=== PATIENT | female | born 1945 | race Caucasian/White ===

== ENCOUNTER 2018-03-11 13:46 | Inpatient (IN) | payer MEDICARE ==
[~2018-03-11] VITALS: Ht 170.2 cm; Wt 68.9 kg
--- NOTE | ~2018-03-11 | PN ---
PATIENT:JANICE FAIRCHILD MEDICAL RECORD: [id number] LOCATION:[facility] ADMISSION DATE: 03/11/18 PROGRESS NOTE DATE OF SERVICE: 03/22/2018 SUBJECTIVE: No new complaint. OBJECTIVE: Staff report, the patient has not been aggressive, but continues to resist activities of daily living and hygiene. She refuses to shower. She has tended to be irritable from time to time. On exam, mood is somewhat irritable. Affect slightly brittle. Speech is terse. Content of thought focuses on somatic complaints. Sensorium shows no change (the patient did not cooperate for a neuropsychological testing with Dr. Giles). ASSESSMENT: No change in diagnosis. PLAN: 1. Continue current medication. 2. Continue supportive therapy. TRANSINT:[id number] Voice Confirmation ID: [id number] DOCUMENT ID: [id number] SUE TEAGUE III, MD at 1007 CC: [id number] DICTATION DATE: 03/22/18 1144 MANAGER EQUIPMENT: 03/22/18 1156 ADM IN [place] [address] [place] [address]
--- NOTE | ~2018-03-11 | PN ---
PATIENT:JANICE FAIRCHILD MEDICAL RECORD: [id number] LOCATION:[facility] ADMISSION DATE: 03/11/18 PROGRESS NOTE DATE OF SERVICE: 03/18/2018 SUBJECTIVE: No new complaint. OBJECTIVE: The patient has not exhibited hallucinosis over the last 24 hours. She is tolerating medication fairly well. On exam, mood is euthymic. Affect is reserved. Speech is tangential. Content of thought as noted above. Sensorium unchanged. ASSESSMENT: No change in diagnosis. PLAN: 1. Continue current medication. 2. Continue supportive therapy. TRANSINT:[id number] Voice Confirmation ID: [id number] DOCUMENT ID: [id number] SUE TEAGUE III, MD at 9232 CC: [id number] DICTATION DATE: 03/18/18 1032 INVESTIGATOR CLAIMS: 03/18/[address] [facility] [address] [place] [address]
--- NOTE | ~2018-03-11 | PN ---
PATIENT:JANICE FAIRCHILD MEDICAL RECORD: [id number] LOCATION:[facility] ADMISSION DATE: 03/11/18 PROGRESS NOTE DATE OF SERVICE: 03/23/2018 SUBJECTIVE: No new complaint. OBJECTIVE: The patient continues to be somewhat withdrawn. Affect remains flat. On exam, the patient makes poor eye contact. Mood is euthymic. Affect is very constricted. Speech is quite terse. Content of thought exhibits nonspecific paranoid ideation. Sensorium is unchanged. The patient is oriented to person only. ASSESSMENT: No change in diagnosis. PLAN: 1. Continue current medication. 2. Continue supportive therapy. TRANSINT:[id number] Voice Confirmation ID: [id number] DOCUMENT ID: [id number] SUE TEAGUE III, MD at 0951 CC: [id number] DICTATION DATE: 03/23/18 112 TAPE RECORDER REPAIRER: 03/23/18 1311 ADM IN [facility] [address] [place] [address]
--- NOTE | ~2018-03-11 | PN ---
PATIENT:JANICE FAIRCHILD MEDICAL RECORD: [id number] LOCATION:[facility] ADMISSION DATE: 03/11/18 PROGRESS NOTE DATE OF SERVICE: 03/24/2018 SUBJECTIVE: No new complaint. OBJECTIVE: The patient remains fairly cooperative. No new problems have been noted. She is tolerating medications well. On exam, mood is euthymic. Affect is very constricted. Speech quite terse. Content of thought unchanged. Sensorium unchanged. ASSESSMENT: No change in diagnosis. PLAN: 1. Continue current medication. 2. Anticipate discharge tomorrow. TRANSINT:[id number] Voice Confirmation ID: [id number] DOCUMENT ID: [id number] SUE TEAGUE III, MD at 1027 CC: [id number] DICTATION DATE: 03/24/18 1058 CASH MANAGEMENT COORDINATOR: 03/24/18 1117 ADM IN [place] [address] [place] [address]
--- NOTE | ~2018-03-11 | PN ---
PATIENT:JANICE FAIRCHILD MEDICAL RECORD: [id number] LOCATION:[facility] ADMISSION DATE: 03/11/18 PROGRESS NOTE DATE OF SERVICE: 03/15/2018 SUBJECTIVE: No new complaint. OBJECTIVE: The patient remains extremely confused, but is now resting well. She is taking medications as prescribed. On exam, mood is euthymic. Affect is constricted. Speech is low in volume and terse. Content of thought negative for overt psychosis. Sensorium unchanged. ASSESSMENT: No change in diagnosis. PLAN: 1. Maintain current medication. 2. Continue supportive therapy. TRANSINT:[id number] Voice Confirmation ID: [id number] DOCUMENT ID: [id number] SUE TEAGUE III, MD at 1133 CC: [id number] DICTATION DATE: 03/15/18 1244 RAG SORTER: 03/15/[address] [facility] [address] [place] [id number]
--- NOTE | ~2018-03-11 | PN ---
PATIENT:JANICE FAIRCHILD MEDICAL RECORD: [id number] LOCATION:[facility] ADMISSION DATE: 03/11/18 PROGRESS NOTE DATE OF SERVICE: 03/16/2018 SUBJECTIVE: No new complaint noted. OBJECTIVE: The patient has been fairly cooperative. 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 On exam, mood is euthymic. Affect is fairly bland. Speech is tangential. Content of thought negative for suicidal ideation. Sensorium is unchanged. ASSESSMENT: No change in diagnosis. PLAN: 1. We will discontinue trazodone and Namenda at night. 2. Add perphenazine 2 mg at bedtime. 3. Continue other medications and supportive therapy. TRANSINT:[id number] Voice Confirmation ID: [id number] DOCUMENT ID: [id number] SUE TEAGUE III, MD at 1019 CC: [id number] DICTATION DATE: 03/16/18 1149 ACCOUNTING SYSTEMS ANALYST: 03/16/18 1204 ADM IN [place] [address] [place] [id number]
--- NOTE | ~2018-03-11 | PN ---
PATIENT:JANICE FAIRCHILD MEDICAL RECORD: [id number] LOCATION:[facility] ADMISSION DATE: 03/11/18 PROGRESS NOTE DATE OF SERVICE: 03/20/2018 SUBJECTIVE: No new complaint. OBJECTIVE: The patient continues to show some lability of affect and requires redirection. She is taking medication as prescribed. On exam, mood is somewhat irritable. Affect is shallow and brittle. Speech is tangential. Content of thought shows nonspecific paranoid ideation. Sensorium shows no change. ASSESSMENT: No change in diagnosis. PLAN: 1. Continue current medication. 2. Continue supportive therapy. TRANSINT:[id number] Voice Confirmation ID: [id number] DOCUMENT ID: [id number] SUE TEAGUE III, MD at 1012 CC: [id number] DICTATION DATE: 03/20/18 0710 FIELD ARTILLERY RADAR OPERATOR: 03/20/18 0908 ADM IN [place] [id number] [place] [address]
--- NOTE | ~2018-03-11 | PN ---
PATIENT:JANICE FAIRCHILD MEDICAL RECORD: [id number] LOCATION:[facility] ADMISSION DATE: 03/11/18 PROGRESS NOTE DATE OF SERVICE: 03/19/2018 SUBJECTIVE: No new complaint. OBJECTIVE: The patient is doing fairly well. She exhibits very poor concentration and short-term memory. However, she has been overall cooperative. On exam today, the patient's mood is pleasant and euthymic. Affect is bland. Speech is tangential. Content of thought is negative for overt psychosis. Sensorium unchanged. ASSESSMENT: No change in diagnosis. PLAN: 1. Continue current medication. 2. Continue supportive therapy. TRANSINT:[id number] Voice Confirmation ID: [id number] DOCUMENT ID: [id number] SUE TEAGUE III, MD at 1229 CC: [id number] DICTATION DATE: 03/19/18 1125 NURSING SERVICE DIRECTOR: 03/19/18 1129 ADM IN [place] [address] [place] [address]
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
--- NOTE | ~2018-03-11 | PN ---
PATIENT:JANICE FAIRCHILD MEDICAL RECORD: [id number] LOCATION:[facility] ADMISSION DATE: 03/11/18 PROGRESS NOTE DATE OF SERVICE: 03/17/2018 SUBJECTIVE: No new complaint. OBJECTIVE: The patient describes the other patients as "children." She shows other evidence of indeed exhibiting some visual hallucinosis. On exam, mood is euthymic. Affect is very constricted. Speech is terse. Content of thought as noted above. Sensorium unchanged. ASSESSMENT: No change in diagnosis. PLAN: 1. We will get neuropsychological testing with Dr. Giles. 2. Continue current medications and supportive therapy. TRANSINT: Voice Confirmation ID: [id number] DOCUMENT ID: [id number] SUE TEAGUE III, MD at 1829 CC: [id number] DICTATION DATE: 03/17/18 1116 LIEN SEARCHER: 03/17/18 1134 ADM IN [facility] [address] [place] [address]
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
[~2018-03-11 13:46] MED LIST: ARICEPT10 MG PO; ASPIRIN81 MG PO; LEVOXYL50 MCG PO; MEGACE40 MG PO; PLAVIX75 MG PO
[2018-03-11] MEDS ORDERED: BUSPAR10 MG PO (17:48)
[2018-03-11] MEDS ORDERED: DEPAKOTE SPRIN125 MG PO (17:50)
[2018-03-11] MEDS ORDERED: MOBIC7.5 MG PO (17:52)
[2018-03-11] MEDS ORDERED: NAMENDA5 MG PO (17:53)
[2018-03-11] MEDS ORDERED: ZOCOR20 MG PO (17:54)
[2018-03-11] MEDS ORDERED: VITAMIN B-121000 MCG PO (17:55)
[2018-03-11] MEDS ORDERED: TRAZODONE HCL50 MG PO ×2 (17:55→17:57)
[2018-03-11] MEDS ORDERED: ATIVAN0.5 MG PO (17:57)
[2018-03-11 18:15] LABS: BASOPHILS 0.9 % (0-2); EOSINOPHILS 4.8 % (0-7); HEMATOCRIT 39.7 % (36.0-48.0); IMMATURE GRANULOCYTES 0.1 % (0-5); LYMPHOCYTES 38.4 % (15-50); MCH 31.2 pg (26.0-34.0); MCHC 32.7 g/dL (31.0-37.0); MCV 95.2 fL (80.0-100.0); MONOCYTES 9.3 % (2-11); NEUTROPHILS 46.5 % (40-80); PLATELET COUNT 219 10x3/uL (130-400); RBC 4.17 10x6/uL (4.00-5.40); RDW 13.1 % (11.5-14.5); WBC 7.6 10x3/uL (4.8-10.8)
[2018-03-11 18:43] LABS: ALBUMIN 3.5 g/dL (3.4-5.0); ALKALINE PHOSPHATASE 107 U/L (46-116); ALT (SGPT) 12 U/L (10-68); BILIRUBIN - TOTAL 0.28 mg/dL (0.2-1.3); CALC OSMOLALITY 287 mosm/kg (275-300); CARBON DIOXIDE 32.2 mmol/L (21.0-32.0); CHLORIDE - SERUM 107 mmol/L (98-107); CHOLESTEROL, TOTAL 150 mg/dL (0-200); CREATININE - SERUM 0.8 mg/dL (0.6-1.3); GLUCOSE 102 mg/dL (74-106); HDL CHOLESTEROL 75 mg/dL (32-96); LDL CHOLESTEROL 65 mg/dL (0-100); LDL-HDL RATIO 0.9 ratio (1.5-3.5); POTASSIUM - SERUM 3.9 mmol/L (3.5-5.1); PROTEIN - SERUM 7.2 g/dL (6.4-8.2); SODIUM 145 mmol/L (136-145); THYROID STIMULATING HORMONE 0.12 uIU/mL (0.36-3.74); TRIGLYCERIDE 54 mg/dL (30-200); UREA NITROGEN 9 mg/dL (7-18); eGFR NON AFRICAN AMERICAN 75 mL/min (90-120)
[2018-03-11 18:44] VITALS: BP 151/72
[2018-03-11 19:24] VITALS: BP 174/74
[2018-03-12 08:12] VITALS: BP 142/87
[2018-03-12 14:43] LABS: APPEARANCE SLT CLOUDY (CLEAR); BACTERIA FEW /hpf (NONE SEEN); BILIRUBIN NEGATIVE (NEGATIVE); COLOR YELLOW (YELLOW); EPITHELIAL CELLS 0-5 /hpf (0-5); GLUCOSE NEGATIVE (NEGATIVE); KETONE NEGATIVE (NEGATIVE); MUCUS <1+ /lpf (NONE SEEN); NITRITE NEGATIVE (NEGATIVE); PROTEIN NEGATIVE (NEGATIVE); WHITE CELLS - URINE 0-5 /hpf (0-5)
[2018-03-12 15:04] VITALS: BMI 23.8
[2018-03-12 19:41] VITALS: BP 145/73
[2018-03-13 05:15] LABS: RAPID PLASMA REAGIN Non Reactive (Non Reactive)
[2018-03-13 08:03] VITALS: BP 164/45
[2018-03-13 08:18] LABS: FOLATE (FOLIC ACID) - SERUM 9.7 ng/mL (>3.0)
[2018-03-13 21:06] LABS: VITAMIN D 25 HYDROXY 15.3 ng/mL (30.0-100.0)
[2018-03-14 08:24] VITALS: BP 148/67
[2018-03-15 08:13] VITALS: BMI 23.8
[2018-03-15 10:28] VITALS: BP 186/83
[2018-03-15 20:21] VITALS: BP 169/64
[2018-03-16 10:15] VITALS: BP 117/60
[2018-03-16 19:38] VITALS: BP 195/87
[2018-03-17 08:31] VITALS: BP 179/68
[2018-03-18 08:10] VITALS: BP 142/85
[2018-03-18 14:11] VITALS: Ht 170.2 cm; Wt 68.9 kg
[2018-03-18 19:08] VITALS: BP 191/81
[2018-03-19 07:43] VITALS: BP 99/75
[2018-03-19 19:26] VITALS: BP 139/73
[2018-03-20 11:48] VITALS: BP 117/65
[2018-03-20 19:33] VITALS: BP 184/72
[2018-03-21 07:00] VITALS: BP 133/76
[2018-03-21 20:11] VITALS: BP 157/85
[2018-03-22 07:00] VITALS: BP 157/67
[2018-03-22 19:39] VITALS: BP 159/79
[2018-03-23 09:08] VITALS: BP 119/62
[2018-03-23 19:36] VITALS: BP 143/69
[2018-03-24 10:02] VITALS: BP 137/63
[2018-03-24] MEDS ORDERED: LISINOPRIL10 MG PO (11:02)
[2018-03-24] MEDS ORDERED: NORVASC5 MG PO (11:02)
[2018-03-24] MEDS ORDERED: PERPHENAZINE2 MG PO (11:03)
[2018-03-24] MEDS ORDERED: FOLIC ACID1 MG PO (11:04)
[2018-03-24] MEDS ORDERED: VITAMIN D5000 UNIT PO (11:04)
[2018-03-24 19:51] VITALS: BP 146/56
[2018-03-25 10:30] VITALS: BP 10/65
== END 2018-03-25 14:30 | DRG 57 ==
LOC: D.PSYCH 13:46
PROVIDERS: Psychiatry & Neurology Psychiatry
DX: G30.9 Alzheimer's disease, unspecified (principal); F02.81 Dementia in other diseases classified elsewhere, unspecified severity, with behavioral disturbance; I10 Essential (primary) hypertension; E53.8 Deficiency of other specified B group vitamins; E55.9 Vitamin D deficiency, unspecified; E03.9 Hypothyroidism, unspecified; E78.5 Hyperlipidemia, unspecified; F41.9 Anxiety disorder, unspecified; M19.90 Unspecified osteoarthritis, unspecified site

== ENCOUNTER 2018-05-25 18:06 | Inpatient (IN) | payer MEDICARE, MEDICAID ==
[~2018-05-25] VITALS: Ht 170.2 cm; Wt 67.3 kg
--- NOTE | ~2018-05-25 | PN ---
PATIENT:JANICE FAIRCHILD MEDICAL RECORD: [id number] LOCATION:[facility]RAJEE[facility] AlekEvesnLisseth ADMISSION DATE: 05/25/18 PROGRESS NOTE DATE OF SERVICE: 05/28/2018 SUBJECTIVE: The patient's case was discussed with staff. She has no new complaint. OBJECTIVE: The patient is in good behavioral control with limited insight about her condition. She does tolerate her medicines well. Eye contact is fair. Concentration is fair. ASSESSMENT: No change in diagnoses. PLAN: Supportive and educational interventions were made. Long-term prognosis is guarded. TRANSINT:[id number] Voice Confirmation ID: [id number] DOCUMENT ID: [id number] KELLY BUITRAGO MD at 1223 CC: [id number] DICTATION DATE: 05/28/18 1457 CALENDERING MACHINE OPERATOR: 05/28/18 1509 ADM IN [place] [address] [place] [address]
--- NOTE | ~2018-05-25 | PN ---
PATIENT:JANICE FAIRCHILD MEDICAL RECORD: [id number] LOCATION:[facility] GastonEvensLisseth ADMISSION DATE: 05/25/18 PROGRESS NOTE DATE OF SERVICE: 05/31/2018 SUBJECTIVE: The patient's case was discussed with staff. She has no new complaint. OBJECTIVE: The patient is in good behavioral control with limited insight about her condition. She is confused and apparently has a urinary tract infection. ASSESSMENT: No change in diagnoses. PLAN: Supportive and educational interventions were made. Long-term prognosis guarded. TRANSINT:[id number] Voice Confirmation ID: [id number] DOCUMENT ID: [id number] KELLY BUITRAGO MD at 1406 CC: [id number] DICTATION DATE: 05/31/18 1142 PUSHER RUNNER: 05/31/18 1202 ADM IN [place] [address] [place] [address]
--- NOTE | ~2018-05-25 | PN ---
PATIENT:JANICE FAIRCHILD MEDICAL RECORD: [id number] LOCATION:[facility] ADMISSION DATE: 05/25/18 PROGRESS NOTE DATE OF SERVICE: 06/08/2018 SUBJECTIVE: The patient's case was discussed with staff. She has no new complaint. OBJECTIVE: The patient denies any intent to harm herself or others. She is severely impaired cognitively, but has not been aggressive. She is only eating marginally well and is sleeping very well. ASSESSMENT: No change in diagnoses. PLAN: Supportive and educational interventions were made. The patient will be monitored for clinical changes associated with her current medicines. TRANSINT:[id number] Voice Confirmation ID: [id number] DOCUMENT ID: [id number] KELLY BUITRAGO MD at 1234 CC: [id number] DICTATION DATE: 06/08/181915 AIR SEALING TECHNICIAN: 06/08/182009 ADM IN [facility] [address] [place] [address]
--- NOTE | ~2018-05-25 | PN ---
PATIENT:JANICE FAIRCHILD MEDICAL RECORD: [id number] LOCATION:[facility] ADMISSION DATE: 05/25/18 PROGRESS NOTE DATE OF SERVICE: 06/01/2018 SUBJECTIVE: The patient's case was discussed with staff. She has no new complaint. OBJECTIVE: The patient is denying intent to harm herself or others. She did tolerate her initial dose of Lexapro well. ASSESSMENT: No change in diagnoses. PLAN: The patient does have a depressed mood. She is taking Lexapro and I am going to increase the dose of the medication from 5 to 10 mg daily. Her long-term prognosis is guarded. TRANSINT:[id number] Voice Confirmation ID: [id number] DOCUMENT ID: [id number] KELLY BUITRAGO MD at 1339 CC: [id number] DICTATION DATE: 06/01/18 1432 POLY AREA SUPERVISOR: 06/01/18 1443 ADM IN [place] [address] [place] [address]
--- NOTE | ~2018-05-25 | PN ---
PATIENT:JANICE FAIRCHILD MEDICAL RECORD: [id number] LOCATION:[facility] ADMISSION DATE: 05/25/18 PROGRESS NOTE DATE OF SERVICE: 05/27/2018 SUBJECTIVE: The patient's case was discussed with staff. She has no new complaint. OBJECTIVE: The patient is severely impaired cognitively, but her behavior is better today. She denies that she would seek to harm herself or others. ASSESSMENT: No change in diagnoses. PLAN: Brief supportive and educational interventions were made. Long-term prognosis is guarded. TRANSINT:[id number] Voice Confirmation ID: [id number] DOCUMENT ID: [id number] KELLY BUITRAGO MD at 1322 CC: [id number] DICTATION DATE: 05/27/18 1206 HOUSE DECORATOR: 05/27/18 1218 ADM IN [place] [address] [place] [address]
--- NOTE | ~2018-05-25 | DS ---
PATIENT:JANICE FAIRCHILD :47 MEDICAL RECORD: [id number] DISCHARGE SUMMARY ADMISSION DATE: 05/25/18 DISCHARGE DATE: 06/10/18 IDENTIFYING DATA: The patient is 72 years old and she was admitted to the hospital on a voluntary basis because of agitation. The patient lives in a local long term and has a long established diagnosis of dementia. She recently has become confused, agitated, and aggressive at the long term. She was admitted to this facility to address those behaviors and she was unable to provide much in the way of useful history because of her advanced dementia. HOSPITAL COURSE: The patient was admitted to the hospital and evaluated from both a medical, psychological, and social standpoint. She was treated with both mood stabilizing and memory enhancing medications. She showed significant improvement in her underlying behaviors. She was subsequently transferred to the long term and follow up is to be with her primary care long term physician. TRANSINT:[id number] Voice Confirmation ID: [id number] DOCUMENT ID: [id number] KELLY BUITRAGO MD at 1053 CC: [id number] DICTATION DATE: 06/18/18 1330 CRYOGENIC TRANSPORT DRIVER: 06/18/18 1343 DIS IN 06/10/18 [facility] [address] [place] [address]
--- NOTE | ~2018-05-25 | PN ---
PATIENT:JANICE FAIRCHILD MEDICAL RECORD: [id number] LOCATION:EDSON ReyesLisseth ADMISSION DATE: 05/25/18 PROGRESS NOTE DATE OF SERVICE: 06/09/2018 SUBJECTIVE: The patient's case was discussed with staff. She has no new complaint. OBJECTIVE: The patient denies intent to harm herself or others. She generally tolerates her medicines well. Eye contact is fair. ASSESSMENT: No change in diagnoses. PLAN: Current medicines will be maintained. I am going to discharge the patient tomorrow unless her condition worsens. TRANSINT:[id number] Voice Confirmation ID: [id number] DOCUMENT ID: [id number] KELLY BUITRAGO MD at 1336 CC: [id number] DICTATION DATE: 06/09/18 1329 SPEECH AND LANGUAGE SPECIALIST: 06/09/18 1336 ADM IN [facility] [address] [place] [id number]
--- NOTE | ~2018-05-25 | PN ---
PATIENT:JANICE FAIRCHILD MEDICAL RECORD: [id number] LOCATION:[facility] Goodman ADMISSION DATE: 05/25/18 PROGRESS NOTE DATE OF SERVICE: 06/05/2018 SUBJECTIVE: The patient's case was discussed with staff. She has no new complaint. OBJECTIVE: The patient refused her medicines this morning for reasons that are unknown. She has pretty limited insight about her condition, but with great effort the staff has been able to go back to her every hour or so and get her to take 1 or 2 pills. Generally, she has been compliant, so I am not sure why she is refusing medicines today. ASSESSMENT: No change in diagnoses. PLAN: Brief supportive and educational interventions were made. Long-term prognosis is guarded. TRANSINT:[id number] Voice Confirmation ID: [id number] DOCUMENT ID: [id number] KELLY BUITRAGO MD at 1326 CC: [id number] DICTATION DATE: 06/05/18 1320 COMPLEX CASE MANAGER: 06/05/18 1431 ADM IN [place] [address] [place] [id number]
--- NOTE | ~2018-05-25 | PN ---
PATIENT:JANICE FAIRCHILD MEDICAL RECORD: [id number] LOCATION:AlekERROL AmyLisseth ADMISSION DATE: 05/25/18 PROGRESS NOTE DATE OF SERVICE: 06/07/2018 SUBJECTIVE: The patient's case was discussed with staff. She has no new complaint. OBJECTIVE: The patient denies intent to harm herself or others. She is tolerating her medications well. She has pretty limited insight about her situation. She is on an antidepressant, but continues to have a depressed mood. She only ate about half of what was presented to her last night, but she did sleep 10 hours and does not look over sedated today. There is an ongoing problem with paranoia, for which I have prescribed the Trilafon, but if she continues to not have improvement in her paranoia, I am going to have to change to a different agent because I do not want to excessively sedate her at night. For today, I am just going to leave things as they are. TRANSINT:[id number] Voice Confirmation ID: [id number] DOCUMENT ID: [id number] KELLY BUITRAGO MD at 1329 CC: [id number] DICTATION DATE: 06/07/18 1443 CONTINUITY TESTER: 06/07/18 1449 ADM IN [place] [id number] [place] [address]
--- NOTE | ~2018-05-25 | PN ---
PATIENT:JANICE FAIRCHILD MEDICAL RECORD: [id number] LOCATION:[facility] Goodman ADMISSION DATE: 05/25/18 PROGRESS NOTE DATE OF SERVICE: 06/06/2018 SUBJECTIVE: The patient's case was discussed with staff. She has no new complaint. OBJECTIVE: The patient denies intent to harm herself or others. She is tolerating her medicines well. Eye contact is fair. ASSESSMENT: No change in diagnoses. PLAN: The patient is extremely confused and unfortunately is not eating as well as I would like. I am going to continue to encourage her to eat and have prescribed Megace. TRANSINT:[id number] Voice Confirmation ID: [id number] DOCUMENT ID: [id number] KELLY BUITRAGO MD at 1326 CC: [id number] DICTATION DATE: 06/06/18 1254 REAR LOAD TRUCK DRIVER: 06/06/18 1305 ADM IN [place] [address] [place] [id number]
--- NOTE | ~2018-05-25 | PSY ---
PATIENT NAME:JANICE FAIRCHILD MEDICAL RECORD: [id number] : 47 LOCATION:[facility] ADMISSION DATE: 05/25/18 ACCOUNT: [id number] PSYCHIATRIC EVALUATION DATE OF EVALUATION: 05/26/18 PSYCHIATRIC EVALUATION IDENTIFYING DATA: The patient is 72 years old and she is admitted to the hospital on a voluntary basis. CHIEF COMPLAINT: Agitation. HISTORY OF PRESENT ILLNESS: The patient lives in a local skilled nursing. She has a known and established diagnosis of dementia. She has recently been increasingly confused, agitated, and aggressive at the skilled nursing. She was admitted to this facility in February for similar reasons. She is not able to provide much in the way of useful history. PAST MEDICAL HISTORY: Significant for hypothyroidism, emphysema, hypertension. PAST PSYCHIATRIC HISTORY: Significant for an established diagnosis of dementia and one previous hospitalization because of agitated behavior associated with the dementia. FAMILY HISTORY: Unknown. ALLERGIES: No known drug allergies. CURRENT MEDICATIONS: Include Norvasc, lisinopril, Trilafon, vitamin D, and folic acid. SOCIAL HISTORY: The patient is a former smoker. She does not have a history of drug or alcohol use. She is and has 2 biologic children. She lives in a skilled nursing in [place]. MENTAL STATUS EXAMINATION: The patient is awake, alert, and oriented to person only. Her mood is flat. Her affect is generally appropriate. Thought processes are disorganized and her memory, concentration, and abstraction abilities are at least moderately impaired. She denies that she would seek to harm herself or others and she denies psychotic symptoms. ASSETS: Supportive family members. LIABILITIES: Limited insight. DIAGNOSTIC IMPRESSION: AXIS I: Senile dementia of the Alzheimer's type with behavioral disturbances. AXIS II: None. AXIS III: Hypertension and hypothyroidism. AXIS IV: Moderate stressors. AXIS V: Global assessment of functioning is 30. PLAN: At this time, the patient is admitted to the hospital for a comprehensive medical, psychological, and social evaluation. She will be treated with both memory enhancing and mood stabilizing medications. Her long-term prognosis is guarded. TRANSINT:[id number] Voice Confirmation ID: [id number] DOCUMENT ID: [id number] KELLY BUITRAGO MD at 1053 CC: [id number] DICTATION DATE: 05/26/18 1435 UPHOLSTERY HANDLER: 05/26/18 1516 ADM IN [facility] [address] [facility] [place] [address]
--- NOTE | ~2018-05-25 | PN ---
PATIENT:JANICE FAIRCHILD MEDICAL RECORD: [id number] LOCATION:[facility] ADMISSION DATE: 05/25/18 PROGRESS NOTE DATE OF SERVICE: 05/30/2018 SUBJECTIVE: The patient's case was discussed with staff. She has no new complaint. OBJECTIVE: The patient denies intent to harm herself or others. She is quite confused. She has not been aggressive today. She is not eating very well, but it is marginally adequate. She is sleeping well. ASSESSMENT: No change in diagnoses. PLAN: Current medicines and therapies have been reviewed and will be maintained. Long-term prognosis is guarded. TRANSINT:[id number] Voice Confirmation ID: [id number] DOCUMENT ID: [id number] KELLY BUITRAGO MD at 1059 CC: [id number] DICTATION DATE: 05/30/18 1102 AUDIOVISUAL AIDS TECHNICIAN: 05/30/18 1118 ADM IN [facility] [address] [place] [address]
--- NOTE | ~2018-05-25 | PN ---
PATIENT:JANICE FAIRCHILD MEDICAL RECORD: [id number] LOCATION:[facility] ADMISSION DATE: 05/25/18 PROGRESS NOTE DATE OF SERVICE: 06/03/2018 SUBJECTIVE: The patient's case was discussed with staff. She has no new complaint. OBJECTIVE: The patient denies intent to harm herself or others. She generally tolerates her medicines well. ASSESSMENT: No change in diagnoses. PLAN: The patient will have her Lexapro increased to 20 mg daily. She has pretty limited insight about her condition, but I do think that she has some depressive symptoms that may respond to the Lexapro. TRANSINT:[id number] Voice Confirmation ID: [id number] DOCUMENT ID: [id number] KELLY BUITRAGO MD at 1222 CC: [id number] DICTATION DATE: 06/03/18 1255 PAROLE BOARD MEMBER: 06/03/18 1301 ADM IN [facility] [address] [place] [address]
--- NOTE | ~2018-05-25 | PN ---
PATIENT:JANICE FAIRCHILD MEDICAL RECORD: [id number] LOCATION:[facility]isseth ADMISSION DATE: 05/25/18 PROGRESS NOTE DATE OF SERVICE: 05/29/2018 SUBJECTIVE: The patient's case was discussed with staff. She has no new complaint. OBJECTIVE: The patient denies intent to harm herself or others. She is quite confused. She has very limited insight about her situation. ASSESSMENT: No change in diagnoses. PLAN: Supportive and educational interventions were made. Long-term prognosis is guarded. TRANSINT:[id number] Voice Confirmation ID: [id number] DOCUMENT ID: [id number] KELLY BUITRAGO MD at 1045 CC: [id number] DICTATION DATE: 05/29/18 1246 CONSULTING SME: 05/29/18 1257 ADM IN [place] [address] [place] [address]
--- NOTE | ~2018-05-25 | PN ---
PATIENT:JANICE FAIRCHILD MEDICAL RECORD: [id number] LOCATION:[facility] ADMISSION DATE: 05/25/18 PROGRESS NOTE DATE OF SERVICE: 06/04/2018 SUBJECTIVE: The patient's case was discussed with staff. She has no new complaint. OBJECTIVE: The patient is severely impaired cognitively, but has been in good behavioral control. I think part of that is related to her underlying improvement and part of it is just simply related to the fact that she is in a highly structured environment where staff are monitoring her and her behavior closely. ASSESSMENT: No change in diagnoses. PLAN: Current medicines have been reviewed and will be maintained with the exception of the Namenda, which I am going to increase to 5 mg twice daily. Her long-term prognosis is guarded. TRANSINT:[id number] Voice Confirmation ID: [id number] DOCUMENT ID: [id number] KELLY BUITRAGO MD at 1243 CC: [id number] DICTATION DATE: 06/04/18 1302 TOOLER: 06/04/18 1314 ADM IN [place] [address] [place] [address]
--- NOTE | ~2018-05-25 | PN ---
PATIENT:JANICE FAIRCHILD MEDICAL RECORD: [id number] LOCATION:[facility] Rex ADMISSION DATE: 05/25/18 PROGRESS NOTE DATE OF SERVICE: 06/02/2018 SUBJECTIVE: The patient's case was discussed with staff. She has no new complaint. OBJECTIVE: The patient denies intent to harm herself or others. She generally tolerates her medicines well. ASSESSMENT: No change in diagnoses. PLAN: Current medicines have been reviewed and will be maintained. Her long-term prognosis is guarded. I am going to raise the dose of her Lexapro to 15 mg daily. TRANSINT:[id number] Voice Confirmation ID: [id number] DOCUMENT ID: [id number] KELLY BUITRAGO MD at 1234 CC: [id number] DICTATION DATE: 06/02/18 1406 WELDING PANTOGRAPH OPERATOR: 06/02/18 1419 ADM IN [place] [id number] [place] [id number]
--- NOTE | ~2018-05-25 | PN ---
PATIENT:JANICE FAIRCHILD MEDICAL RECORD: [id number] LOCATION:[facility] AlekEvensLisseth ADMISSION DATE: 05/25/18 PROGRESS NOTE DATE OF SERVICE: 06/10/2018 SUBJECTIVE: The patient's case was discussed with staff. She has no new complaint. OBJECTIVE: The patient is in good behavioral control with poor insight about her condition. ASSESSMENT: No change in diagnoses. PLAN: Brief supportive and educational interventions were made. Long-term prognosis is guarded. I anticipate that she can be transitioned out of the hospital today and follow up will be with her primary care care home physician. TRANSINT:[id number] Voice Confirmation ID: [id number] DOCUMENT ID: [id number] KELLY BUITRAGO MD at 1435 CC: [id number] DICTATION DATE: 06/10/18 1403 COMMERCIAL REVIEW APPRAISER: 06/10/18 1413 DIS IN 06/10/18 [facility] [address] [place] [address]
[~2018-05-25 18:06] MED LIST changes: +ATIVAN0.5 MG PO; +BUSPAR10 MG PO; +DEPAKOTE SPRIN125 MG PO; +FOLIC ACID1 MG PO; +LISINOPRIL10 MG PO; +MOBIC7.5 MG PO; +NAMENDA5 MG PO; +NORVASC5 MG PO; +PERPHENAZINE2 MG PO; +TRAZODONE HCL50 MG PO; +VITAMIN B-121000 MCG PO; +VITAMIN D5000 UNIT PO; +ZOCOR20 MG PO
[2018-05-25] MEDS ORDERED: NAMENDA5 MG PO (20:03)
[2018-05-25] MEDS ORDERED: SYNTHROID75 MCG PO (20:04)
[2018-05-25 22:03] VITALS: BP 151/68
[2018-05-25 23:32] LABS: APPEARANCE CLEAR (CLEAR); BILIRUBIN NEGATIVE (NEGATIVE); COLOR YELLOW (YELLOW); GLUCOSE NEGATIVE (NEGATIVE); KETONE NEGATIVE (NEGATIVE); NITRITE NEGATIVE (NEGATIVE); PROTEIN NEGATIVE (NEGATIVE); SPECIFIC GRAVITY 1.005 (1.005-1.020); UROBILINOGEN NORMAL (NORMAL)
[2018-05-25 23:34] LABS: BACTERIA MANY /hpf (NONE SEEN); EPITHELIAL CELLS 0-5 /hpf (0-5); RED CELLS - URINE 0-5 /hpf (0-5)
[2018-05-26 03:58] VITALS: BP 151/68; BMI 23.4
[2018-05-26 09:00] VITALS: BP 140/62
[2018-05-26 10:59] LABS: BASOPHILS 0.5 % (0-2); EOSINOPHILS 2.5 % (0-7); HEMATOCRIT 40.7 % (36.0-48.0); HEMOGLOBIN 13.5 g/dL (12-16); IMMATURE GRANULOCYTES 0.2 % (0-5); LYMPHOCYTES 29.8 % (15-50); MCH 31.5 pg (26.0-34.0); MCHC 33.2 g/dL (31.0-37.0); MCV 94.9 fL (80.0-100.0); MEAN PLATELET VOLUME 11.5 fL (7.4-10.4); MONOCYTES 6.6 % (2-11); NEUTROPHILS 60.4 % (40-80); PLATELET COUNT 227 10x3/uL (130-400); RBC 4.29 10x6/uL (4.00-5.40); RDW 13.2 % (11.5-14.5); WBC 10.8 10x3/uL (4.8-10.8)
[2018-05-26 11:24] LABS: ALBUMIN 3.6 g/dL (3.4-5.0); ALKALINE PHOSPHATASE 83 U/L (46-116); ALT (SGPT) 16 U/L (10-68); BILIRUBIN - TOTAL 0.35 mg/dL (0.2-1.3); CALC OSMOLALITY 279 mosm/kg (275-300); CALCIUM 8.8 mg/dL (8.5-10.1); CARBON DIOXIDE 31.8 mmol/L (21.0-32.0); CHLORIDE - SERUM 106 mmol/L (98-107); CHOL - HDL RATIO 2.3 ratio (2.3-4.1); CHOLESTEROL, TOTAL 177 mg/dL (0-200); CREATININE - SERUM 0.8 mg/dL (0.6-1.3); GLUCOSE 102 mg/dL (74-106); HDL CHOLESTEROL 76 mg/dL (32-96); LDL CHOLESTEROL 85 mg/dL (0-100); LDL-HDL RATIO 1.1 ratio (1.5-3.5); POTASSIUM - SERUM 4.2 mmol/L (3.5-5.1); PROTEIN - SERUM 7.2 g/dL (6.4-8.2); SODIUM 141 mmol/L (136-145); THYROID STIMULATING HORMONE 0.09 uIU/mL (0.36-3.74); TRIGLYCERIDE 80 mg/dL (30-200); UREA NITROGEN 11 mg/dL (7-18); VALPROIC ACID (DEPAKOTE) 35.8 ug/mL (50.0-100.0); eGFR NON AFRICAN AMERICAN 75 mL/min (90-120)
[2018-05-26 14:19] VITALS: BMI 23.3
[2018-05-26 19:06] VITALS: BP 114/60
[2018-05-27 06:17] LABS: RAPID PLASMA REAGIN Non Reactive (Non Reactive)
[2018-05-27 08:20] LABS: FOLATE (FOLIC ACID) - SERUM >20.0 ng/mL (>3.0)
[2018-05-27 09:19] LABS: VITAMIN D 25 HYDROXY 46.2 ng/mL (30.0-100.0)
[2018-05-27 10:35] VITALS: BP 142/69
[2018-05-27 22:38] VITALS: BP 130/72
[2018-05-28 10:25] VITALS: BP 122/61
[2018-05-28 21:17] VITALS: BP 130/70
[2018-05-29 10:13] VITALS: BP 122/57
[2018-05-29 21:27] VITALS: BP 140/68
[2018-05-30 09:29] VITALS: BP 118/62
[2018-05-30 19:27] VITALS: BP 134/59
[2018-05-31 08:00] VITALS: BP 117/56
[2018-05-31 19:17] VITALS: BP 111/56
[2018-06-01 08:00] VITALS: BP 134/64
[2018-06-01 20:15] VITALS: BP 135/56
[2018-06-02 10:53] VITALS: BP 125/73
[2018-06-02 19:53] VITALS: BP 168/70
[2018-06-03 10:21] VITALS: BP 126/65
[2018-06-03 22:29] VITALS: BP 143/59
[2018-06-04 08:54] VITALS: BP 122/62
[2018-06-04 20:13] VITALS: BP 107/59
[2018-06-05 08:00] VITALS: BP 99/55
[2018-06-05 20:23] VITALS: BP 134/70
[2018-06-06 08:00] VITALS: BP 125/62
[2018-06-06 19:16] VITALS: BP 132/57
[2018-06-07 07:00] VITALS: BP 129/64
[2018-06-07 13:44] VITALS: BMI 23.2
[2018-06-07 19:58] VITALS: BP 142/55
[2018-06-08 08:00] VITALS: BP 149/63
[2018-06-08 19:58] VITALS: BP 153/77
[2018-06-09 08:35] VITALS: BP 130/60
[2018-06-09 10:10] VITALS: BMI 23.2
[2018-06-09 20:00] VITALS: BP 139/58
[2018-06-09] MEDS ORDERED: Aricept PO (20:09)
[2018-06-09] MEDS ORDERED: NORVASC5 MG PO (20:10)
[2018-06-09] MEDS ORDERED: LISINOPRIL10 MG PO (20:11)
[2018-06-09] MEDS ORDERED: NAMENDA5 MG PO (20:12)
[2018-06-09] MEDS ORDERED: LEXAPRO20 MG PO (20:13)
[2018-06-09] MEDS ORDERED: SYNTHROID25 MCG PO (20:15)
[2018-06-09] MEDS ORDERED: MEGACE ES625 MG/5 M PO (20:15)
[2018-06-09] MEDS ORDERED: ASPIRIN81 MG PO (20:16)
[2018-06-10 10:52] VITALS: BP 145/50
[2018-06-10 15:37] VITALS: Ht 170.2 cm; Wt 67.3 kg
== END 2018-06-10 14:15 | DRG 57 ==
LOC: D.PSYCH 18:06
PROVIDERS: Psychiatry & Neurology Psychiatry
DX: G30.1 Alzheimer's disease with late onset (principal); F02.81 Dementia in other diseases classified elsewhere, unspecified severity, with behavioral disturbance; N39.0 Urinary tract infection, site not specified; F41.9 Anxiety disorder, unspecified; I10 Essential (primary) hypertension; E03.9 Hypothyroidism, unspecified; E78.5 Hyperlipidemia, unspecified; I65.23 Occlusion and stenosis of bilateral carotid arteries; E55.9 Vitamin D deficiency, unspecified; E53.8 Deficiency of other specified B group vitamins; K59.00 Constipation, unspecified; M19.90 Unspecified osteoarthritis, unspecified site

== ENCOUNTER 2019-02-22 12:28 | Emergency (ER) | payer MEDICARE, MEDICAID ==
[~2019-02-22] VITALS: Ht 170.2 cm; Wt 61.4 kg
[~2019-02-22 12:28] MED LIST changes: +Aricept PO; +LEXAPRO20 MG PO; +MEGACE ES625 MG/5 M PO; +SYNTHROID25 MCG PO; +SYNTHROID75 MCG PO
[2019-02-22 12:34] VITALS: Ht 170.2 cm; Wt 61.4 kg
[2019-02-22 13:27] LABS: BASOPHILS 0.5 % (0-2); EOSINOPHILS 1.5 % (0-7); HEMATOCRIT 38.6 % (36.0-48.0); HEMOGLOBIN 12.8 g/dL (12-16); IMMATURE GRANULOCYTES 0.1 % (0-5); LYMPHOCYTES 27.2 % (15-50); MCH 30.3 pg (26.0-34.0); MCHC 33.2 g/dL (31.0-37.0); MCV 91.5 fL (80.0-100.0); MEAN PLATELET VOLUME 10.1 fL (7.4-10.4); MONOCYTES 6.9 % (2-11); NEUTROPHILS 63.8 % (40-80); RBC 4.22 10x6/uL (4.00-5.40); RDW 14.3 % (11.5-14.5); WBC 8.8 10x3/uL (4.8-10.8)
[2019-02-22 13:29] LABS: PLATELET COUNT 307 10x3/uL (130-400)
[2019-02-22 13:43] LABS: ALBUMIN 3.2 g/dL (3.4-5.0); ANION GAP 13.1 mmol/L (8-16); BILIRUBIN - TOTAL 0.3 mg/dL (0.2-1.3); CALCIUM 9.1 mg/dL (8.5-10.1); CARBON DIOXIDE 26.8 mmol/L (21.0-32.0); CREATININE - SERUM 0.8 mg/dL (0.6-1.3); POTASSIUM - SERUM 3.9 mmol/L (3.5-5.1); PROTEIN - SERUM 6.7 g/dL (6.4-8.2)
[2019-02-22] MEDS ORDERED: CLEOCIN HCL300 MG PO (14:16)
[2019-02-22] MEDS ORDERED: KEFLEX500 MG PO (14:16)
[2019-02-22 14:28] VITALS: BP 102/60
== END 2019-02-22 14:57 | disposition home or self-care (01) ==
LOC: D.ER 12:28
PROVIDERS: Family Medicine
DX: L03.032 Cellulitis of left toe (principal)

== ENCOUNTER 2019-03-16 02:28 | Inpatient (IN) | payer MEDICARE ==
[~2019-03-16] VITALS: Ht 170.2 cm; Wt 84.8 kg
[2019-03-16] VITALS (20 sets, daily range): BP systolic 74–172; BP diastolic 39–91; Ht 170.2 cm; Wt 84.8 kg
[~2019-03-16 02:28] MED LIST changes: +CLEOCIN HCL300 MG PO; +KEFLEX500 MG PO
--- NOTE | 2019-03-16 03:33 | NUR ---
HOMECARE AND FOLLOW UP INFORMATION PROVIDED, PT ACKNOWLEDGED, PT STABLE ATDC.
[2019-03-16 03:34] LABS: BASOPHILS 0.2 % (0-2); EOSINOPHILS 0.1 % (0-7); HEMATOCRIT 22.7 % (36.0-48.0); IMMATURE GRANULOCYTES 0.8 % (0-5); LYMPHOCYTES 2.7 % (15-50); MCH 29.9 pg (26.0-34.0); MCHC 32.2 g/dL (31.0-37.0); MEAN PLATELET VOLUME 9.6 fL (7.4-10.4); MONOCYTES 9.2 % (2-11); PLATELET COUNT 293 10x3/uL (130-400); RBC 2.44 10x6/uL (4.00-5.40); RDW 14.8 % (11.5-14.5); WBC 19.9 10x3/uL (4.8-10.8)
[2019-03-16 03:37] LABS: HEMOGLOBIN 7.3 g/dL (12-16)
[2019-03-16 03:45] LABS: ALBUMIN 2.1 g/dL (3.4-5.0); ANION GAP 22.9 mmol/L (8-16); BILIRUBIN - TOTAL 0.73 mg/dL (0.2-1.3); CALCIUM 7.8 mg/dL (8.5-10.1); CREATININE - SERUM 1.5 mg/dL (0.6-1.3); POTASSIUM - SERUM 3.9 mmol/L (3.5-5.1); PROTEIN - SERUM 4.7 g/dL (6.4-8.2)
[2019-03-16 03:50] LABS: APTT < 20.0 SECONDS (22.8-39.4); INR 1.38 (0.85-1.17); PROTIME 16.4 SECONDS (11.6-15.0)
--- NOTE | 2019-03-16 07:00 | NUR ---
SHIFT ASSESSMENT COMPLETED. PT CARE ASSUMED, MONITORS ON AND WORKING, VITALS STABLE, NO SIGNS/SYMPTOMS OF PAIN OR DISCOMFORT NOTED AT THIS TIME, SEE FLOW SHEET FOR FURTHER DETAILS. WILL CONTINUE TO OBSERVE.
--- NOTE | 2019-03-16 07:02 | NUR ---
MERREM INFUSION COMPLETE AT THIS TIME.
--- NOTE | 2019-03-16 07:09 | NUR ---
COLLETTE GUERIN CONTACT INFORMATION [phone]
[2019-03-16] MEDS ORDERED: DONEPEZIL HCL10 MG PO (07:37)
[2019-03-16] MEDS ORDERED: REMERON15 MG PO (07:38)
[2019-03-16] MEDS ORDERED: RISPERDAL1 MG PO (07:40)
[2019-03-16] MEDS ORDERED: CYMBALTA20 MG PO (07:41)
[2019-03-16] MEDS ORDERED: FUROSEMIDE20 MG PO (07:43)
[2019-03-16] MEDS ORDERED: K-TAB10 MEQ PO (07:44)
[2019-03-16] MEDS ORDERED: NEPHROCAPS SOFTG1 MG PO (07:44)
[2019-03-16 10:09] LABS: HEMATOCRIT 27.5 % (36.0-48.0); HEMOGLOBIN 9.3 g/dL (12-16)
--- NOTE | 2019-03-16 16:23 | MORECARE ---
CASE MANAGEMENT DISCHARGE SUMMARY PATIENT: JANICE FAIRCHILD UNIT: [id number] ADM DATE: 03/16/19 AGE: 73 : 46 SEX: F ROOM/BED: D.2302 AUTHOR: HEIDE ACKERMAN PHYSICIAN: REFERRING PHYSICIAN: CATA MELCHOR MD DATE OF SERVICE: 03/16/19 Discharge Plan Patient Name: JANICE FAIRCHILD [facility] [facility] 1945 Planned Disposition: Nursing Facility [facility] Cert Anticipated Discharge Date: Discharge Date: Expected LOS: Initial Reviewer: [email or web address] Initial Review Date: 03/16/2019 Generated: 03/16/19 5:22 pm External Providers External Provider: [facility] Next Contact Date: Service Request Date: Service Type: Resolution: Reviewer: Comments: Patient Name: JANICE FAIRCHILD Page [phone] at 1623 All edits/amendments must be made on the electronic document DICTATION DATE: 03/16/19 162 MEDICARE NURSE: JAY 03/16/19 162 RPT#: [id number] VA DATE: STATUS: ADM IN [facility] [address] [place] [address] END OF REPORT
--- NOTE | 2019-03-16 16:33 | MORECARE ---
CASE MANAGEMENT DISCHARGE SUMMARY PATIENT: JANICE FAIRCHILD UNIT: [id number] ADM DATE: 03/16/19 AGE: 73 : 46 SEX: F ROOM/BED: D.2302 AUTHOR: HEIDE ACKERMAN PHYSICIAN: REFERRING PHYSICIAN: CATA MELCHOR MD DATE OF SERVICE: 03/16/19 Discharge Plan Patient Name: JANICE FAIRCHILD Facility: [facility]:[place] : 1945 Planned Disposition: Nursing Facility [facility] Cert Anticipated Discharge Date: Discharge Date: Expected LOS: Initial Reviewer: [email or web address] Initial Review Date: 03/16/2019 Generated: 03/16/19 5:33 pm DCPIA - Discharge Planning Initial Assessment Updated by [email or web address]: Kavya Lopez on 03/16/19 4:24 pm * Is the patient Alert and Oriented? Yes * PCP ZULY * Preadmission Environment Home with Family * ADLs Partial Dependent * Partial ADLs (Assistance needed) Bathing Dressing Eating Medication Management Toileting Transfers * List name and contact numbers for known caregivers / representatives who currently or will assist patient after discharge: Chelsie Pimentel - daughter - [phone], * Verbal permission to speak to the caregivers and representatives has been obtained from the patient. Yes * Community resources currently utilized None * Additional services required to return to the preadmission environment? No * Can the patient safely return to the preadmission environment? Yes * Has this patient been hospitalized within the prior 30 days at any hospital? No Last DP export: 03/16/19 3:23 p Patient Name: JANICE FAIRCHILD Page [id number] at 1633 All edits/amendments must be made on the electronic document DICTATION DATE: 03/16/191631 TECHNICAL SYSTEM ANALYST: JAY 03/16/191631 RPT#: [id number] DC DATE: STATUS: ADM IN [facility] [address] [place] [address] END OF REPORT
--- NOTE | 2019-03-16 17:06 | MORECARE ---
CASE MANAGEMENT DISCHARGE SUMMARY PATIENT: JANICE FAIRCHILD UNIT: [id number] ADM DATE: 03/16/19 AGE: 73 : 46 SEX: F ROOM/BED: D.2302 AUTHOR: TYRON,DOC PHYSICIAN: REFERRING PHYSICIAN: CATA MELCHOR MD DATE OF SERVICE: 03/16/19 Discharge Plan Patient Name: JANICE FAIRCHILD Facility: [facility]:[place] : 1945 Planned Disposition: Nursing Facility [facility] Cert Anticipated Discharge Date: Discharge Date: Expected LOS: Initial Reviewer: [email or web address] Initial Review Date: 03/16/2019 Generated: 03/16/19 6:05 pm DCP- Discharge Planning Updated by [email or web address]: Kavya Lopez on 03/16/19 3:[address] Patient Name: JANICE FAIRCHILD Admission Status: ER Accout number: [id number] Admission Date: 03-16-2019 : 1945 Admission Diagnosis: Attending: CATA MELCHOR Current LOS: 1 Anticipated DC Date: Planned Disposition: Nursing Facility [facility] Cert Primary Insurance: MEDICARE A & B Discharge Planning Comments: CM met with patient's daughter Chelsie Pimentel [phone]. Chelsie stated that patient was in [facility] in Memory Care Unit until the last few weeks. Chelsie stated that she has been caring for her mother at home for the last 3 weeks. Chelsie states that she has realized that she is incapable of being able to care for her mother at home. Chelsie states that she does not want patient to go back to [facility]. Chelsie states that she has spoken to Teresa @ [facility] and would like for patient to go there but Teresa stated they don't currently have a memory care bed availability. [facility] signed for [facility] as 1st choice and 2nd choice is a facility locally with memory care unit. Chelsie stated that her mother got out of her home and was missing for 3 hours before police found her at [facility] on bench. Patient will definitely need to be in a facility that has a locked unit. CM contacted [facility], [facility], [facility] none have memory care units. [facility] will have a memory care unit opening Angelina 1st. CM contacted [facility] ([facility] [phone]) he stated they did have a memory care unit. CM sent referral to [facility]. CM will continue to follow and assist as needed with discharge planning / needs. Business Planning Manager: Kavya Lopez DCPIA - Discharge Planning Initial Assessment Updated by [email or web address]: Kavya Lopez on 03/16/19 4:24 pm * Is the patient Alert and Oriented? Yes * PCP ZULY * Preadmission Environment Home with Family * ADLs Partial Dependent * Partial ADLs (Assistance needed) Bathing Dressing Eating Medication Management Toileting Transfers * List name and contact numbers for known caregivers / representatives who currently or will assist patient after discharge: Chelsie Pimentel - daughter - [phone], * Verbal permission to speak to the caregivers and representatives has been obtained from the patient. Yes * Community resources currently utilized None * Additional services required to return to the preadmission environment? No * Can the patient safely return to the preadmission environment? Yes * Has this patient been hospitalized within the prior 30 days at any hospital? No Last DP export: 03/16/19 3:33 p Patient Name: JANICE FAIRCHILD Page [phone] at 1706 All edits/amendments must be made on the electronic document DICTATION DATE: 03/16/191704 PHLEBOTOMIST: JAY 03/16/191704 RPT#: [id number] DC DATE: STATUS: ADM IN [facility] [address] [place] [address] END OF REPORT
--- NOTE | 2019-03-16 20:18 | NUR ---
11 LAPS IN AND ON ABDOMEN WITH IOBAN COVER, AMIE.
--- NOTE | 2019-03-16 20:19 | NUR ---
COUNTS NOT DONE EMERGENCY CASE, NO X-RAY AFTER PROCEDURE DUE TO LEFT IN LAPS IN ABDOMEN, PER AMIE PARK.
--- NOTE | 2019-03-16 20:25 | NUR ---
FEMORAL ARTERIAL LINE PLACED PER DR GUARDADO, ARTERIAL LINE PLACED PER AMIE VASQUEZ.
--- NOTE | 2019-03-16 20:28 | NUR ---
1750 PATIENT TRANSFERED FROM ICU IN CODE PROCESS, IN TO OR 5 AND CONTINUED CODE, WITH CPR, AMIE.
--- NOTE | 2019-03-16 21:00 | NUR ---
REPORT RECEIVED CARE ASSUMED ASSESSMENT DONE SEE FLOW SHEET OR STAFF AT BEDSIDE. ACTIVE WARMING WITH BEAR ANJELGGER BEGINING. DR GUARDADO AT BEDSIDE WILL COTNINUE TO MONITOR.
[2019-03-16 21:47] LABS: BASOPHILS 0.3 % (0-2); EOSINOPHILS 0.6 % (0-7); HEMOGLOBIN 14.1 g/dL (12-16); IMMATURE GRANULOCYTES 0.9 % (0-5); LYMPHOCYTES 14.6 % (15-50); MCH 29.4 pg (26.0-34.0); MCHC 34.4 g/dL (31.0-37.0); MCV 85.6 fL (80.0-100.0); MEAN PLATELET VOLUME 9.6 fL (7.4-10.4); MONOCYTES 10.2 % (2-11); NEUTROPHILS 73.4 % (40-80); PLATELET COUNT 206 10x3/uL (130-400); RBC 4.79 10x6/uL (4.00-5.40); RDW 14.4 % (11.5-14.5); WBC 3.4 10x3/uL (4.8-10.8)
[2019-03-16 22:00] LABS: BILIRUBIN - TOTAL 1.03 mg/dL (0.2-1.3); CALCIUM 7.6 mg/dL (8.5-10.1); MAGNESIUM - SERUM 1.3 mg/dL (1.8-2.4); PROTEIN - SERUM 4.3 g/dL (6.4-8.2)
[2019-03-16 22:01] LABS: CARBON DIOXIDE 28.6 mmol/L (21.0-32.0); CREATININE - SERUM 0.9 mg/dL (0.6-1.3)
[2019-03-16 22:02] LABS: POTASSIUM - SERUM 2.6 mmol/L (3.5-5.1)
--- NOTE | 2019-03-16 22:36 | NUR ---
DR CHIP SOUSA.
--- NOTE | 2019-03-16 22:50 | NUR ---
DR ROBERTS INFORMED OF PT STATUS. ORDERS RECEIVED VENT SETTIGNS RECEIVED WILL CONTINUE TO MONITOR.
[2019-03-17] VITALS (25 sets, daily range): BP systolic 95–158; BP diastolic 49–85
[2019-03-17 00:15] LABS: APPEARANCE CLEAR (CLEAR); BILIRUBIN NEGATIVE (NEGATIVE); COLOR YELLOW (YELLOW); GLUCOSE NEGATIVE (NEGATIVE); KETONE NEGATIVE (NEGATIVE); NITRITE NEGATIVE (NEGATIVE); PROTEIN NEGATIVE (NEGATIVE); SPECIFIC GRAVITY 1.005 (1.005-1.020); UROBILINOGEN NORMAL (NORMAL)
[2019-03-17 00:17] LABS: EPITHELIAL CELLS 0-5 /hpf (0-5); RED CELLS - URINE 0-5 /hpf (0-5); WHITE CELLS - URINE NSEEN /hpf (0-5)
[2019-03-17 00:18] LABS: BACTERIA NONE SEEN /hpf (NONE SEEN)
--- NOTE | 2019-03-17 00:44 | NUR ---
RT AT BEDSIDE ORAL CARE PROVIDED. NO GAG REFLEX NOTED. PT GRIMACES TO PAINFUL STIMULUS. WILL CONTINUE TO MONITOR.
--- NOTE | 2019-03-17 04:50 | NUR ---
0300 REASSESSMENT DONE SEE FLOW SHEET VSS NO SIGNS OF ACUTE DISTRESS NOTED WILL CONTINUE TO MONITOR. 0450 IO COLLECTED DAILY WEIGHT COLLECTED WILL CONTINUE TO MONITOR.
[2019-03-17 05:00] LABS: INR 1.31 (0.85-1.17); PROTIME 15.7 SECONDS (11.6-15.0)
[2019-03-17 05:06] LABS: HEMATOCRIT 45.6 % (36.0-48.0); HEMOGLOBIN 16.6 g/dL (12-16); MCH 29.6 pg (26.0-34.0); MCHC 36.4 g/dL (31.0-37.0); MEAN PLATELET VOLUME 10.1 fL (7.4-10.4); RDW 14.7 % (11.5-14.5)
[2019-03-17 05:10] LABS: MCV 81.4 fL (80.0-100.0); PLATELET COUNT 258 10x3/uL (130-400); WBC 2.4 10x3/uL (4.8-10.8)
[2019-03-17 05:11] LABS: BILIRUBIN - TOTAL 2.26 mg/dL (0.2-1.3); CALCIUM 7.7 mg/dL (8.5-10.1); CARBON DIOXIDE 28.7 mmol/L (21.0-32.0); CREATININE - SERUM 0.8 mg/dL (0.6-1.3); PROTEIN - SERUM 4.5 g/dL (6.4-8.2)
[2019-03-17 05:15] LABS: ANION GAP 10.7 mmol/L (8-16); MAGNESIUM - SERUM 1.8 mg/dL (1.8-2.4); POTASSIUM - SERUM 3.4 mmol/L (3.5-5.1)
[2019-03-17 05:19] LABS: PHOSPHOROUS 1.2 mg/dL (2.5-4.9); TROPONIN-I 0.269 ng/mL (0.000-0.060)
[2019-03-17 06:02] LABS: LYMPHOCYTES 16 % (15-50); MONOCYTES 16 % (2-11); NEUTROPHILS 51 % (40-80); PLATELET ESTIMATE NORMAL
--- NOTE | 2019-03-17 07:00 | NUR ---
PATIENT FLAT IN BED ON BACK. ABD OPEN LARGE TEGRADERM WITH AIR AND BLOOD VISABLE. GRIMACES TO STERNAL RUB. MOVES EXTREMITIES WHEN STIMULATED. RIJ CENTRAL LINE TO CVP MONITOR GOOD WAVE FORM. RIGHT GROIN JARED INTACT GOOD WAVE FORM. MARIA CATH PATENT. ETT SECURE TO VENT BILATERAL BREATH SOUNDS EQUAL. SCD ON LOWER LEGS. MONITOR SR. OPENS EYES TO STIMULATION.
--- NOTE | 2019-03-17 08:46 | NUR ---
DR. ROBERTS HERE. PATIENT OPENS EYES AND MOVES WHEN TOUCH. ORDERED TO START FENTANYL IMMEDIATELY AT 25 MCG/HOUR SET RATE FOR PAIN CONTROL. STATES TO CONTINUE DIPIRIVAN AT SAME RATE. BICARB GTT STOPPED PER DR. ROBERTS ORDERS.
[2019-03-17 09:19] LABS: HEMATOCRIT 43.5 % (36.0-48.0); HEMOGLOBIN 15.9 g/dL (12-16)
--- NOTE | 2019-03-17 10:00 | NUR ---
HICLENS BATH GIVEN ON TOP PART OF BODY. CLEAN PADS PLACED AROUND PATIENT. MARIA CATH CARE DONE. PATIENT DID START MOVING AROUND. QUIT WITH GENTLY TALKING TO HER. TOLERATED WELL. JARED SECURE RIGHT GROIN. TRIALYSIS CATH CALL PORTS IN USE. CVP LINE RIJ GOOD WAVE FORM. DIPRIVAN CONTINUES AT 30 MCG. FENTANYL AT 25 MCG. PROTONIX 10 MG HOUR.
--- NOTE | 2019-03-17 10:30 | NUR ---
DAUGHTER CALLED ON PHONE UPDATE GIVEN. DR. MELCHOR HERE UPDATE GIVEN
--- NOTE | 2019-03-17 12:00 | NUR ---
NO CHANGE. RESTING COMFORTABLY. WILL WAKE UP EASILY AND RETURN TO SLEEP WITH CALM TALKING TO PATIENT. RIGHT GROIN DRESSING DRY AND INTACT. GOOD WAVE FORM JARED. ABD TEGRADERM INTACT.
--- NOTE | 2019-03-17 13:00 | NUR ---
no changes resting comfortably. vs stable.
--- NOTE | 2019-03-17 13:15 | NUR ---
PATIENT RESTING WELL. NO DISTRESS
[2019-03-17 14:13] LABS: HEMATOCRIT 43.9 % (36.0-48.0)
--- NOTE | 2019-03-17 15:00 | NUR ---
little more congestion in lungs. small amount suction. bowel sounds audible. good urine output. no distress. flat in bed. resting comfortably.
--- NOTE | 2019-03-17 17:00 | NUR ---
right groin site without redness or drainage. good wave form catrachito. dipirvan still at 30 mcg, fentanyl at 25 mcg. d51/2 at 50 ml hour. protonix at 10 mg hour. bowman cath patent. resting well. dr. soriano here. grandchildren called for update on patient. scd lower legs.
[2019-03-17 20:33] LABS: HEMATOCRIT 43.9 % (36.0-48.0); HEMOGLOBIN 15.8 g/dL (12-16)
[2019-03-18] VITALS (23 sets, daily range): BP systolic 91–123; BP diastolic 44–64
--- NOTE | 2019-03-18 05:00 | NUR ---
1900 REPORT RECEIVED CARE ASSUMED ASSESSMENT DONE SEE FLOW SHEET VSS. 2100 MEDS GIVEN PER MAR. VSS NO SIGNS OF ACUTE DISTRESS NOTED. 2300 REASSESSMENT DONE SEE FLOW SHEET VSS. 0100 PT CONTINUALLY MONITORED. ROOM FREED OF CLUTTER. 0300 REASSESSMENT DONE SEE FLOW SHEET VSS. 0500 IO COLLECTED DAILY WEIGHT COLLECTED VSS
[2019-03-18 05:25] LABS: BASOPHILS 0.2 % (0-2); EOSINOPHILS 1.6 % (0-7); HEMATOCRIT 43.6 % (36.0-48.0); HEMOGLOBIN 15.3 g/dL (12-16); IMMATURE GRANULOCYTES 4.2 % (0-5); LYMPHOCYTES 8.4 % (15-50); MCH 29.7 pg (26.0-34.0); MCHC 35.1 g/dL (31.0-37.0); MEAN PLATELET VOLUME 10.8 fL (7.4-10.4); NEUTROPHILS 79.6 % (40-80); PLATELET COUNT 224 10x3/uL (130-400); RBC 5.16 10x6/uL (4.00-5.40)
[2019-03-18 05:26] LABS: MCV 84.5 fL (80.0-100.0); WBC 13.1 10x3/uL (4.8-10.8)
[2019-03-18 05:34] LABS: ALBUMIN 1.6 g/dL (3.4-5.0); BILIRUBIN - TOTAL 1.88 mg/dL (0.2-1.3); CALCIUM 7.6 mg/dL (8.5-10.1); CARBON DIOXIDE 28.4 mmol/L (21.0-32.0); CREATININE - SERUM 0.9 mg/dL (0.6-1.3); POTASSIUM - SERUM 3.7 mmol/L (3.5-5.1); PROTEIN - SERUM 4.6 g/dL (6.4-8.2)
[2019-03-18 05:37] LABS: ANION GAP 12.3 mmol/L (8-16)
--- NOTE | 2019-03-18 07:00 | NUR ---
RECEIVED REPORT FROM GIGI CASTRO. PT RESTING IN BED MILDLY SEDATED ON VENTILATOR PER ORDERED SETTINGS IN SUPINE POSITION. OPENS EYES SPONTANEOUSLY. OPEN ABDOMENAL INCISION WITH COVERED WITH LARGE CLEAR DRESSING. DRESSING IS FILLED UP WITH BLOOD. OGT TO LIS SUCTIONING BLOOD. R GROIN TRIALYSIS CATHETER AND RIGHT GROIN ART LINE. GOOD WAVE FORM. L IJ INTACT. MARIA DRAINING JEISON URINE. SCD'S INTACT. VSS. WILL CONTINUE TO MONITOR.
--- NOTE | 2019-03-18 09:00 | NUR ---
CALLED DR. GUARDADO TO INFORM ABOUT ABDOMINAL DRESSING SWELLING UP WITH BLOOD AND MY CONCERN THAT IT WILL POP. INSTRUCTED TO JUST ENSURE SHE IS STILL AND NOT TO MOVE HER. HE WILL BY COMING TO GET HER FOR SURGERY IN 2 TO 3 HOURS.
--- NOTE | 2019-03-18 11:00 | NUR ---
PT RESTING IN BED SEDATED ON VENT. VSS. DRESSING TO ABDOMEN STILL INTACT. WILL CONTINUE TO MONITOR
--- NOTE | 2019-03-18 12:01 | NUR ---
NUTRITION F/U PT SEDATED ON VENT. NO CURRENT NUTRITION SUPPORT. WILL CONTINUE TO MONITOR PT PROGRESS. RECOMMEND NUTRITION SUPPORT WHEN MEDICALLY FEASIBLE. RD FOLLOWING
--- NOTE | 2019-03-18 13:00 | NUR ---
DR. GUARDADO CAME TO SEE PATIENTS ABDOMINAL DRESSING TO DETERMINE IF SURGERY NEEDED TO TAKE PLACE NOW OR IN COUPLE OF HOURS. DECIDED IT WOULD BE OKAY TO WAIT ANOTHER COUPLE OF HOURS GIVEN NEED FOR ANOTHER CRITICAL SURGERY AT THIS TIME.
--- NOTE | 2019-03-18 15:00 | NUR ---
PT STABLE. STILL CLOSELY MONITORING
--- NOTE | 2019-03-18 16:43 | NUR ---
PAGED DR. GUARDADO ABDOMINAL DRESSING IS BEGINNING TO LEAK FROM BOTTOM AND SEEMS TO BE WEAPING WELL.
--- NOTE | 2019-03-18 16:59 | NUR ---
SPOKE TO DR. GUARDADO ON PHONE ABOUT INCREASED DRAINAGE. ORDERED CBC AND STATED HE IS JUST WAITING ON AN OR ROOM TO DO THE SURGERY.
[2019-03-18 17:25] LABS: HEMATOCRIT 36.9 % (36.0-48.0); HEMOGLOBIN 12.7 g/dL (12-16); MCH 29.8 pg (26.0-34.0); MCHC 34.4 g/dL (31.0-37.0); MEAN PLATELET VOLUME 10.8 fL (7.4-10.4); RBC 4.26 10x6/uL (4.00-5.40); RDW 16.2 % (11.5-14.5); WBC 14.1 10x3/uL (4.8-10.8)
[2019-03-18 17:26] LABS: MCV 86.6 fL (80.0-100.0); PLATELET COUNT 163 10x3/uL (130-400)
[2019-03-18 17:51] LABS: LYMPHOCYTES 4 % (15-50); MONOCYTES 8 % (2-11); NEUTROPHILS 56 % (40-80); PLATELET ESTIMATE NORMAL
--- NOTE | 2019-03-18 18:00 | NUR ---
REINCORCED BOTTOM PORTION OF DRESSING WITH TEGADERM.
--- NOTE | 2019-03-18 19:20 | NUR ---
RECEIVED CARE OF PT, ASSESSMENT PER FLOWSHEET. NGT TO LIWS WITH DARK RED DRAINAGE IN TUBING, INTUBATED AND SEDATED ON VENT-60% FIO2, IV DRIPS PER FLOWSHEET, MARIA CATH PATENT, ABD DRESSING WITH DARK GREEN FLUID NOTED UNDER IODOFORM BUT DRESSING REMAINS INTACT. VSS, WILL MONITOR.
--- NOTE | 2019-03-18 19:44 | MORECARE ---
CASE MANAGEMENT DISCHARGE SUMMARY PATIENT: JANICE FAIRCHILD UNIT: [id number] ADM DATE: 03/16/19 AGE: 73 : 47 SEX: F ROOM/BED: D.2305 AUTHOR: TYRON,DOC PHYSICIAN: REFERRING PHYSICIAN: CATA MELCHOR MD DATE OF SERVICE: 03/18/19 Discharge Plan Patient Name: JANICE FAIRCHILD Facility: [facility]:[place] : 1945 Planned Disposition: Nursing Facility [facility] Cert Anticipated Discharge Date: Discharge Date: Expected LOS: Initial Reviewer: [email or web address] Initial Review Date: 03/16/2019 Generated: 03/18/19 8:44 pm Comments DCP- Discharge Planning Updated by [email or web address]: Kavya Lopez on 03/18/19 6:[address] CM has spoke with daughter Chelsie today. Chelsie is wanting patient to be placed in [facility] upon discharge. Chelsie doesn't realize the severity of patients condition. CM explained that patient is to have surgery today and again on Thursday. Chelsie states that her mother is very strong willed. CM explained that when patient was closer to discharge then CM would send a referral to [facility]. CM will continue to follow and assist as needed with discharge planning / needs. DCP- Discharge Planning Updated by [email or web address]: Kavya Lopez on 03/16/19 3:[address] Patient Name: JANICE FAIRCHILD Admission Status: ER Accout number: [id number] Admission Date: 03-16-2019 : 1945 Admission Diagnosis: Attending: CATA MELCHOR Current LOS: 1 Anticipated DC Date: Planned Disposition: Nursing Facility [facility] Cert Primary Insurance: MEDICARE A & B Discharge Planning Comments: CM met with patient's daughter Chelsie Pimentel [phone]. Chelsie stated that patient was in [facility] in Memory Care Unit until the last few weeks. Chelsie stated that she has been caring for her mother at home for the last 3 weeks. Chelsie states that she has realized that she is incapable of being able to care for her mother at home. Chelsie states that she does not want patient to go back to [facility]. Chelsie states that she has spoken to [facility] and would like for patient to go there but [facility] stated they don't currently have a memory care bed availability. CRISTIANO signed for [facility] as 1st choice and 2nd choice is a facility locally with memory care unit. Chelsie stated that her mother got out of her home and was missing for 3 hours before police found her at [facility] on bench. Patient will definitely need to be in a facility that has a locked unit. CM contacted [facility], [facility], [facility] none have memory care units. [facility] will have a memory care unit opening March 28. CM contacted [facility] ([facility] [phone]) he stated they did have a memory care unit. CM sent referral to [facility]. CM will continue to follow and assist as needed with discharge planning / needs. Oversize Load Pilot Escort: Kavya Lopez DCPIA - Discharge Planning Initial Assessment Updated by [email or web address]: Kavya Lopez on 03/16/19 4:24 pm * Is the patient Alert and Oriented? Yes * PCP [facility] * Preadmission Environment Home with Family * ADLs Partial Dependent * Partial ADLs (Assistance needed) Bathing Dressing Eating Medication Management Toileting Transfers * List name and contact numbers for known caregivers / representatives who currently or will assist patient after discharge: Chelsie Pimentel - daughter - [phone], * Verbal permission to speak to the caregivers and representatives has been obtained from the patient. Yes * Community resources currently utilized None * Additional services required to return to the preadmission environment? No * Can the patient safely return to the preadmission environment? Yes * Has this patient been hospitalized within the prior 30 days at any hospital? No Last DP export: 03/16/19 4:05 p Patient Name: JANICE FAIRCHILD Page [id number] at 1943 All edits/amendments must be made on the electronic document DICTATION DATE: 03/18/191943 COAGULATING BATH MIXER: JAY 03/18/191943 RPT#: [id number] DC DATE: STATUS: ADM IN [facility] [address] [place] [address] END OF REPORT
--- NOTE | 2019-03-18 21:18 | NUR ---
DR ROBERTS CALLED TO CHECK ON PT, UPDATE GIVEN, NO ORDERS RECEIVED.
--- NOTE | 2019-03-18 22:41 | NUR ---
PT TO OR ACCOMPANIED BY OR STAFF.
[2019-03-19] VITALS (24 sets, daily range): BP systolic 88–138; BP diastolic 41–89
--- NOTE | 2019-03-19 00:25 | NUR ---
PT BACK TO ROOM ACCOMPANIED BY ANESTHESIA AND OR STAFF, ICU MONITORS RE-ESTABLISHED, ABDOMINAL DRESSING CDI, VSS, WILL MONITOR.
--- NOTE | 2019-03-19 00:50 | NUR ---
ATTEMPTED TO CALL FAMILY TO UPDATE REGARDING PT SURGERY PER REQUEST, MAILBOX FULL AT [phone]. LEFT MESSAGE AT [facility] # THAT WE HAVE ON FILE.
--- NOTE | 2019-03-19 01:43 | NUR ---
PT DAUGHTER RETURNED PHONE CALL, PASSWORD PROVIDED, UPDATE GIVEN AND ALL QUESTIONS ANSWERED.
--- NOTE | 2019-03-19 03:30 | NUR ---
REASSESSMENT PER FLOWSHEET, NO ACUTE CHANGES NOTED AT THIS TIME, VSS, ABD DRESSING REMAINS CDI, CONT POC.
[2019-03-19 04:58] LABS: BASOPHILS 0.1 % (0-2); EOSINOPHILS 0.1 % (0-7); HEMATOCRIT 39.5 % (36.0-48.0); HEMOGLOBIN 13.2 g/dL (12-16); IMMATURE GRANULOCYTES 5.1 % (0-5); LYMPHOCYTES 5.1 % (15-50); MCHC 33.4 g/dL (31.0-37.0); MCV 86.8 fL (80.0-100.0); MEAN PLATELET VOLUME 10.8 fL (7.4-10.4); MONOCYTES 4.7 % (2-11); NEUTROPHILS 84.9 % (40-80); RBC 4.55 10x6/uL (4.00-5.40); RDW 16.1 % (11.5-14.5); WBC 13.5 10x3/uL (4.8-10.8)
[2019-03-19 05:02] LABS: PLATELET COUNT 129 10x3/uL (130-400)
[2019-03-19 05:09] LABS: ALBUMIN 1.5 g/dL (3.4-5.0); ANION GAP 9.8 mmol/L (8-16); BILIRUBIN - TOTAL 2.02 mg/dL (0.2-1.3); CALCIUM 7.5 mg/dL (8.5-10.1); CARBON DIOXIDE 26.9 mmol/L (21.0-32.0); CREATININE - SERUM 0.8 mg/dL (0.6-1.3); POTASSIUM - SERUM 3.7 mmol/L (3.5-5.1); PROTEIN - SERUM 4.3 g/dL (6.4-8.2)
--- NOTE | 2019-03-19 05:48 | NUR ---
AM LABS REVIEWED, NO VISITORS PRESENT AT THIS TIME, NOTHING TO TREAT PER ELECTROLYTE PROTOCOL. VSS
--- NOTE | 2019-03-19 08:09 | NUR ---
MOUTH CARE COMPLETE, VSS.
--- NOTE | 2019-03-19 08:52 | NUR ---
DR ROBERTS HERE ON ROUNDS.
--- NOTE | 2019-03-19 19:45 | NUR ---
REPORT RECEIVED INITIAL ASSESSMENT COMPLETE. PT SEDATED WITH DIPRIVAN AND FENTANYL FOR PAIN. SEE ASSESSMENT FLOWSHEET LARGE ABD DRESSING TRANSPARENT YELLOW SURGERY DRESSING DUE TO ABD OPEN POSSIBLE OR WASHOUT TOMORROW. CM ALARMS ON AND AUDIBLE. VSS AT THIS TIME. DARK BROWN DRAINAGE LEAKING FROM BOTTOM OF DRESSING REINFORCED WITH MEDIPORE TAPE AND GAUZE, DID NOT WANT TO OPEN THE DRESSING ANYMORE SO JUST REINFORCED
--- NOTE | 2019-03-19 21:00 | NUR ---
ORAL SUCTION AND ORAL CARE CPOC VSS
--- NOTE | 2019-03-19 23:00 | NUR ---
REASSESSMENT MADE NO CHANGES REPOSITIONED SLIGHTLY CPOC VSS NO CHANGES IN GTTS
[2019-03-20] VITALS (24 sets, daily range): BP systolic 87–144; BP diastolic 40–70
--- NOTE | 2019-03-20 03:00 | NUR ---
REASSESSMENT MADE NO CHANGES SEE FLOWSHEETS. CPOC
--- NOTE | 2019-03-20 06:00 | NUR ---
CHANGED UNDERPADS FROM LEAKING ABD WOUND DRAINING DARK BROWN DRAINAGE FROM LOWER PORTION OF ABD WOUND AGAIN REINFORCED. MEPILEX BORDER TO SACRUM SKIN INTACT NO BREAKDOWN
[2019-03-20 06:44] LABS: HEMATOCRIT 33.4 % (36.0-48.0); MCH 29.3 pg (26.0-34.0); MCHC 32.9 g/dL (31.0-37.0); MEAN PLATELET VOLUME 10.8 fL (7.4-10.4); RBC 3.76 10x6/uL (4.00-5.40); RDW 16.4 % (11.5-14.5); WBC 10.2 10x3/uL (4.8-10.8)
[2019-03-20 06:47] LABS: MCV 88.8 fL (80.0-100.0); PLATELET COUNT 92 10x3/uL (130-400)
[2019-03-20 06:49] LABS: ALBUMIN 1.4 g/dL (3.4-5.0); ALKALINE PHOSPHATASE 52 U/L (46-116); BILIRUBIN - TOTAL 2.53 mg/dL (0.2-1.3); CALC OSMOLALITY 293 mosm/kg (275-300); CALCIUM 7.6 mg/dL (8.5-10.1); CARBON DIOXIDE 26.3 mmol/L (21.0-32.0); CHLORIDE - SERUM 113 mmol/L (98-107); CREATININE - SERUM 0.7 mg/dL (0.6-1.3); GLUCOSE 107 mg/dL (74-106); POTASSIUM - SERUM 3.7 mmol/L (3.5-5.1); PROTEIN - SERUM 4.1 g/dL (6.4-8.2); SODIUM 145 mmol/L (136-145); UREA NITROGEN 27 mg/dL (7-18); eGFR NON AFRICAN AMERICAN 87 mL/min (90-120)
[2019-03-20 06:51] LABS: ALT (SGPT) 44 U/L (10-68)
[2019-03-20 07:28] LABS: EOSINOPHILS 3 % (0-7); LYMPHOCYTES 7 % (15-50); MONOCYTES 8 % (2-11); NEUTROPHILS 67 % (40-80); PLATELET ESTIMATE DECREASED
--- NOTE | 2019-03-20 17:01 | NUR ---
DAUGHTER AT BS, BIZARRE BEHAVIOR NOTED. POC UPDATE GIVEN.
--- NOTE | 2019-03-20 19:30 | NUR ---
REPORT RECEIVED INITIAL ASSESSMENT PER FLOWSHEET. CM READING SR ALARMS ON AND AUDIBLE. ABD INCISION OPEN FROM SURGERY COVERED WITH TRANSPARENT YELLOW SURGERY DRESSING LEAKING AROUND LOWER PORTION REINFORCED WITH GAUZE AND TRANSPARENT OPSITE. IV DRIPS PER FLOWSHEET WILL CONTINUE TO MONITOR
--- NOTE | 2019-03-20 21:00 | NUR ---
COMPLETE CHG BATH FOR OR TOMORROW.
--- NOTE | 2019-03-20 23:00 | NUR ---
REASSESSMENT MADE NO CHANGES SUCTIONED ORALLY AND VIA ORAL ETT BROWN SECRETIONS CPOC
[2019-03-21] VITALS (21 sets, daily range): BP systolic 89–165; BP diastolic 38–63
--- NOTE | 2019-03-21 01:30 | NUR ---
LOWER PORTION OF ABD DRESSING LEAKING BROWN FLUID COMPLETE BATH CHG LINEN CHANGE AND REINFORCED DRESSING
--- NOTE | 2019-03-21 03:00 | NUR ---
REASSESSMENT MADE PT HEART RATE DOES DECREASE DOWN TO MID 60'S. DIPRIVAN AND FENTANYL CONTINUE. REPOSITIONED FOR COMFORT
[2019-03-21 04:57] LABS: BASOPHILS 0.6 % (0-2); EOSINOPHILS 1.5 % (0-7); HEMATOCRIT 32.8 % (36.0-48.0); HEMOGLOBIN 10.5 g/dL (12-16); IMMATURE GRANULOCYTES 17.1 % (0-5); LYMPHOCYTES 7.8 % (15-50); MCH 29.1 pg (26.0-34.0); MCV 90.9 fL (80.0-100.0); MEAN PLATELET VOLUME 10.8 fL (7.4-10.4); MONOCYTES 7.7 % (2-11); NEUTROPHILS 65.3 % (40-80); PLATELET COUNT 94 10x3/uL (130-400); RBC 3.61 10x6/uL (4.00-5.40); RDW 16.4 % (11.5-14.5)
--- NOTE | 2019-03-21 05:00 | NUR ---
PT REPOSITIONED Q2 HOURS NOT FULL TURN ON SIDE DUE TO OPEN ABD WOUND BUT TILT FOR PRESSURE RELIEF. MEPILEX INTACT TO SACRUM
[2019-03-21 05:12] LABS: ALBUMIN 1.4 g/dL (3.4-5.0); ALKALINE PHOSPHATASE 48 U/L (46-116); BILIRUBIN - TOTAL 2.99 mg/dL (0.2-1.3); CALC OSMOLALITY 288 mosm/kg (275-300); CALCIUM 7.4 mg/dL (8.5-10.1); CARBON DIOXIDE 25.7 mmol/L (21.0-32.0); CHLORIDE - SERUM 110 mmol/L (98-107); CREATININE - SERUM 0.6 mg/dL (0.6-1.3); GLUCOSE 103 mg/dL (74-106); POTASSIUM - SERUM 3.7 mmol/L (3.5-5.1); PROTEIN - SERUM 4.2 g/dL (6.4-8.2); SODIUM 143 mmol/L (136-145); UREA NITROGEN 24 mg/dL (7-18); eGFR NON AFRICAN AMERICAN > 90 mL/min (90-120)
[2019-03-21 05:15] LABS: ALT (SGPT) 28 U/L (10-68)
--- NOTE | 2019-03-21 07:00 | NUR ---
RECEIVED REPORT. PT RESTING IN BED SEDATED ON VENTILATOR PER ORDERED SETTINGS. VSS. CVL TO RIGHT GROIN AND RIGHT IJ. ART LINE TO RIGHT GROIN WITH GOOD WAVE FORM. OPEN ABDOMINAL INCISION PACKED WITH GAUZE AND DRESSED. WILL CONTINUE TO MONITOR
--- NOTE | 2019-03-21 09:00 | NUR ---
SUCTIONED BEIGE MUCOUS FROM PATIENTS ETT. VSS. SEDATED ON VENT
--- NOTE | 2019-03-21 09:05 | NUR ---
Nutrition follow-up: Pt NPO ProcalAmine PPN infusing @ 50 ml/hr Propofol, Fentanyl for sedation Labs reviewed Wt: 160# PEG tube placed during surgery Going for surgery today Open abdominal wound RDN following.
--- NOTE | 2019-03-21 11:00 | NUR ---
PREOPPED PATIENT PER ORDERS. VSS. SEDATED ON VENT.
--- NOTE | 2019-03-21 12:11 | NUR ---
ADMINISTERED PRN TYLENOL SUPPOSITORY FOR FEVER 101.2
--- NOTE | 2019-03-21 13:40 | NUR ---
PATIENT TAKEN TO OR AT THIS TIME BY ANESTHESIA TEAM.
--- NOTE | 2019-03-21 16:05 | NUR ---
PATINE LEFT ARM ABOVE ELBOW HAS SHINY SKIN TEAR. NOTED WHEN PICKED HER UP FROM ICU. KD
--- NOTE | 2019-03-21 16:38 | NUR ---
PT RETURNED FROM OR AT THIS TIME. BP STABLE. NSR. WILL CHECK FOR ORDERS AND CONTINUE TO MONITOR
--- NOTE | 2019-03-21 17:23 | NUR ---
PATIENT CAME BACK FROM SURGERY WITH ALL SAME LINES INCLUDING ART LINE, NURSE HOOKED UP ALL PREVIOUS IV FLUIDS AND MEDS TO RIGHT GROIN TRIALYSIS CATH. ART LINE AND CVP RECONNECTED. BOTH APPEAR ACCURATE. WOUND VAC TO ABDOMINAL INCISION. BILATERAL DRAINS AND LEFT ABDOMINAL MIRELLA DRAIN ALL DRAINING SEROSANGUINEOUS FLUID. VSS. SEDATED ON VENTILATOR.
--- NOTE | 2019-03-21 19:00 | NUR ---
REPORT RECEIVED, CARE ASSUMED. PT IS IN BED INTUBATED AND SEDATED. INITIAL ASSESSMENT COMPLETED, SEE FLOWSHEET FOR DETAILS. PT REPOSITIONED FOR COMFORT. ORAL CARE PERFORMED. NO SIGNS OF ACUTE DISTRESS NOTED. WILL CONTINUE TO MONITOR.
--- NOTE | 2019-03-21 21:00 | NUR ---
PT IS LAYING IN BED INTUBATED AND SEDATED AT THIS TIME. DRAINS ARE BEING EMPTYED NEEDED PER ORDERS FROM DR GUARDADO. G TUBE HOOKED TO GRAVITY DRAINAGE PER ORDERS. PT REPOSITIONED FOR COMFORT. ORAL CARE PERFORMED. NO SIGNS OF ACUTE DISTRESS. WILL CONTINUE TO MONITOR.
--- NOTE | 2019-03-21 23:00 | NUR ---
REASSESSMENT COMPLETED, SEE FLOWSHEET FOR DETAILS. PT IS IN BED INTUBATED AND SEDATED. PT REPOSITIONED FOR COMFORT. ORAL CARE PERFORMED. PT'S DRAINS ARE BEING EMPTYED NEEDED PER ORDERS FROM DR GUARDADO. NO SIGNS OF ACUTE DISTRESS NOTED. WILL CONTINUE TO MONITOR.
[2019-03-22] VITALS (24 sets, daily range): BP systolic 16–149; BP diastolic 36–68
--- NOTE | 2019-03-22 01:00 | NUR ---
PT IS IN BED INTUBATED AND SEDATED. PT REPOSITIONED FOR COMFORT. ORAL CARE PERFORMED. DRAINS BEING EMPTYED NEEDED PER ORDERS. NO SIGNS OF ACUTE DISTRESS NOTED AT THIS TIME. WILL CONTINUE TO MONITOR.
--- NOTE | 2019-03-22 03:00 | NUR ---
REASSESSMENT COMPLETED, SEE FLOWSHEET FOR DETAILS. PT IS LAYING IN BED INTUBATED AND SEDATED. PT REPOSITIONED FOR COMFORT. ORAL CARE PERFORMED. DRAINS EMPTYED NEEDED PER ORDERS. NO SIGNS OF ACUTE DISTRESS NOTED. WILL CONTINUE TO MONITOR.
[2019-03-22 04:52] LABS: BASOPHILS 0.1 % (0-2); EOSINOPHILS 0.7 % (0-7); HEMATOCRIT 33.2 % (36.0-48.0); HEMOGLOBIN 11.4 g/dL (12-16); IMMATURE GRANULOCYTES 0.5 % (0-5); LYMPHOCYTES 5.6 % (15-50); MCH 30.2 pg (26.0-34.0); MCHC 34.3 g/dL (31.0-37.0); MEAN PLATELET VOLUME 9.5 fL (7.4-10.4); MONOCYTES 5.8 % (2-11); NEUTROPHILS 87.3 % (40-80); RBC 3.77 10x6/uL (4.00-5.40); RDW 14.1 % (11.5-14.5); WBC 13.5 10x3/uL (4.8-10.8)
--- NOTE | 2019-03-22 05:00 | NUR ---
PT IS LAYING IN BED INTUBATED AND SEDATED. PT REPOSITIONED FOR COMFORT. ORAL CARE PERFORMED. DRAINS EMPTYED NEEDED PER ORDERS. NO SIGNS OF ACUTE DISTRESS. WILL CONTINUE TO MONITOR.
[2019-03-22 05:02] LABS: MCV 88.1 fL (80.0-100.0); PLATELET COUNT 134 10x3/uL (130-400)
[2019-03-22 05:07] LABS: APTT 29.8 SECONDS (22.8-39.4); INR 1.08 (0.85-1.17); PROTIME 13.5 SECONDS (11.6-15.0)
[2019-03-22 05:31] LABS: ALBUMIN 1.7 g/dL (3.4-5.0); BILIRUBIN - TOTAL 0.52 mg/dL (0.2-1.3); CALCIUM 8.1 mg/dL (8.5-10.1); CARBON DIOXIDE 25.5 mmol/L (21.0-32.0); PHOSPHOROUS 3.4 mg/dL (2.5-4.9); PROTEIN - SERUM 4.3 g/dL (6.4-8.2)
[2019-03-22 05:33] LABS: ANION GAP 14.8 mmol/L (8-16); CREATININE - SERUM 1.2 mg/dL (0.6-1.3); POTASSIUM - SERUM 4.3 mmol/L (3.5-5.1)
--- NOTE | 2019-03-22 07:00 | NUR ---
RECEIVED REPORT FROM OFFGOING NURSE. PT RESTING IN BED SEDATED ON VENT WITH VSS. WOUND VAC TO MIDLINE INCISION. RIGHT ABDOMINAL HERO DRAINING SEROUS FLUID. LEFT ABDOMINAL HERO DRAINING SEROUS FLUID. G-TUBE DRAINING NATALIE. BILATERAL ABDOMINAL DAVOL DRAINS DRAINING SEROSANGUINEOUS FLUID. MARIA IN PLACE. ART LINE AND TRIALYSIS CATH TO RIGHT GROIN. RIGHT JUGULAR CVL HOOKED TO CVP. WILL CONTINUE TO MONITOR
--- NOTE | 2019-03-22 09:00 | NUR ---
SUCTIONED ETT. LITTLER RETURN. LUNG NEWMAN ARE COARSE BUT O2 SAT STABLE. BP AND HR STABLE. SEDATED ON VENTILATOR. NO CHANGES IN STATUS.
--- NOTE | 2019-03-22 10:16 | NUR ---
OBTAINED CONSENT FOR PICC LINE FROM PATIENTS DAUGHTERTRUONG.
--- NOTE | 2019-03-22 11:14 | NUR ---
VASCULAR ACCESS NURSE ISHMAEL PLACED TRIPLE LUMEN PICC LINE TO RIGHT UPPER ARM. AT THIS TIME
--- NOTE | 2019-03-22 12:15 | OP ---
PATIENT NAME: JANICE FAIRCHILD MEDICAL RECORD: [id number] :[birth year] LOCATION:D.[facility] D.2305 ADMISSION DATE:03/16/19 SURGEON: JUNG GUARDADO MD DATE OF OPERATION: 03/21/2019 PREOPERATIVE DIAGNOSES: 1. Open abdomen packed utilizing a damage control type of closure. 2. Prior exploratory laparotomy for a bleeding duodenal ulcer. 3. Chronic vagotomy and antrectomy. 4. Prior gastrojejunostomy. 5. Acute malnutrition. POSTOPERATIVE DIAGNOSES: 1. Open abdomen packed utilizing a damage control type of closure. 2. Prior exploratory laparotomy for a bleeding duodenal ulcer. 3. Chronic vagotomy and antrectomy. 4. Prior gastrojejunostomy. 5. Acute malnutrition. 6. "Blown out" duodenal stump. 7. No further evidence of bleeding from the ulcer or from anywhere else in the abdomen. PROCEDURES: 1. Exploratory laparotomy with unpacking of abdomen. 2. Abdominal wall closure utilizing the bilateral component separation technique. The length of the myofascial release on the right side was 19.5 cm, on the left side 19 cm and consisted of the external oblique muscle. 3. Placement of 24-Iranian gastrostomy tube for gastric decompression. 4. Placement of a Witzeled jejunostomy tube for feedings. 5. Placement of drains x3, one is a Trish drain within a drain in the right upper quadrant to drain the blown out duodenal stump. The other two are 19-Iranian round closed suction drainage system, one in the left side of the abdomen and one on the right side of the abdomen. 6. Placement of midline wound VAC. SURGEON: Jung Guardado MD BRANCH LENDING OFFICER: None. BLOOD LOSS: 100 cc of new blood loss. ANESTHESIA: General. COMPLICATIONS: None. The risks, possible complications, and alternatives to procedure were discussed with the patient's family. At the end of this operation I could not find the patient's family. After the previous operation, I cannot find the patient's family either. All the conversation is being going through the telephone. Telephone consent was given. I elected not to perform a cholecystectomy on this patient because I have no evidence that she has gallbladder disease. She has secondary acute cholecystitis due to the inflammation from the packing. OPERATIVE COURSE: The patient was conveyed to the operating room electively on 03/21/2019. General anesthesia was induced by anesthesia staff. The OPERATIVE REPORT [id number] JANICE FAIRCHILD abdomen was sterilely prepped and draped. The laparotomy pads were removed one by one. A total of 11 laparotomy pads were removed. I irrigated in all quadrants of the abdomen. I used the pulse lavage motion picture set up worker to irrigate as well. The gastrojejunal anastomosis appeared to be intact. The stump of the duodenum, which I have oversewed twice before, was leaking some bilious material. I really cannot get enough duodenum into a stapler. I think stapling would fail anyhow. If I tried to free up more duodenum, there will be a chance that I would impinge upon the ampulla of Vater. Therefore, I elected to just drain the duodenal stump. In order to have gastric decompression and remove the nasogastric tube, I elected to place a gastrostomy tube. A small skin defect was across the left upper quadrant. I then dissected down through the skin and subcutaneous tissues from internally. I grasped a 24-Iranian balloon-type gastrostomy tube. I then pulled it into the abdomen. I inflated the balloon with normal saline. There was no evidence of leakage. A small anterior gastrotomy was performed. I advanced the tip of the gastrostomy tube with the balloon down through the gastrotomy and inflated the balloon. Two pursestring sutures of 2-0 silk were applied around the gastrostomy tube. I then sutured the stomach up to the anterior abdominal wall with a single 2-0 silk suture. Attention was then turned to placement of Witzeled-type jejunostomy tube. This was going to be red rubber Valladares catheter, which I was going to use for the jejunostomy tube. A large red rubber Valladares catheter was brought out through the abdominal wall defect inferior to the gastrostomy tube. I pulled the red rubber Valladares catheter into the peritoneal cavity. I cut some holes inside of the red rubber Valladares catheter and I cut off the tip. This will aid in the outflow of enteral feedings. I then created a jejunotomy on the antimesenteric border of the jejunum. I advanced the red rubber Valladares catheter. I advanced it to a point where I then sewed it in place to the jejunum with a single small Prolene. I then placed a pursestring suture around the entry site of the red rubber Valladares catheter. This was done with a 2-0 silk. Utilizing other 2-0 silks, I then witzeled the jejunum around the red rubber Valladares catheter. I then sutured the red rubber Valladares catheter up to the anterior abdominal wall with some 2-0 silks. There is no apparent kinking or twisting of the jejunum. The jejunostomy was about a foot downstream from the gastrojejunal anastomosis. I then irrigated again in all quadrants. There was no bleeding. I created a defect in the abdominal wall of the right upper quadrant and advanced a 1-inch Trish drain within a drain through this defect and laid it over the blown out jejunal stump. This drain was sutured to skin with a 2-0 silk. Two 19-Iranian round Som drains were then brought out through stab incisions, one at the left lower quadrant and one in the right lower quadrant and these were brought out along both gutters. The drains were sutured to skin with nylon sutures. I was unable to close the fascia in the midline without some type of OPERATIVE REPORT [id number] JAINCE FAIRCHILD technique. Between the anterior superior iliac spine and the left costal margin, I created a parasagittal defect and this was in the anterior axillary line. I dissected down through skin and subcutaneous tissue, I identified the external oblique muscle. This was incised with electrocautery. Utilizing the Roman retractors, I was able to retract cephalad and caudad and incised the muscles further. I used my finger bluntly to dissect the external oblique muscle from the underlying internal oblique muscle to free it up a bit. The length of the muscular release is listed above. I tried to approximate the fascia in the midline and it came together closer but still was going to be unsuitable for a primary closure. For that reason, the bilateral component separation technique is indicated. On the right side between the anterior superior iliac spine and the right costal margin at the anterior axillary line, a parasagittal incision was accomplished. I dissected down through skin and subcutaneous tissue, I identified the external oblique muscle. This was incised with electrocautery. I then bluntly freed up the muscle from the underlying internal oblique muscle. The length of the muscular release is listed above. This did allow me to close the fascia primarily in the midline. However, the fascia and muscle was very friable and it was going to be necessary to place external retention sutures. I closed the fascia from cephalad to caudad directions with looped #1 PDS. Intermixed with these sutures, I placed a large external retentions in horizontal mattress fashion over red rubber Valladares catheter bumpers. I was pleased with the closure. In order to stabilize the midline and also to aid in healing of the midline, I elected to place a wound VAC. A strip of black sponge was placed within the open defect. The cellophane type dressings were then applied over the black sponge. I scored the black sponge. A wound VAC disc was then applied. It was attached to suction, which held a good "raisin." Appliances were applied to the jejunal feeding tube as well as the Trish drains in order to catch the drainage at these sites. The patient was conveyed to the intensive care unit in critical but stable condition. TRANSINT:[id number] Voice Confirmation ID: [id number] DOCUMENT ID: [id number] JUNG GUARDADO MD at 1215 CC: CATA MELCHOR MD, MILAGRO ROBERTS MD and SHERYL VIERA [id number] DICTATION DATE: 03/21/192048 ACCORDION MAKER: 03/22/19 0203 ADM IN [facility] [address] [id number]
--- NOTE | 2019-03-22 13:27 | NUR ---
PATIENT GIVEN FULL HIBBA CLEANSE BATH. LINENS AND GOWNS CHANGED.
--- NOTE | 2019-03-22 15:00 | NUR ---
CONTINUOUSLY EMPYING DAVOL DRAINS. ORAL CARE GIVEN. VSS. WILL CONTINUE TO MONITOR
--- NOTE | 2019-03-22 15:56 | NUR ---
REPORT GIVEN TO GIGI MACARIO.
--- NOTE | 2019-03-22 16:31 | MORECARE ---
CASE MANAGEMENT DISCHARGE SUMMARY PATIENT: JANICE FAIRCHILD UNIT: [id number] ADM DATE: 03/16/19 AGE: 73 : 47 SEX: F ROOM/BED: D.2305 AUTHOR: TYRON,DOC PHYSICIAN: REFERRING PHYSICIAN: CATA MELCHOR MD DATE OF SERVICE: 03/22/19 Discharge Plan Patient Name: JANICE FAIRCHILD Facility: [facility]:[place] : 1945 Planned Disposition: Nursing Facility [facility] Cert Anticipated Discharge Date: Discharge Date: Expected LOS: Initial Reviewer: [email or web address] Initial Review Date: 03/16/2019 Generated: 03/22/19 5:31 pm DCP- Discharge Planning Updated by [email or web address]: Kavya Lopez on 03/18/19 6:[address] CM has spoke with daughter Chelsie today. Chelsie is wanting patient to be placed in [facility] upon discharge. Chelsie doesn't realize the severity of patients condition. CM explained that patient is to have surgery today and again on Thursday. Chelsie states that her mother is very strong willed. CM explained that when patient was closer to discharge then CM would send a referral to [facility]. CM will continue to follow and assist as needed with discharge planning / needs. DCP- Discharge Planning Updated by [email or web address]: Kavya Lopez on 03/16/19 3:[address] Patient Name: JANICE FAIRCHILD Admission Status: ER Accout number: [id number] Admission Date: 03-16-2019 : 1945 Admission Diagnosis: Attending: CATA MELCHOR Current LOS: 1 Anticipated DC Date: Planned Disposition: Nursing Facility [facility] Cert Primary Insurance: MEDICARE A & B Discharge Planning Comments: CM met with patient's daughter Chelsie Pimentel [phone]. Chelsie stated that patient was in [facility] in Memory Care Unit until the last few weeks. Chelsie stated that she has been caring for her mother at home for the last 3 weeks. Chelsie states that she has realized that she is incapable of being able to care for her mother at home. Chelsie states that she does not want patient to go back to [facility]. Chelsie states that she has spoken to [facility] and would like for patient to go there but [facility] stated they don't currently have a memory care bed availability. CRISTIANO signed for [facility] as 1st choice and 2nd choice is a facility locally with memory care unit. Chelsie stated that her mother got out of her home and was missing for 3 hours before police found her at [facility] on bench. Patient will definitely need to be in a facility that has a locked unit. CM contacted [facility], [facility], [facility] none have memory care units. [facility] will have a memory care unit opening March 28. CM contacted [facility] ([facility] [phone]) he stated they did have a memory care unit. CM sent referral to [facility]. CM will continue to follow and assist as needed with discharge planning / needs. Screw Remover: Kavya Lopez DCPIA - Discharge Planning Initial Assessment Updated by [email or web address]: Kavya Lopez on 03/16/19 4:24 pm * Is the patient Alert and Oriented? Yes * PCP ZUL[facility] * Preadmission Environment Home with Family * ADLs Partial Dependent * Partial ADLs (Assistance needed) Bathing Dressing Eating Medication Management Toileting Transfers * List name and contact numbers for known caregivers / representatives who currently or will assist patient after discharge: Chelsie Pimentel - daughter - [phone], * Verbal permission to speak to the caregivers and representatives has been obtained from the patient. Yes * Community resources currently utilized None * Additional services required to return to the preadmission environment? No * Can the patient safely return to the preadmission environment? Yes * Has this patient been hospitalized within the prior 30 days at any hospital? No Last DP export: 03/18/19 6:44 p Patient Name: JANIEC FAIRCHILD Page [id number] at 1631 All edits/amendments must be made on the electronic document DICTATION DATE: 03/22/191629 PROJECT MANAGEMENT DIRECTOR: JAY 03/22/191629 RPT#: [id number] DC DATE: STATUS: ADM IN [facility] [address] [place] [address] END OF REPORT
--- NOTE | 2019-03-22 17:15 | NUR ---
UPDATE GIVEN TO DAUGHTER OVER PHONE, PASSWORD GIVEN
--- NOTE | 2019-03-22 19:00 | NUR ---
REPORT RECEIVED, CARE ASSUMED. PT IS IN BED INTUBATED AND SEDATED. PT REPOSITIONED FOR COMFORT. ORAL CARE PERFORMED. INITIAL ASSESSMENT COMPLETED, SEE FLOWSHEET FOR DETAILS. PT'S DRAINS ARE BEING EMPTYED ORDERED. NO SIGNS OF ACUTE DISTRESS. WILL CONTINUE TO MONITOR.
--- NOTE | 2019-03-22 21:00 | NUR ---
PT IS LAYING IN BED INTUBATED AND SEDATED. PT REPOSITIONED FOR COMFORT. ORAL CARE PERFORMED. PT'S DRAINS ARE BEING EMPTYED PER ORDERS. NO FURTHER NEEDS NOTED. NO SIGNS OF ACUTE DISTRESS. WILL CONTINUE TO MONITOR.
--- NOTE | 2019-03-22 23:00 | NUR ---
REASSESSMENT COMPLETED, SEE FLOWSHEET FOR DETAILS. PT IS IN BED INTUBATED AND SEDATED. PT REPOSITIONED FOR COMFORT. ORAL CARE PERFORMED. NO SIGNS OF ACUTE DISTRESS NOTED. WILL CONTINUE TO MONITOR.
[2019-03-23] VITALS (25 sets, daily range): BP systolic 70–173; BP diastolic 39–73
--- NOTE | 2019-03-23 01:00 | NUR ---
PT IS IN BED INTUBATED AND SEDATED. PT REPOSITIONED FOR COMFORT. ORAL CARE PERFORMED. PT'S DRAINS ARE BEING EMPTYED PER ORDERS. NO FURTHER NEEDS NOTED AT THIS TIME. NO SIGNS OF ACUTE DISTRESS. WILL CONTINUE TO MONITOR.
--- NOTE | 2019-03-23 03:00 | NUR ---
REASSESSMENT COMPLETED, SEE FLOWSHEET FOR DETAILS. PT IS IN BED INTUBATED AND SEDATED. PT REPOSITIONED FOR COMFORT. ORAL CARE PERFORMED. PT'S DRAINS ARE BEING EMPTYED PER ORDERS. NO SIGNS OF ACUTE DISTRESS. WILL CONTINUE TO MONITOR.
--- NOTE | 2019-03-23 05:00 | NUR ---
PT IS IN BED INTUBATED AND SEDATED. PT REPOSITIONED FOR COMFORT. ORAL CARE PERFORMED. CVL DRESSING CHANGED TO PTS RIGHT IJ. PT'S DRAINS EMPTYED PER ORDERS. NO FURTHER NEEDS NOTED AT THIS TIME. NO SIGNS OF ACUTE DISTRESS. WILL CONTINUE TO MONITOR.
[2019-03-23 05:21] LABS: HEMATOCRIT 30.2 % (36.0-48.0); HEMOGLOBIN 9.6 g/dL (12-16); MCH 28.8 pg (26.0-34.0); MCHC 31.8 g/dL (31.0-37.0); MCV 90.7 fL (80.0-100.0); MEAN PLATELET VOLUME 10.6 fL (7.4-10.4); PLATELET COUNT 133 10x3/uL (130-400); RBC 3.33 10x6/uL (4.00-5.40); RDW 16.1 % (11.5-14.5); WBC 26.3 10x3/uL (4.8-10.8)
[2019-03-23 05:27] LABS: ALBUMIN 1.7 g/dL (3.4-5.0); ALKALINE PHOSPHATASE 49 U/L (46-116); BILIRUBIN - TOTAL 3.58 mg/dL (0.2-1.3); CALCIUM 7.2 mg/dL (8.5-10.1); CARBON DIOXIDE 24.1 mmol/L (21.0-32.0); CHLORIDE - SERUM 106 mmol/L (98-107); GLUCOSE 97 mg/dL (74-106); PROTEIN - SERUM 4.3 g/dL (6.4-8.2); SODIUM 138 mmol/L (136-145)
[2019-03-23 05:29] LABS: ALT (SGPT) 17 U/L (10-68); CALC OSMOLALITY 277 mosm/kg (275-300); CREATININE - SERUM 0.7 mg/dL (0.6-1.3); UREA NITROGEN 18 mg/dL (7-18); eGFR NON AFRICAN AMERICAN 87 mL/min (90-120)
--- NOTE | 2019-03-23 07:00 | NUR ---
SHIFT ASSESSMENT COMPLETED. PT CARE ASSUMED, MONITORS ON AND WORKING, VITALS STABLE, PT SEDATED ON VENT, VENT SETTINGS NOTED, SEE FLOW SHEET FOR FURTHER DETIALS, WILL CONTINUE TO OBSERVE.
[2019-03-23 08:26] LABS: LYMPHOCYTES 4 % (15-50); MONOCYTES 6 % (2-11); NEUTROPHILS 65 % (40-80); PLATELET ESTIMATE NORMAL
[2019-03-23 08:27] LABS: ANISOCYTOSIS OCC
--- NOTE | 2019-03-23 09:00 | NUR ---
NO CHANGES, MONITORS ON AND WORKING, ORAL CARE PROVIDED AT THIS TIME, WOUND CARE NURSE AT BEDSIDE CHANGING WOUND VAC, VITALS STABLE. WILL CONTINUE TO OBSERVE.
--- NOTE | 2019-03-23 09:23 | NUR ---
WOUND VAC DRESSING CHANGE DATE: 03/23/19 WOUND LOCATION: midline abd WOUND MEASUREMENTS: 28cm x 6cm x4cm WOUND DESCRIPTION: red MUSCLE, TENDON, OR BONE EXPOSED? no DRAINAGE AMOUNT/DESCRIPTION: moderate sanguinous ODOR? no TYPE OF SPONGE USED AND AMOUNT: 1 black SETTINGS: -125mmhg low continuous TEACHING: n/a pt intubated/sedated
--- NOTE | 2019-03-23 09:33 | NUR ---
Nutrition follow-up: Pt intubated, sedated with propofol @ 9 ml/hr labs reviewed Wt: 181# Wound VAC in place Received order to start trickle tube feeds via J-tube. Recommend Osmolite 1.0 myra @ 20 ml/hr with 20 ml H2O flush Q hour. RDN following.
--- NOTE | 2019-03-23 10:00 | EC ---
PATIENT:JANICE FAIRCHILD DATE OF SERVICE: 03/16/19 SEX: F MEDICAL RECORD: [id number] DATE OF : [birth year] LOCATION:[facility] AGE OF PATIENT: 73 ADMISSION DATE: 03/16/19 REFERRING PHYSICIAN: INTERPRETING PHYSICIAN: FRANKY BAILEY MD ECHOCARDIOGRAM REPORT ECHO CHARGES 5 ECHO LIMITED Date: 03/22/19 CLINICAL DIAGNOSIS: CHF ECHOCARDIOGRAPHIC MEASUREMENTS (adult normal given) AC root (d.<3.7cm) cm LV Septum d (<1.2 cm> cm Valve Excursion cm LV Septum (systole) cm Left Atria (s.<4.0cm> 2.8 cm LVPW d(<1.2cm) cm RV (d.<2.3cm) 3.5 cm LVPW (sytole) cm LV diastole(<5.6CM) 4.3 cm MV E-F(>70mm/sec) cm LV systole 3.2 cm LVOT Diameter cm MV exc.(>10mm) cm Est.ejection fraction (50-75%) % DOPPLER: LVIT cm/sec A 101 cm/sec E 81.0 cm/sec LA cm/sec RVSP mmHg LVOT cm/sec AOP1/2T m/s Asc. Ao cm/sec RVOT cm/sec RA cm/sec PA cm/sec AV Gradient Peak mmHg AV Mean mmHg AV Area cm MV Gradient Peak 3.75 mmHg MV Mean 1.35 mmHg MV Area cm COMMENTS: Car Repairer Pullman: Eren LIPSCOMB Senior Auditor: Rupert Bailey TAPE# PACS Pericardial Effusion N DATE OF SERVICE: 03/22/2019 FINDINGS: 1. Left ventricular chamber size is within normal limits. Left ventricular systolic function is normal. Overall ejection fraction is estimated at 60%. 2. Left atrium, right atrium, and right ventricle chamber sizes are within normal limit. 3. Valvular structures have normal structure and motion. 4. Doppler interrogation reveals only trace tricuspid regurgitation. No other valvular insufficiency or stenosis. Pulmonary systolic pressure is normal, ECHOCARDIOGRAM REPORT [id number] JANICE FAIRCHILD estimated at 28 mmHg. 5. No evidence of pericardial effusion or left ventricular thrombus. TRANSINT:[id number] Voice Confirmation ID: [id number] DOCUMENT ID: [id number] FRANKY BAILEY MD at 1000 CC: [id number] DICTATION DATE: 03/22/19 1549 FIBRE OPTIC CABLE SPLICER: 03/22/192007 ADM IN [facility] [address] [id number]
--- NOTE | 2019-03-23 11:00 | NUR ---
PT CLEANED AND REPOSITIONED, MONITORS ON AND WORKING, VITALS STABLE, NO SIGNS/SYMTPOMS OF PAIN OR DISCOMFORT NOTED AT THIS TIME, SEE FLOW SHEET FOR FURTHER DETAILS. WILL CONTINUE TO OBSERVE.
--- NOTE | 2019-03-23 13:00 | NUR ---
NO CHANGES, MONITORS ON AND WORKING, VITALS STABLE, SEDATION VACATION, PT RESPONDS TO VERBAL STIMULI. WILL CONTINUE TO OBSERVE.
--- NOTE | 2019-03-23 15:00 | NUR ---
TUBE FEEDS STARTED VIA J TUBE PER DR GUARDADO. PT TOLERATING WELL. CENTRAL LINE DRESSING CHANGE, CHG BED BATH AND LINEN CHANGE DONE AT THIS TIME WELL ORAL CARE. MONITORS ON AND WORKING, VITALS STABLE, SEE FLOW SHEET FOR FURTHER DETIALS. WILL CONTINUE TO OBSERVE.
--- NOTE | 2019-03-23 17:00 | NUR ---
PT TURNED AND REPOSITIONED FOR COMFORT, SPOKE WITH DAUGHTER ON PHONE, PASSWORD CONFIRMED AND UPDATE PROVIDED, NO SIGNS/SYMPTOMS OF PAIN OR DISCOMFORT NOTED. MONITORS ON AND WORKING VITALS STABLE, WILL CONTINUE TO OBSERVE.
--- NOTE | 2019-03-23 19:00 | NUR ---
REPORT RECEIVED, CARE ASSUMED. PT IS LAYING IN BED INTUBATED AND SEDATED. INITIAL ASSESSMENT COMPLETED, SEE FLOWSHEET. DR GUARDADO CAME BY TO SEE PATIENT AND REMOVED TWO OF HER DRAINS. DRAIN SITES BANDAGED. NO SIGNS OF ACUTE DISTRESS. WILL CONTINUE TO MONITOR.
--- NOTE | 2019-03-23 19:38 | NUR ---
STARTED PT ON METANEB TREATMENT AND HER BLOOD PRESSURE BECAME ELEVATED WHILE ON THE TREATMENT. ARTLINE PRESSUE WENT FROM SYSTOLIC 120 TO 180. STOPPED TREATMENT AFTER ABOUT 7 MINUTES
--- NOTE | 2019-03-23 21:00 | NUR ---
PT IS RESTING IN BED INTUBATED AND SEDATED AT THIS TIME. PT REPOSITIONED FOR COMFORT. ORAL CARE PERFORMED. NO FURTHER NEEDS NOTED AT THIS TIME. WILL CONTINUE TO MONITOR.
--- NOTE | 2019-03-23 23:00 | NUR ---
REASSESSMENT COMPLETED, SEE FLOWSHEET FOR DETAILS. PT REPOSITIONED FOR COMFORT. ORAL CARE PERFORMED. NO FURTHER NEEDS NOTED AT THIS TIME. WILL CONTINUE TO MONITOR.
[2019-03-24] VITALS (24 sets, daily range): BP systolic 86–160; BP diastolic 43–69
--- NOTE | 2019-03-24 01:00 | NUR ---
PT IS IN BED INTUBATED AND SEDATED. PT REPOSITIONED FOR COMFORT. ORAL CARE PERFORMED. NO FURTHER NEEDS NOTED AT THIS TIME. NO SIGNS OF ACUTE DISTRESS. WILL CONTINUE TO MONITOR.
--- NOTE | 2019-03-24 03:00 | NUR ---
REASSESSMENT COMPLETED, SEE FLOWSHEET FOR DETAILS. PT IS IN BED INTUBATED AND SEDATED. PT REPOSITIONED FOR COMFORT. ORAL CARE PERFORMED. NO FURTHER NEED NOTED AT THIS TIME. NO SIGNS OF ACUTE DISTRESS. WILL CONTINUE TO MONITOR.
--- NOTE | 2019-03-24 05:00 | NUR ---
PT IS IN BED INTUBATED AND SEDATED. PT REPOSITIONED FOR COMFORT. ORAL CARE PERFORMED. NO NEEDS NOTED AT THIS TIME. NO SIGNS OF ACUTE DISTRESS. WILL CONTINUE TO MONITOR.
[2019-03-24 05:30] LABS: ALBUMIN 2.1 g/dL (3.4-5.0); ALKALINE PHOSPHATASE 57 U/L (46-116); ALT (SGPT) 16 U/L (10-68); BILIRUBIN - TOTAL 3.84 mg/dL (0.2-1.3); CALC OSMOLALITY 277 mosm/kg (275-300); CALCIUM 7.6 mg/dL (8.5-10.1); CARBON DIOXIDE 21.4 mmol/L (21.0-32.0); CHLORIDE - SERUM 106 mmol/L (98-107); CREATININE - SERUM 0.6 mg/dL (0.6-1.3); GLUCOSE 103 mg/dL (74-106); PROTEIN - SERUM 4.7 g/dL (6.4-8.2); SODIUM 138 mmol/L (136-145); UREA NITROGEN 17 mg/dL (7-18); eGFR NON AFRICAN AMERICAN > 90 mL/min (90-120)
[2019-03-24 05:32] LABS: BASOPHILS 0.2 % (0-2); EOSINOPHILS 0.4 % (0-7); HEMOGLOBIN 9.5 g/dL (12-16); IMMATURE GRANULOCYTES 12.2 % (0-5); LYMPHOCYTES 3.8 % (15-50); MCH 29.4 pg (26.0-34.0); MCHC 32.8 g/dL (31.0-37.0); MCV 89.8 fL (80.0-100.0); MEAN PLATELET VOLUME 10.9 fL (7.4-10.4); MONOCYTES 4.8 % (2-11); NEUTROPHILS 78.6 % (40-80); PLATELET COUNT 163 10x3/uL (130-400); RBC 3.23 10x6/uL (4.00-5.40); RDW 16.1 % (11.5-14.5); WBC 28.1 10x3/uL (4.8-10.8)
--- NOTE | 2019-03-24 07:00 | NUR ---
SHIFT ASSESSMENT COMPLETED. PT CARE ASSUMED, MONITORS ON AND WORKING, VITALS STABLE. NO SIGNS/SYMPTOMS OF PAIN OR DISCOMFORT NOTED AT THIS TIME, PT SEDATED ON VENT, VENT SETTINGS NOTED. SEE FLOW SHEET FOR FURTHER DETIALS. WILL CONTINUE TO OBSERVE.
--- NOTE | 2019-03-24 09:00 | NUR ---
ORAL CARE DONE AT THIS TIME, PT TURNED AND REPOSITIONED FOR COMFORT, MONITORS ON AND WORKING, VITALS STABLE. WILL CONTINUE TO OBSERVE.
--- NOTE | 2019-03-24 09:32 | NUR ---
Nutrition follow-up: Pt remains intubated. Osmolite 1.0 myra trickle feeds started and infusing @ 20 ml/hr with 10 ml H2O flush Q hour. Pt is currently tolerating per nursing. ProcalAmine PPN continues to infuse @ 50 ml/hr Propofol @ 10 ml/hr RDN following.
--- NOTE | 2019-03-24 11:00 | NUR ---
PHONE CONSENT OBTAINED FOR BRONCHOSCOPY PER DR PASTRANA, MONITORS ON AND WORKING, VITALS STABLE. NO SIGNS/SYMPTOMS OF PAIN OR DISCOMFORT NOTED, WILL CONTINUE TO OBSERVE.
--- NOTE | 2019-03-24 12:56 | MORECARE ---
CASE MANAGEMENT DISCHARGE SUMMARY PATIENT: JANICE FAIRCHILD UNIT: [id number] ADM DATE: 03/16/19 AGE: 73 : 47 SEX: F ROOM/BED: D.2305 AUTHOR: TYRON,DOC PHYSICIAN: REFERRING PHYSICIAN: CATA MELCHOR MD DATE OF SERVICE: 03/24/19 Discharge Plan Patient Name: JANICE FAIRCHILD Facility: [facility]:[place] : 1945 Planned Disposition: Nursing Facility [facility] Cert Anticipated Discharge Date: Discharge Date: Expected LOS: Initial Reviewer: [email or web address] Initial Review Date: 03/16/2019 Generated: 03/24/19 1:56 pm DCP- Discharge Planning Updated by [email or web address]: Kavya Lopez on 03/18/19 6:[address] CM has spoke with daughter Chelsie today. Chelsie is wanting patient to be placed in [facility] upon discharge. Chelsie doesn't realize the severity of patients condition. CM explained that patient is to have surgery today and again on Thursday. Chelsie states that her mother is very strong willed. CM explained that when patient was closer to discharge then CM would send a referral to [facility]. CM will continue to follow and assist as needed with discharge planning / needs. DCP- Discharge Planning Updated by [email or web address]: Kavya Lopez on 03/16/19 3:[address] Patient Name: JANICE FAIRCHILD Admission Status: ER Accout number: [id number] Admission Date: 03-16-2019 : 1945 Admission Diagnosis: Attending: CATA MELCHOR Current LOS: 1 Anticipated DC Date: Planned Disposition: Nursing Facility [facility] Cert Primary Insurance: MEDICARE A & B Discharge Planning Comments: CM met with patient's daughter Chelsie Pimentel [phone]. Chelsie stated that patient was in [facility] in Memory Care Unit until the last few weeks. Chelsie stated that she has been caring for her mother at home for the last 3 weeks. Chelsie states that she has realized that she is incapable of being able to care for her mother at home. Chelsie states that she does not want patient to go back to [facility]. Chelsie states that she has spoken to [facility] and would like for patient to go there but [facility] stated they don't currently have a memory care bed availability. CRISTIANO signed for [facility] as 1st choice and 2nd choice is a facility locally with memory care unit. Chelsie stated that her mother got out of her home and was missing for 3 hours before police found her at [facility] on bench. Patient will definitely need to be in a facility that has a locked unit. CM contacted [facility], [facility], [facility] none have memory care units. [facility] will have a memory care unit opening March 28. CM contacted [facility] ([facility] [phone]) he stated they did have a memory care unit. CM sent referral to [facility]. CM will continue to follow and assist as needed with discharge planning / needs. Convertible Top Installer: Kavya Lopez DCPIA - Discharge Planning Initial Assessment Updated by [id number]: Kavya Lopez on 03/16/19 4:24 pm * Is the patient Alert and Oriented? Yes * PCP ZULY * Preadmission Environment Home with Family * ADLs Partial Dependent * Partial ADLs (Assistance needed) Bathing Dressing Eating Medication Management Toileting Transfers * List name and contact numbers for known caregivers / representatives who currently or will assist patient after discharge: Chelsie Pimentel - daughter - [phone], * Verbal permission to speak to the caregivers and representatives has been obtained from the patient. Yes * Community resources currently utilized None * Additional services required to return to the preadmission environment? No * Can the patient safely return to the preadmission environment? Yes * Has this patient been hospitalized within the prior 30 days at any hospital? No Last DP export: 03/22/19 3:31 p Patient Name: JANICE FAIRCHILD Page [id number] at 1256 All edits/amendments must be made on the electronic document DICTATION DATE: 03/24/191255 KITCHEN FOOD ASSEMBLER: JAY 03/24/191255 RPT#: [id number] DC DATE: STATUS: ADM IN [facility] [address] [place] [address] END OF REPORT
--- NOTE | 2019-03-24 13:00 | NUR ---
PT TURNED AND REPOSITIONED FOR COMFORT, NO SIGNS/SYMPTOMS OF PAIN OR DISCOMFORT NOTED. WILL CONTINUE TO OBSERVE.
--- NOTE | 2019-03-24 15:00 | NUR ---
PT TURNED AND REPOSITIONED FOR COMFORT, NO CHANGES SEE FLOW SHEET FOR FURTHER DETIALS, WILL CONTINUE TO OBSERVE.
--- NOTE | 2019-03-24 17:00 | NUR ---
COMPLETE BED BATH AND LINEN CHANGE DONE AT THIS TIME, MONITORS ON AND WORKING, DR GUARDADO AT [facility], REC'D ORDERS TO D/C RIGHT GROIN TRIALYSIS CATH, NO SIGNS/SYMPTOMS OF PAIN OR DISCOMFORT NOTED AT THIS TIME, WILL CONTINUE TO OBSERVE.
--- NOTE | 2019-03-24 19:00 | NUR ---
REPORT RECEIVED, CARE ASSUMED. PT IS IN BED INTUBATED AND SEDATED AT THIS TIME. INITIAL ASSESSMENT COMPLETED, SEE FLOWSHEET FOR DETAILS. NO SIGNS OF ACUTE DISTRESS NOTED AT THIS TIME. WILL CONTINUE TO MONITOR.
--- NOTE | 2019-03-24 21:00 | NUR ---
PT IS LAYING IN BED INTUBATED AND SEDATED. PT REPOSITIONED FOR COMFORT. ORAL CARE PERFORMED. NO SIGNS OF ACUTE DISTRESS NOTED. WILL CONTINUE TO MONITOR.
--- NOTE | 2019-03-24 23:00 | NUR ---
REASSESSMENT COMPLETED, SEE FLOWSHEET FOR DETAILS. PT IS LAYING IN BED INTUBATED AND SEDATED AT THIS TIME. PT REPOSITIONED FOR COMFORT. ORAL CARE PERFORMED. NO SIGNS OF ACUTE DISTRESS NOTED. WILL CONTINUE TO MONITOR.
[2019-03-25] VITALS (24 sets, daily range): BP systolic 75–162; BP diastolic 42–104
--- NOTE | 2019-03-25 01:00 | NUR ---
PT IS IN BED INTUBATED AND SEDATED. PT REPOSITIONED FOR COMFORT. ORAL CARE PERFORMED. NO SIGNS OF ACUTE DISTRESS NOTED. WILL CONTINUE TO MONITOR.
--- NOTE | 2019-03-25 03:00 | NUR ---
REASSESSMENT COMPLETED, SEE FLOWSHEET FOR DETAILS. PT IS IN BED INTUBATED AND SEDATED. PT REPOSITIONED FOR COMFORT. ORAL CARE PERFORMED. NO SIGNS OF ACUTE DISTRESS. WILL CONTINUE TO MONITOR.
--- NOTE | 2019-03-25 05:00 | NUR ---
IO COLLECTED DAILY WEIGHT COLLECTED VSS WILL CONTINUE TO MONITOR.
[2019-03-25 05:34] LABS: HEMATOCRIT 28.1 % (36.0-48.0); HEMOGLOBIN 9.2 g/dL (12-16); MCH 29.3 pg (26.0-34.0); MCHC 32.7 g/dL (31.0-37.0); MCV 89.5 fL (80.0-100.0); MEAN PLATELET VOLUME 10.2 fL (7.4-10.4); PLATELET COUNT 173 10x3/uL (130-400); RBC 3.14 10x6/uL (4.00-5.40); RDW 16.2 % (11.5-14.5); WBC 25.7 10x3/uL (4.8-10.8)
[2019-03-25 05:56] LABS: LYMPHOCYTES 20 % (15-50); MONOCYTES 10 % (2-11); NEUTROPHILS 41 % (40-80); PLATELET ESTIMATE NORMAL
[2019-03-25 05:58] LABS: ALBUMIN 2.2 g/dL (3.4-5.0); ALKALINE PHOSPHATASE 59 U/L (46-116); ALT (SGPT) 17 U/L (10-68); BILIRUBIN - TOTAL 4.06 mg/dL (0.2-1.3); CALC OSMOLALITY 278 mosm/kg (275-300); CALCIUM 7.7 mg/dL (8.5-10.1); CHLORIDE - SERUM 107 mmol/L (98-107); CREATININE - SERUM 0.6 mg/dL (0.6-1.3); GLUCOSE 109 mg/dL (74-106); POTASSIUM - SERUM 3.9 mmol/L (3.5-5.1); PROTEIN - SERUM 4.9 g/dL (6.4-8.2); SODIUM 138 mmol/L (136-145); UREA NITROGEN 17 mg/dL (7-18); eGFR NON AFRICAN AMERICAN > 90 mL/min (90-120)
--- NOTE | 2019-03-25 07:00 | NUR ---
SHIFT ASSESSMENT COMPLETED. PT CARE ASSUMED, MONITORS ON AND WORKING, VITALS STABLE. NO SIGNS/SYMPTOMS OF PAIN OR DISCOMFORT AT THIS TIME, VENT SETTINGS NOTED. SEE FLOW SHEET FOR FURTHER DETAILS, WILL CONTINUE TO OBSERVE.
--- NOTE | 2019-03-25 09:00 | NUR ---
PT TURNED AND REPOSITIONED FOR COMFORT, ORAL CARE DONE AT THIS TIME WELL. MONITORS ON AND WORKING, VITALS STABLE, WILL CONTINUE TO OBSERVE.
--- NOTE | 2019-03-25 09:08 | NUR ---
Nutrition follow-up: Pt remains intubated, sedated Propofol @ 9 ml/hr Osmolite 1.0 myra @ 20 ml/hr with 10 ml/hr flush ProcalAmine PPN @ 50 ml/hr Labs reviewed Wt: 181# s/p bronchoscopy Propofol, PPN, TF providin kcal 57 gm protein Pt is now assessed with severe malnutrition of acute illness R/T GI bleed AEB 1) < 50% intake of estimated energy needs for > 5 days 2) measurably reduced clinical faculty strength (pt intubated) 3) noted moderate subcutaneous fat, muscle loss to all extremeties and also some fluid accumulation When medically feasible, will increase TF to goal rate of 75 ml/hr. RDN following.
--- NOTE | 2019-03-25 11:00 | NUR ---
NO CHANGES, WOUND CARE NURSE AT BEDSIDE CHANGING WOUND VAC, PT TURNED AND REPOSITIONED FOR COMFORT, MONITORS ON AND WORKING, VITALS STABLE. SEE FLOW SHEET FOR FURTHER DETAILS. WILL CONTINUE TO OBSERVE.
[2019-03-25 11:14] LABS: FUNGUS STAIN Final report (())
--- NOTE | 2019-03-25 11:49 | NUR ---
WOUND VAC DRESSING CHANGE DATE: 03/25/19 WOUND LOCATION: MIDLINE ABDOMEN WOUND MEASUREMENTS:28CM X6CM X 4CM (NO CHANGE IN MEASUREMENTS) WOUND DESCRIPTION: RED WITH GRANULALTION (IMPROVED) MUSCLE, TENDON, OR BONE EXPOSED? NO DRAINAGE AMOUNT/DESCRIPTION: MODERATE SANGUINOUS ODOR? NO TYPE OF SPONGE USED AND AMOUNT: 1 BLACK IN WOUND BED + 1 BLACK FOR TRAC PAD SETTINGS: -125MMHG LOW CONTINUOUS TEACHING: N/A SEDATED/INTUBATED
--- NOTE | 2019-03-25 11:51 | NUR ---
Open wound noted on sacrum (stage 2 pressure injury). It measures 3cm x 2cm x 0.4cm. Periwound is peeling. Recommend mepilex sacral dressing and turn/reposition q 2 hours. Bilateral buttocks blanchable red/rashy. Recommend calmoseptine cream for this area. Heels are intact. Recommend floating to prevent breakdown. Also ordered air overlay mattress. Wound care continues monitoring.
--- NOTE | 2019-03-25 13:00 | NUR ---
NO CHANGES, MONITORS ON AND WORKING, VITALS STABLE, WILL CONTINUE TO OBSERVE.
--- NOTE | 2019-03-25 15:00 | NUR ---
PT TURNED AND REPOSITIONED FOR COMFORT, ORAL CARE PROVIDED AT THIS TIME. MONITORS ON AND WORKING, VITALS STABLE, SEE FLOW SHEET FOR FURTHER DETIALS, WILL CONTINUE TO OBSERVE.
--- NOTE | 2019-03-25 17:00 | NUR ---
NO CHANGES, MONITORS ON AND WORKING, VITALS STABLE, PT TURNED AND REPOSITIONED FOR COMFORT. WILL CONTINUE TO OBSERVE.
--- NOTE | 2019-03-25 17:12 | OP ---
PATIENT NAME: JANICE FAIRCHILD MEDICAL RECORD: [id number] :47 LOCATION:[facility] D.2305 ADMISSION DATE:03/16/19 SURGEON: JUNG GUARDADO MD DATE OF OPERATION: 03/19/2019 PREOPERATIVE DIAGNOSES: 1. Septicemia. 2. Open abdomen status post exploratory laparotomy with damage control closure. 3. Discontinuity of the gastrointestinal system. POSTOPERATIVE DIAGNOSES: 1. Septicemia. 2. Open abdomen status post exploratory laparotomy with damage control closure. 3. 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 PROCEDURES: 1. Exploratory laparotomy. 2. Unpacking of abdomen. A total of 11 laparotomy pads were unpacked. 3. Abdominal lavage. 4. Oversewing of duodenal stump. 5. Vagotomy. 6. Retrocolic gastrojejunostomy. 7. Damage control closure with repacking consisting of 11 laparotomy pads. SURGEON: Jung Guardado MD PARTS ROOM CLERK: None. BLOOD LOSS: Less than 100 cc. ANESTHESIA: General. COMPLICATIONS: None. The patient underwent laparotomy on Thursday. She almost exsanguinated. She suffered a cardiopulmonary arrest while at the table. She had massive hemorrhage. She was very acidotic. She miraculously has survived. She was packed. There was no effort made to try to bring the gastrointestinal tract back into continuity due to the need to get her off the OR table and get her warm as she was coagulopathic and hypothermic. OPERATIVE COURSE: The patient was conveyed to operating room electively on 03/18/2019. This operation began on 03/18/2019 and extended into the land title examiner hours of 03/19/2019. The abdomen was sterilely prepped and draped. A total of 11 laparotomy pads were removed. I ran the small bowel. There was no full thickness enteric injury. I noted no seromyotomy. The colon was undamaged during unpacking procedure. I irrigated in all quadrants with normal saline. There was no bleeding. I traced the right ureter and it was undamaged throughout its course. During the last operation, I rolled the right colon medially. The C-loop of the duodenum looked fine. There was bilious staining in the right upper quadrant. I could OPERATIVE REPORT [id number] JANICE FAIRCHILD see that the duodenal stump was very thickened, indurated and friable. It may be impossible to close this duodenal stump. Certainly, it was not suitable for an anastomosis. I could not free up enough of the duodenal stump due to scarring in order to place the stapling device across such as the TA 60. So, instead I elected to oversew the stump with a running 3-0 Prolene suture. I will plan on bringing her back on Thursday. If there is still bilious-staining, I may elect to place a drainage tube within the duodenum in order to control the bilious drainage. Alternatively, I may attempt to oversew it again. The patient had undergone an antrectomy during the prior operation. We now need to perform a vagotomy. I took down the phrenic attachments to the left lateral segment of the liver. This was the portion of the triangular ligament to the left. I was able fold the left lateral segment off to the side. I packed the spleen off. I took down the phrenicoesophageal ligament. I was able to wrap my fingers around the esophagus. I placed a large [place] drain as a means of retraction. I used a large hemostat on the [place] drain in order to retract the stomach caudad. I identified 2 structures, which appeared to be vagus nerves. Each of these was clamped with a long hemostat. I clipped both of these was titanium clips and divided the vagus nerve between the 2 structures. In order to confirm that this indeed the vagus nerve, it will be sent to pathology for pathologic interpretation. If it was not the vagus nerve, then when I return to the operating room on Thursday I can search further for something that resembled the vagus nerve. A retrocolic window was created in the mesocolon. I identified the ligament of Treitz. I chose an area for my anastomosis about a foot distal to the ligament of Treitz. I brought up the jejunum and placed it on the posterior aspect of the gastric remnant. Some stay sutures of 3-0 Vicryl were placed. A small gastrotomy and small enterotomy were accomplished. I advanced anvils of the JOHN-75 stapler and then fired. The resulting gastroenteric defect was closed with a single firing of the TA 60 stapler. I oversewed half of the staple line with a 4-0 Monocryl and oversewed the TA 60 staple line with same 4-0 Monocryl and then tied. I irrigated in all quadrants and aspirated. There was no further bleeding. I then packed the abdomen with 11 laparotomy pads. An Ioban was placed over the abdomen and over the laparotomy pads as a damage control closure maneuver. The patient was then conveyed back to the intensive care unit in critical, but stable condition. TRANSINT:[id number] Voice Confirmation ID: [id number] DOCUMENT ID: [id number] JUNG GUARDADO MD at 1712 CC: CATA MELCHOR MD, MILAGRO ROBERTS MD and SHERYL VIERA [id number] DICTATION DATE: 03/19/19 0028 WRAPPER COUNTER: 03/19/19 0143 ADM IN [facility] [address] [id number]
[2019-03-25 19:08] LABS: ACID FAST SMEAR Negative (()); AFB SPECIMEN PROCESSING Concentration (())
--- NOTE | 2019-03-25 19:30 | NUR ---
RECEIVED CARE OF PT, ASSESSMENT PER FLOWSHEET. PT INTUBATED AND SEDATED, IV DRIPS PER FLOWSHEET TO RT UPPER ARM PICC-DRESSING CDI, RT GROIN A-LINE NOTED WITH GOOD WAVEFORM FLUSHED AND ZEROED, PPP, MARIA CATH PATENT, OSMOLITE INFUSING TO G-TUBE AT 20CC/HR PER MD ORDER, J-TUBE AND HERO DRAIN TO GRAVITY WITH GREEN LIQUID NOTED. ORAL CARE AND SUCTIONING PROVIDED, POSITIONED FOR COMFORT. WILL MONITOR.0
--- NOTE | 2019-03-25 21:50 | NUR ---
NO VISITORS PRESENT AT THIS TIME, VSS, CONT TO MONITOR.
--- NOTE | 2019-03-25 23:30 | NUR ---
REASSESSMENT PER FLOWSHEET, NO ACUTE CHANGES NOTED, ORAL CARE AND SUCTIONING PROVIDED, CONT TO MONITOR.
[2019-03-26] VITALS (24 sets, daily range): BP systolic 32–154; BP diastolic 40–71
[2019-03-26 03:57] LABS: BASOPHILS 0.1 % (0-2); EOSINOPHILS 0.2 % (0-7); IMMATURE GRANULOCYTES 5.4 % (0-5); LYMPHOCYTES 3.8 % (15-50); MCH 29.4 pg (26.0-34.0); MCHC 33.3 g/dL (31.0-37.0); MCV 88.2 fL (80.0-100.0); MEAN PLATELET VOLUME 10.5 fL (7.4-10.4); MONOCYTES 4.7 % (2-11); NEUTROPHILS 85.8 % (40-80); PLATELET COUNT 193 10x3/uL (130-400); RBC 2.72 10x6/uL (4.00-5.40); RDW 16.1 % (11.5-14.5); WBC 21.9 10x3/uL (4.8-10.8)
[2019-03-26 04:13] LABS: ALBUMIN 2.1 g/dL (3.4-5.0); ALKALINE PHOSPHATASE 57 U/L (46-116); ALT (SGPT) 15 U/L (10-68); BILIRUBIN - TOTAL 3.92 mg/dL (0.2-1.3); CALC OSMOLALITY 277 mosm/kg (275-300); CALCIUM 7.4 mg/dL (8.5-10.1); CARBON DIOXIDE 23.2 mmol/L (21.0-32.0); CHLORIDE - SERUM 105 mmol/L (98-107); CREATININE - SERUM 0.7 mg/dL (0.6-1.3); GLUCOSE 103 mg/dL (74-106); POTASSIUM - SERUM 3.8 mmol/L (3.5-5.1); PROTEIN - SERUM 4.5 g/dL (6.4-8.2); SODIUM 138 mmol/L (136-145); TRIGLYCERIDE 140 mg/dL (30-200); UREA NITROGEN 17 mg/dL (7-18); eGFR NON AFRICAN AMERICAN 87 mL/min (90-120)
--- NOTE | 2019-03-26 05:09 | NUR ---
AM LABS REVIEWED, NOTHING TO TREAT PER ELECTROLYTE PROTOCOL. AM ABG'S NOTED AND SERUM CBC REVIEWED.
[2019-03-26 06:23] LABS: APPEARANCE HAZY (CLEAR); BILIRUBIN 2+ (NEGATIVE); COLOR YELLOW (YELLOW); GLUCOSE NEGATIVE (NEGATIVE); KETONE NEGATIVE (NEGATIVE); NITRITE NEGATIVE (NEGATIVE); PROTEIN 1+ mg/dL (NEGATIVE); UROBILINOGEN NORMAL (NORMAL)
[2019-03-26 06:25] LABS: BACTERIA FEW /hpf (NONE SEEN); EPITHELIAL CELLS 0-5 /hpf (0-5); RED CELLS - URINE 0-5 /hpf (0-5); YEAST >1+ WITH HYPHAE /hpf (NONE SEEN)
--- NOTE | 2019-03-26 07:37 | NUR ---
DR GIORDANO NOTIFIED OF DECREASED H & H, ORDERS RECEIVED.
--- NOTE | 2019-03-26 11:00 | NUR ---
ASSESSMENT UNCHANGED, NO NOTED DISTRESS, NO CHANGES NOTED
[2019-03-27] VITALS (24 sets, daily range): BP systolic 102–161; BP diastolic 46–87
[2019-03-27 05:56] LABS: HEMATOCRIT 30.6 % (36.0-48.0); HEMOGLOBIN 10.3 g/dL (12-16); MCH 29.8 pg (26.0-34.0); MCHC 33.7 g/dL (31.0-37.0); MCV 88.4 fL (80.0-100.0); MEAN PLATELET VOLUME 10.4 fL (7.4-10.4); PLATELET COUNT 267 10x3/uL (130-400); RBC 3.46 10x6/uL (4.00-5.40); WBC 22.2 10x3/uL (4.8-10.8)
[2019-03-27 06:10] LABS: ALBUMIN 2.5 g/dL (3.4-5.0); ALKALINE PHOSPHATASE 74 U/L (46-116); ALT (SGPT) 16 U/L (10-68); AMYLASE - SERUM 34 U/L (25-115); BILIRUBIN - TOTAL 5.08 mg/dL (0.2-1.3); CALC OSMOLALITY 277 mosm/kg (275-300); CALCIUM 7.8 mg/dL (8.5-10.1); CHLORIDE - SERUM 104 mmol/L (98-107); CREATININE - SERUM 0.6 mg/dL (0.6-1.3); GLUCOSE 99 mg/dL (74-106); LIPASE 59 U/L (73-393); MAGNESIUM - SERUM 1.9 mg/dL (1.8-2.4); PHOSPHOROUS 3.9 mg/dL (2.5-4.9); POTASSIUM - SERUM 3.7 mmol/L (3.5-5.1); PROTEIN - SERUM 5.2 g/dL (6.4-8.2); SODIUM 138 mmol/L (136-145); UREA NITROGEN 17 mg/dL (7-18); eGFR NON AFRICAN AMERICAN > 90 mL/min (90-120)
--- NOTE | 2019-03-27 06:14 | NUR ---
NO VISITORS PRESENT AT THIS TIME, ORAL CARE AND SUCTIONING PROVIDED, REPOSITIONED GENTLY SUPPORTED WITH PILLOWS.
[2019-03-27 06:52] LABS: EOSINOPHILS 2 % (0-7); LYMPHOCYTES 6 % (15-50); MONOCYTES 3 % (2-11); NEUTROPHILS 84 % (40-80); PLATELET ESTIMATE NORMAL
--- NOTE | 2019-03-27 07:29 | NUR ---
CONTACTED Rx ABOUT A VANC ORDERED AT 0800 AND A TROUGH ORDERED FOR 1100, Rx TO CHANGE THE LAB ORDER TO THIS AM BEFOR VANC DOSE
--- NOTE | 2019-03-27 08:09 | NUR ---
VANC LEVEL DRAWN AND SENT TO LAB VIA PHLEBOTAMIST
--- NOTE | 2019-03-27 08:41 | NUR ---
WILL GIVE VANC AFTER REC. LAB RESULT FOR LEVEL
--- NOTE | 2019-03-27 09:18 | NUR ---
VANC LEVEL BELOW 20 VANC DOSE GIVEN
--- NOTE | 2019-03-27 11:00 | NUR ---
NO CHANGE IN ASSESSMENT, NO NOTED DISTRESS
--- NOTE | 2019-03-27 19:00 | NUR ---
REPORT RECEIVED, CARE ASSUMED. PT IS IN BED INTUBATED AND SEDATED AT THIS TIME. PT REPOSITIONED FOR COMFORT. ORAL CARE PERFORMED. INITIAL ASSESSMENT COMPLETED, SEE FLOWSHEET FOR DETAILS. NO FURTHER NEEDS NOTED AT THIS TIME. WILL CONTINUE TO MONITOR.
--- NOTE | 2019-03-27 21:00 | NUR ---
PT IS LAYING IN BED INTUBATED AND SEDATED. PT REPOSITIONED FOR COMFORT. ORAL CARE PERFORMED. NO FURTHER NEEDS NOTED AT THIS TIME. NO SIGNS OF ACUTE DISTRESS. WILL CONTINUE TO MONITOR.
--- NOTE | 2019-03-27 23:00 | NUR ---
REASSESSMENT COMPLETED, SEE FLOWSHEET FOR DETAILS. PT IS INTUBATED AND SEDATED IN BED AT THIS TIME. PT REPOSITIONED FOR COMFORT. ORAL CARE PERFORMED. NO SIGNS OF ACUTE DISTRESS NOTED AT THIS TIME. WILL CONTINUE TO MONITOR.
[2019-03-28] VITALS (24 sets, daily range): BP systolic 109–200; BP diastolic 50–88
--- NOTE | 2019-03-28 01:00 | NUR ---
PT IS IN BED INTUBATED AND SEDATED. PT REPOSITIONED FOR COMFORT. ORAL CARE PERFORMED. NO SIGNS OF ACUTE DISTRESS AT THIS TIME. WILL CONTINUE TO MONITOR.
--- NOTE | 2019-03-28 03:00 | NUR ---
REASSESSMENT COMPLETED, SEE FLOWSHEET FOR DETAILS. PT IS INTUBATED AND SEDATED IN BED. PT REPOSITIONED FOR COMFORT. ORAL CARE PERFORMED. NO SIGNS OF ACUTE DISTRESS. WILL CONTINUE TO MONITOR.
--- NOTE | 2019-03-28 05:00 | NUR ---
PT IS INTUBATED AND SEDATED IN BED. PT GIVEN CHG BATH AND LINEN CHANGE. PT REPOSITIONED FOR COMFORT. ORAL CARE PERFORMED. NO SIGNS OF ACUTE DISTRESS. WILL CONTINUE TO MONITOR.
[2019-03-28 05:03] LABS: RBC 2.25 10x6/uL (4.00-5.40); WBC 25.1 10x3/uL (4.8-10.8)
[2019-03-28 05:04] LABS: BASOPHILS 0.2 % (0-2); EOSINOPHILS 0.6 % (0-7); HEMATOCRIT 20.3 % (36.0-48.0); HEMOGLOBIN 6.9 g/dL (12-16); IMMATURE GRANULOCYTES 5.2 % (0-5); LYMPHOCYTES 8.2 % (15-50); MCH 30.2 pg (26.0-34.0); MCHC 33.5 g/dL (31.0-37.0); MCV 90.2 fL (80.0-100.0); MEAN PLATELET VOLUME 10.1 fL (7.4-10.4); MONOCYTES 7.5 % (2-11); NEUTROPHILS 78.3 % (40-80); PLATELET COUNT 480 10x3/uL (130-400); RDW 16.5 % (11.5-14.5)
[2019-03-28 05:12] LABS: ALBUMIN 2.6 g/dL (3.4-5.0); ALKALINE PHOSPHATASE 76 U/L (46-116); ALT (SGPT) 17 U/L (10-68); BILIRUBIN - TOTAL 4.22 mg/dL (0.2-1.3); CALC OSMOLALITY 274 mosm/kg (275-300); CALCIUM 7.7 mg/dL (8.5-10.1); CARBON DIOXIDE 25.5 mmol/L (21.0-32.0); CHLORIDE - SERUM 104 mmol/L (98-107); CREATININE - SERUM 0.6 mg/dL (0.6-1.3); GLUCOSE 88 mg/dL (74-106); PHOSPHOROUS 3.2 mg/dL (2.5-4.9); POTASSIUM - SERUM 4.4 mmol/L (3.5-5.1); SODIUM 137 mmol/L (136-145); UREA NITROGEN 18 mg/dL (7-18); eGFR NON AFRICAN AMERICAN > 90 mL/min (90-120)
[2019-03-28 06:38] LABS: HEMATOCRIT 31.9 % (36.0-48.0); HEMOGLOBIN 10.7 g/dL (12-16)
--- NOTE | 2019-03-28 09:17 | NUR ---
Nutrition follow-up: Intubated, sedated ProcalAmine off today Osmolite 1.0 myra increased to 50 ml/hr today; pt is currently tolerating. Propofol continues @ 9 ml/hr labs reviewed Recommend increasing Osmolite 1.0 myra 10 ml Q 12 hours to goal rate of 75 ml/hr. RDN will monitor pts TF tolerance, wt, output closely.
--- NOTE | 2019-03-28 09:50 | NUR ---
TF RATE INCREASED TO 50 ML/HR PROCALIMINE OFF
--- NOTE | 2019-03-28 11:00 | NUR ---
CALLED DR. LOU, CONSENT RECD. FOR BRONCHOSCOPY TODAY BY DR. PASTRANA
--- NOTE | 2019-03-28 13:42 | NUR ---
WOUND VAC DRESSING CHANGE DATE: 03/28/19 WOUND LOCATION: midline abdomen WOUND MEASUREMENTS:28cm x 6cm x 3cm (improved) WOUND DESCRIPTION: red/vascular granulation noted MUSCLE, TENDON, OR BONE EXPOSED? no DRAINAGE AMOUNT/DESCRIPTION: small bloody ODOR? no TYPE OF SPONGE USED AND AMOUNT: 1 black for wound bed + 1 black for TRAC pad SETTINGS:-125mmhg low continuous TEACHING: n/a intubated/sedated
--- NOTE | 2019-03-28 14:05 | NUR ---
RIGHT GORIN ART LINE NOT IN USE, REMOVED INTAT, PRESSURE HELD AT SITE AND SAND BAG PLACED ON SITE, MINIMAL AMT. OF BLEEDING NOTED AT PRESENT.
--- NOTE | 2019-03-28 15:50 | MORECARE ---
CASE MANAGEMENT DISCHARGE SUMMARY PATIENT: JANICE FAIRCHILD UNIT: [id number] ADM DATE: 03/16/19 AGE: 73 : 46 SEX: F ROOM/BED: D.2305 AUTHOR: TYRON,DOC PHYSICIAN: REFERRING PHYSICIAN: CATA MELCHOR MD DATE OF SERVICE: 03/28/19 Discharge Plan Patient Name: JANICE FAIRCHILD Facility: [facility]:[place] : 1945 Planned Disposition: Nursing Facility [facility] Cert Anticipated Discharge Date: Discharge Date: Expected LOS: Initial Reviewer: [email or web address] Initial Review Date: 03/16/2019 Generated: 03/28/19 4:50 pm DCP- Discharge Planning Updated by [email or web address]: Kavya Lopez on 03/18/19 6:[address] CM has spoke with daughter Chelsie today. Chelsie is wanting patient to be placed in [facility] upon discharge. Chelsie doesn't realize the severity of patients condition. CM explained that patient is to have surgery today and again on Thursday. Chelsie states that her mother is very strong willed. CM explained that when patient was closer to discharge then CM would send a referral to [facility]. CM will continue to follow and assist as needed with discharge planning / needs. DCP- Discharge Planning Updated by [email or web address]: Kavya Lopez on 03/16/19 3:[address] Patient Name: JANICE FAIRCHILD Admission Status: ER Accout number: [id number] Admission Date: 03-16-2019 : 1945 Admission Diagnosis: Attending: CATA MELCHOR Current LOS: 1 Anticipated DC Date: Planned Disposition: Nursing Facility [facility] Cert Primary Insurance: MEDICARE A & B Discharge Planning Comments: CM met with patient's daughter Chelsie Pimentel [phone]. Chelsie stated that patient was in [facility] in Memory Care Unit until the last few weeks. Chelsie stated that she has been caring for her mother at home for the last 3 weeks. Chelsie states that she has realized that she is incapable of being able to care for her mother at home. Chelsie states that she does not want patient to go back to [facility]. Chelsie states that she has spoken to Teresa [facility] and would like for patient to go there but Teresa stated they don't currently have a memory care bed availability. [facility] signed for [facility] as 1st choice and 2nd choice is a facility locally with memory care unit. Chelsie stated that her mother got out of her home and was missing for 3 hours before police found her at [facility] on bench. Patient will definitely need to be in a facility that has a locked unit. CM contacted [facility], [facility], [facility] none have memory care units. [facility] will have a memory care unit opening March 28. CM contacted [facility] ([facility] [phone]) he stated they did have a memory care unit. CM sent referral to [facility]. CM will continue to follow and assist as needed with discharge planning / needs. Grease Maker Head: Kavya Lopez DCPIA - Discharge Planning Initial Assessment Updated by [email or web address]: Kavya Lopez on 03/16/19 4:24 pm * Is the patient Alert and Oriented? Yes * PCP ZULY * Preadmission Environment Home with Family * ADLs Partial Dependent * Partial ADLs (Assistance needed) Bathing Dressing Eating Medication Management Toileting Transfers * List name and contact numbers for known caregivers / representatives who currently or will assist patient after discharge: Chelsie Pimentel - daughter - [phone], * Verbal permission to speak to the caregivers and representatives has been obtained from the patient. Yes * Community resources currently utilized None * Additional services required to return to the preadmission environment? No * Can the patient safely return to the preadmission environment? Yes * Has this patient been hospitalized within the prior 30 days at any hospital? No External Providers External Provider: [facility] Next Contact Date: Service Request Date: Service Type: Resolution: Reviewer: Comments: Last DP export: 03/24/19 11:56 a Patient Name: JANICE FAIRCHILD Page [phone] at 1550 All edits/amendments must be made on the electronic document DICTATION DATE: 03/28/191548 INORGANIC CHEMIST: JAY 03/28/19 154 RPT#: [id number] DC DATE: STATUS: ADM IN [facility] [address] [place] [address] END OF REPORT
--- NOTE | 2019-03-28 17:41 | MORECARE ---
CASE MANAGEMENT DISCHARGE SUMMARY PATIENT: JANICE FAIRCHILD UNIT: [id number] ADM DATE: 03/16/19 AGE: 73 : 46 SEX: F ROOM/BED: D.2305 AUTHOR: TYRON,DOC PHYSICIAN: REFERRING PHYSICIAN: CATA MELCHOR MD DATE OF SERVICE: 03/28/19 Discharge Plan Patient Name: JANICE FAIRCHILD Facility: [facility]:[place] : 1945 Planned Disposition: Nursing Facility [facility] Cert Anticipated Discharge Date: Discharge Date: Expected LOS: Initial Reviewer: [email or web address] Initial Review Date: 03/16/2019 Generated: 03/28/19 6:41 pm Comments DCP- Discharge Planning Updated by [email or web address]: Kavya Lopez on 03/28/19 4:[address] CM received notice for LTACH placement . CM contacted Chelsie Pimentel patient's daughter regarding LTACH placement. Chelsie stated her 1st choice is [facility] and [facility]nd [facility]. CM contacted Yulia @ [facility] and faxed over records for evaluation. CM awaiting decision of approval / denial CM will continue to follow and assist as needed with discharge planning / needs. DCP- Discharge Planning Updated by [email or web address]: Kavya Lopez on 03/18/19 6:[address] CM has spoke with daughter Chelsie today. Chelsie is wanting patient to be placed in [facility] upon discharge. Chelsie doesn't realize the severity of patients condition. CM explained that patient is to have surgery today and again on Thursday. Chelsie states that her mother is very strong willed. CM explained that when patient was closer to discharge then CM would send a referral to [facility]. CM will continue to follow and assist as needed with discharge planning / needs. DCP- Discharge Planning Updated by [email or web address]: Kavya Lopez on 03/16/19 3:[address] Patient Name: JANICE FAIRCHILD Admission Status: ER Accout number: [id number] Admission Date: 03-16-2019 : 1945 Admission Diagnosis: Attending: CATA MELCHOR Current LOS: 1 Anticipated DC Date: Planned Disposition: Nursing Facility [facility] Cert Primary Insurance: MEDICARE A & B Discharge Planning Comments: CM met with patient's daughter Chelsie Pimentel [phone]. Chelsie stated that patient was in [facility] in Memory Care Unit until the last few weeks. Chelsie stated that she has been caring for her mother at home for the last 3 weeks. Chelsie states that she has realized that she is incapable of being able to care for her mother at home. Chelsie states that she does not want patient to go back to [facility]. Chelsie states that she has spoken to Teresa @ [facility] and would like for patient to go there but Teresa stated they don't currently have a memory care bed availability. [facility] signed for [facility] as 1st choice and 2nd choice is a facility locally with memory care unit. Chelsie stated that her mother got out of her home and was missing for 3 hours before police found her at [facility] on bench. Patient will definitely need to be in a facility that has a locked unit. CM contacted [facility], [facility], [facility] none have memory care units. [place] will have a memory care unit opening March 28. CM contacted [facility] ([facility] [phone]) he stated they did have a memory care unit. CM sent referral to [facility]. CM will continue to follow and assist as needed with discharge planning / needs. Cordwainer: Kavya CARREON - Discharge Planning Initial Assessment Updated by [email or web address]: Kavya Lopez on 03/16/19 4:24 pm * Is the patient Alert and Oriented? Yes * PCP ZULY * Preadmission Environment Home with Family * ADLs Partial Dependent * Partial ADLs (Assistance needed) Bathing Dressing Eating Medication Management Toileting Transfers * List name and contact numbers for known caregivers / representatives who currently or will assist patient after discharge: Chelsie Pimentel - daughter - [phone], * Verbal permission to speak to the caregivers and representatives has been obtained from the patient. Yes * Community resources currently utilized None * Additional services required to return to the preadmission environment? No * Can the patient safely return to the preadmission environment? Yes * Has this patient been hospitalized within the prior 30 days at any hospital? No Last DP export: 03/28/19 2:50 pm Patient Name: JANICE FAIRCHILD Page [phone] at 1741 All edits/amendments must be made on the electronic document DICTATION DATE: 03/28/191739 AEGIS CONSOLE OPERATOR TRACK: JAY 03/28/191739 RPT#: [id number] DC DATE: STATUS: ADM IN [facility] [address] [place] [address] END OF REPORT
--- NOTE | 2019-03-28 18:32 | MORECARE ---
CASE MANAGEMENT DISCHARGE SUMMARY PATIENT: JANICE FAIRCHILD UNIT: [id number] ADM DATE: 03/16/19 AGE: 73 : 47 SEX: F ROOM/BED: D.2305 AUTHOR: TYRON,DOC PHYSICIAN: REFERRING PHYSICIAN: CATA MELCHOR MD DATE OF SERVICE: 03/28/19 Discharge Plan Patient Name: JANICE FAIRCHILD Facility: [facility]:[place] : 1945 Planned Disposition: [facility] Facility Anticipated Discharge Date: Discharge Date: Expected LOS: Initial Reviewer: [email or web address] Initial Review Date: 03/16/2019 Generated: 03/28/19 7:32 pm Comments DCP- Discharge Planning Updated by [email or web address]: Kavya Lopez on 03/28/19 4:[address] CM received notice for LTACH placement . CM contacted Chelsie Pimentel patient's daughter regarding LTACH placement. Chelsie stated her 1st choice is [facility] and [facility]. CM contacted Yulia @ [facility] and faxed over records for evaluation. CM awaiting decision of approval / denial CM will continue to follow and assist as needed with discharge planning / needs. DCP- Discharge Planning Updated by [email or web address]: Kavya Lopez on 03/18/19 6:[address] CM has spoke with daughter Chelsie today. Chelsie is wanting patient to be placed in [facility] upon discharge. Chelsie doesn't realize the severity of patients condition. CM explained that patient is to have surgery today and again on Thursday. Chelsie states that her mother is very strong willed. CM explained that when patient was closer to discharge then CM would send a referral to [facility]. CM will continue to follow and assist as needed with discharge planning / needs. DCP- Discharge Planning Updated by [email or web address]: Kavya Lopez on 03/16/19 3:[address] Patient Name: JANICE FAIRCHILD Admission Status: ER Accout number: [id number] Admission Date: 03-16-2019 : 1945 Admission Diagnosis: Attending: CATA MELCHOR Current LOS: 1 Anticipated DC Date: Planned Disposition: Nursing Facility [facility] Cert Primary Insurance: MEDICARE A & B Discharge Planning Comments: CM met with patient's daughter Chelsie Pimentel [phone]. Chelsie stated that patient was in [facility] in Memory Care Unit until the last few weeks. Chelsie stated that she has been caring for her mother at home for the last 3 weeks. Chelsie states that she has realized that she is incapable of being able to care for her mother at home. Chelsie states that she does not want patient to go back to [facility]. Chelsie states that she has spoken to Teresa @ [facility] and would like for patient to go there but Teresa stated they don't currently have a memory care bed availability. CRISTIANO signed for [facility] as 1st choice and 2nd choice is a facility locally with memory care unit. Chelsie stated that her mother got out of her home and was missing for 3 hours before police found her at [facility] on bench. Patient will definitely need to be in a facility that has a locked unit. CM contacted [facility], [facility], [facility] none have memory care units. [facility] will have a memory care unit opening March 28. CM contacted [facility] ([facility] [phone]) he stated they did have a memory care unit. CM sent referral to [facility]. CM will continue to follow and assist as needed with discharge planning / needs. Data Integration Architect: Kavya CARREON - Discharge Planning Initial Assessment Updated by [email or web address]: Kavya Lopez on 03/16/19 4:24 pm * Is the patient Alert and Oriented? Yes * PCP ZULY * Preadmission Environment Home with Family * ADLs Partial Dependent * Partial ADLs (Assistance needed) Bathing Dressing Eating Medication Management Toileting Transfers * List name and contact numbers for known caregivers / representatives who currently or will assist patient after discharge: Chelsie Pimentel - daughter - [phone], * Verbal permission to speak to the caregivers and representatives has been obtained from the patient. Yes * Community resources currently utilized None * Additional services required to return to the preadmission environment? No * Can the patient safely return to the preadmission environment? Yes * Has this patient been hospitalized within the prior 30 days at any hospital? No Last DP export: 03/28/19 4:41 pm Patient Name: JANICE FAIRCHILD Page [phone] at 1832 All edits/amendments must be made on the electronic document DICTATION DATE: 03/28/191831 PHYSICIAN ASSISTANT SURGERY: JAY 03/28/191831 RPT#: [id number] DC DATE: STATUS: ADM IN [facility] [address] [place] [address] END OF REPORT
--- NOTE | 2019-03-28 19:00 | NUR ---
REPORT RECEIVED, CARE ASSUMED. PT IS LAYING IN BED INTUBATED AND SEDATED. PT REPOSITIONED FOR COMFORT. ORAL CARE PERFORMED. INITIAL ASSESSMENT COMPLETED, SEE FLOWSHEET FOR DETAILS. NO NEEDS NOTED AT THIS TIME. NO SIGNS OF ACUTE DISTRESS. WILL CONTINUE TO MONITOR.
--- NOTE | 2019-03-28 21:00 | NUR ---
PT IS LAYING IN BED INTUBATED AND SEDATED. PT REPOSITIONED FOR COMFORT. ORAL CARE PERFORMED. NO NEEDS NOTED AT THIS TIME. NO SIGNS OF ACUTE DISTRESS. WILL CONTINUE TO MONITOR.
--- NOTE | 2019-03-28 23:00 | NUR ---
REASSESSMENT COMPLETED, SEE FLOWSHEET FOR DETAILS. PT IS LAYING IN BED INTUBATED AND SEDATED. PT REPOSITIONED FOR COMFORT. ORAL CARE PERFORMED. NO NEEDS NOTED AT THIS TIME. NO SIGNS OF ACUTE DISTRESS. WILL CONTINUE TO MONITOR.
[2019-03-29] VITALS (22 sets, daily range): BP systolic 108–147; BP diastolic 48–71
--- NOTE | 2019-03-29 05:00 | NUR ---
PT IS IN BED INTUBATED AND SEDATED. PT REPOSITIONED IN BED FOR COMFORT. ORAL CARE PERFORMED. NO SIGNS OF ACUTE DISTRESS NOTED. WILL CONTINUE TO MONITOR.
[2019-03-29 05:15] LABS: BASOPHILS 0.4 % (0-2); EOSINOPHILS 0.9 % (0-7); HEMATOCRIT 30.9 % (36.0-48.0); HEMOGLOBIN 10.3 g/dL (12-16); IMMATURE GRANULOCYTES 2.7 % (0-5); LYMPHOCYTES 7.7 % (15-50); MCH 30.1 pg (26.0-34.0); MCHC 33.3 g/dL (31.0-37.0); MCV 90.4 fL (80.0-100.0); MEAN PLATELET VOLUME 9.8 fL (7.4-10.4); MONOCYTES 7.9 % (2-11); NEUTROPHILS 80.4 % (40-80); PLATELET COUNT 396 10x3/uL (130-400); RDW 16.3 % (11.5-14.5)
[2019-03-29 05:42] LABS: RBC 3.42 10x6/uL (4.00-5.40); WBC 15.2 10x3/uL (4.8-10.8)
[2019-03-29 05:43] LABS: APTT 34.5 SECONDS (22.8-39.4); INR 1.33 (0.85-1.17)
[2019-03-29 05:49] LABS: ALBUMIN 2.7 g/dL (3.4-5.0); ALKALINE PHOSPHATASE 76 U/L (46-116); ALT (SGPT) 17 U/L (10-68); CALC OSMOLALITY 280 mosm/kg (275-300); CALCIUM 8.1 mg/dL (8.5-10.1); CARBON DIOXIDE 28.2 mmol/L (21.0-32.0); CHLORIDE - SERUM 103 mmol/L (98-107); CREATININE - SERUM 0.6 mg/dL (0.6-1.3); GLUCOSE 103 mg/dL (74-106); MAGNESIUM - SERUM 1.9 mg/dL (1.8-2.4); PHOSPHOROUS 3.5 mg/dL (2.5-4.9); PROTEIN - SERUM 5.6 g/dL (6.4-8.2); SODIUM 139 mmol/L (136-145); UREA NITROGEN 20 mg/dL (7-18); eGFR NON AFRICAN AMERICAN > 90 mL/min (90-120)
[2019-03-29 05:55] LABS: POTASSIUM - SERUM 3.1 mmol/L (3.5-5.1)
--- NOTE | 2019-03-29 07:00 | NUR ---
REPORT RECEIVED. ASSESSMENT COMPLETE PER FLOW SHEET. VSS. REFER FOR FINDINGS. ORAL ENDOTRACH CARE ADM. REPOSITIONED FOR COMFORT. WILL CONTINUE TO MONITOR
--- NOTE | 2019-03-29 09:50 | NUR ---
DR PASTRANA AT BEDSIDE GIVEN UDPATE. NEW ORDERS RECEIVED
--- NOTE | 2019-03-29 10:12 | NUR ---
DR GUARDADO PAGED GIVEN UPDATE.
--- NOTE | 2019-03-29 10:13 | NUR ---
PAUL FROM RADIOLOGY CALLED CT OF ABD PLANNED FOR 1044
--- NOTE | 2019-03-29 11:00 | NUR ---
REASSESSMENT COMPLETE PER FLOW SHEET. VSS. NO NEW CHANGES WILL CONTINUE TO MONITOR
--- NOTE | 2019-03-29 11:50 | NUR ---
PT TO CT AT THIS TIME.
--- NOTE | 2019-03-29 12:40 | NUR ---
CORNERSTONE AT BEDSIDE GIVEN UDPATE
--- NOTE | 2019-03-29 13:15 | NUR ---
COMPLETE BB LINEN CHANGE ADM. CHG BATH ADM
--- NOTE | 2019-03-29 15:00 | NUR ---
REASSESSMENT COMPLETE PER FLOW SHEET. VSS. NO NEW CHANGES WILL CONTINUE TO MONITOR
--- NOTE | 2019-03-29 17:37 | NUR ---
DR GUARDADO AT BEDSIDE GIVEN UDPATE. NO NEW ORDERS RECEIVED.
--- NOTE | 2019-03-29 19:00 | NUR ---
REPORT RECEIVED. RECEIVED PATIENT IN BED. SEDATED/INTUBATED. HOB UP 40 DEGREES. ETT INTACT/SECURE/PATENT AND CONNECTED TO [facility] VENT WITH SETTINGS ORDERED. MONITORS CONNECTED TO PATIENT WITH ALARMS SET. VSS. SHIFT ASSESSMENT COMPLETED PER FLOW SHEET WITH NO ACUTE DISTRESS OBSERVED.
[2019-03-29 20:06] LABS: ACID FAST SMEAR Negative (()); AFB SPECIMEN PROCESSING Concentration (())
--- NOTE | 2019-03-29 21:00 | NUR ---
RESTING WITH EYES CLOSED, OPENS EYES TO VERBAL STIMULI. VSS
--- NOTE | 2019-03-29 23:00 | NUR ---
REASSESSMENT COMPLETED PER FLOW SHEET WITH NO CHANGES OR ACUTE DISTRESS OBSERVED. VSS
[2019-03-30] VITALS (22 sets, daily range): BP systolic 96–158; BP diastolic 51–101
--- NOTE | 2019-03-30 01:00 | NUR ---
RESTING WITH EYES CLOSED, ROUSES TO VERBAL STIMULI. VSS
--- NOTE | 2019-03-30 05:00 | NUR ---
RESTING WITH EYES CLOSED, EASILY ROUSED TO VERBAL STIMULI. VSS. ETT INTACT/SECURE PATENT AND CONNECTED MECH VENT ORDERED
[2019-03-30 05:05] LABS: BASOPHILS 0.2 % (0-2); EOSINOPHILS 0.8 % (0-7); HEMATOCRIT 30.8 % (36.0-48.0); HEMOGLOBIN 10.2 g/dL (12-16); IMMATURE GRANULOCYTES 2.1 % (0-5); LYMPHOCYTES 9.8 % (15-50); MCHC 33.1 g/dL (31.0-37.0); MCV 90.6 fL (80.0-100.0); MEAN PLATELET VOLUME 9.5 fL (7.4-10.4); MONOCYTES 9.4 % (2-11); NEUTROPHILS 77.7 % (40-80); PLATELET COUNT 401 10x3/uL (130-400); RDW 16.2 % (11.5-14.5); WBC 16.5 10x3/uL (4.8-10.8)
[2019-03-30 05:19] LABS: CALC OSMOLALITY 280 mosm/kg (275-300); CALCIUM 8.2 mg/dL (8.5-10.1); CARBON DIOXIDE 28.5 mmol/L (21.0-32.0); CHLORIDE - SERUM 101 mmol/L (98-107); CREATININE - SERUM 0.7 mg/dL (0.6-1.3); GLUCOSE 109 mg/dL (74-106); SODIUM 138 mmol/L (136-145); UREA NITROGEN 23 mg/dL (7-18); eGFR NON AFRICAN AMERICAN 87 mL/min (90-120)
[2019-03-30 05:33] LABS: POTASSIUM - SERUM 3.6 mmol/L (3.5-5.1)
--- NOTE | 2019-03-30 07:05 | NUR ---
REPORT RECEIVED. ASSESSMENT COMPLETE PRE FLOW SHEET. VSS. NON EW CHANGES PT RESTING COMFORTABLY WILL CONTINUE OT MONITOR
--- NOTE | 2019-03-30 09:11 | NUR ---
FAMILY CALLED GIVEN UPDATE.
--- NOTE | 2019-03-30 10:20 | NUR ---
DR PASTRANA AT BEDSIDE GIVEN UDPATE
--- NOTE | 2019-03-30 11:00 | NUR ---
REASSESSMENT COMPLETE PER FLOW SHEET. VSS. NO NEW CHANGES PT RESTING COMFORTABLY WILL CONTINUE TO MONITOR
--- NOTE | 2019-03-30 11:48 | NUR ---
Nutrition follow-up: Pt remains intubated, sedated Osmolite 1.0 myra infusing @ goal rate of 75 ml/hr via J-tube with 10 ml H2O flush Q hour Propofol @ 9 ml/hr Labs reviewed Wt: 199# RDN following.
--- NOTE | 2019-03-30 12:14 | NUR ---
DR MELCHOR AT BEDSIDE GIVEN UDPATE.
--- NOTE | 2019-03-30 14:43 | MORECARE ---
CASE MANAGEMENT DISCHARGE SUMMARY PATIENT: JANICE FAIRCHILD UNIT: [id number] ADM DATE: 03/16/19 AGE: 73 : 46 SEX: F ROOM/BED: D.2305 AUTHOR: TYRON,DOC PHYSICIAN: REFERRING PHYSICIAN: CATA MELCHOR MD DATE OF SERVICE: 03/30/19 Discharge Plan Patient Name: JANICE FAIRCHILD Facility: [facility]:[place] : 1945 Planned Disposition: Director Of Restaurants Acute Care Facility Anticipated Discharge Date: Discharge Date: Expected LOS: Initial Reviewer: [email or web address] Initial Review Date: 03/16/2019 Generated: 03/30/19 3:43 pm Comments DCP- Discharge Planning Updated by [id number]: Kavya Lopez on 03/28/19 4:[address] CM received notice for LTACH placement . CM contacted Chelsie Pimentel patient's daughter regarding LTACH placement. Chelsie stated her 1st choice is [facility] and 2nd [facility]. CM contacted Yulia @ [facility] and faxed over records for evaluation. CM awaiting decision of approval / denial CM will continue to follow and assist as needed with discharge planning / needs. DCP- Discharge Planning Updated by [email or web address]: Kavya Lopez on 03/18/19 6:[address] CM has spoke with daughter Chelsie today. Chelsie is wanting patient to be placed in [facility] upon discharge. Chelsie doesn't realize the severity of patients condition. CM explained that patient is to have surgery today and again on Thursday. Chelsie states that her mother is very strong willed. CM explained that when patient was closer to discharge then CM would send a referral to [facility]. CM will continue to follow and assist as needed with discharge planning / needs. DCP- Discharge Planning Updated by [email or web address]: Kavya Lopez on 03/16/19 3:[address] Patient Name: JANICE FAIRCHILD Admission Status: ER Accout number: [id number] Admission Date: 03-16-2019 : 1945 Admission Diagnosis: Attending: CATA MELCHOR Current LOS: 1 Anticipated DC Date: Planned Disposition: Nursing Facility [facility] Cert Primary Insurance: MEDICARE A & B Discharge Planning Comments: CM met with patient's daughter Chelsie Pimentel [phone]. Chelsie stated that patient was in [facility] in Memory Care Unit until the last few weeks. Chelsie stated that she has been caring for her mother at home for the last 3 weeks. Chelsie states that she has realized that she is incapable of being able to care for her mother at home. Chelsie states that she does not want patient to go back to [facility]. Chelsie states that she has spoken to Teresa @ [facility] and would like for patient to go there but Teresa stated they don't currently have a memory care bed availability. [facility] signed for [facility] as 1st choice and 2nd choice is a facility locally with memory care unit. Chelsie stated that her mother got out of her home and was missing for 3 hours before police found her at [facility] on bench. Patient will definitely need to be in a facility that has a locked unit. CM contacted [facility], [facility], [facility] none have memory care units. [facility] will have a memory care unit opening March 28. CM contacted [facility] ([facility] [phone]) he stated they did have a memory care unit. CM sent referral to [facility]. CM will continue to follow and assist as needed with discharge planning / needs. Wire Hanger: Kavya CARREON - Discharge Planning Initial Assessment Updated by [email or web address]: Kavya Lopez on 03/16/19 4:24 pm * Is the patient Alert and Oriented? Yes * PCP [facility] * Preadmission Environment Home with Family * ADLs Partial Dependent * Partial ADLs (Assistance needed) Bathing Dressing Eating Medication Management Toileting Transfers * List name and contact numbers for known caregivers / representatives who currently or will assist patient after discharge: Chelsie Pimentel - daughter - [phone], * Verbal permission to speak to the caregivers and representatives has been obtained from the patient. Yes * Community resources currently utilized None * Additional services required to return to the preadmission environment? No * Can the patient safely return to the preadmission environment? Yes * Has this patient been hospitalized within the prior 30 days at any hospital? No External Providers External Provider: OTHER-OTHER Next Contact Date: Service Request Date: Service Type: Resolution: Reviewer: Comments: Last DP export: 03/28/19 5:32 pm Patient Name: JANICE FAIRCHILD Page [phone] at 1443 All edits/amendments must be made on the electronic document DICTATION DATE: 03/30/191441 SHAREHOLDER: JAY 03/30/191441 RPT#: [id number] DC DATE: STATUS: ADM IN [facility] [address] [place] [address] END OF REPORT
--- NOTE | 2019-03-30 15:00 | NUR ---
REASSESSMENT COMPLETE PER FLOW SHEET. VSS. NO NEW CHANGES PT RESTING COMFORTALBY WILL CONTINUE TO MONITOR
--- NOTE | 2019-03-30 15:02 | NUR ---
WOUND VAC DRESSING CHANGE DATE: 03/30/19 WOUND LOCATION: midline abdomen WOUND MEASUREMENTS:28cm x 5cm x 2cm (improved) WOUND DESCRIPTION: red with granulation MUSCLE, TENDON, OR BONE EXPOSED? no DRAINAGE AMOUNT/DESCRIPTION: moderate sanguinous ODOR? no TYPE OF SPONGE USED AND AMOUNT: 1 black in wound bed + 1 black for TRAC pad SETTINGS:-125mmhg low continuous TEACHING: n/a sedated/intubated
[2019-03-30 15:10] LABS: FUNGUS MYCOLOGY CULTURE Preliminary report (())
--- NOTE | 2019-03-30 17:10 | NUR ---
PICC LINE REMOVED WITHOUT DIFFICULTY CATH TIP INTACT DOCUMENTATION IN CHART. WILL CONTNIUE TO MONITOR
--- NOTE | 2019-03-30 18:02 | MORECARE ---
CASE MANAGEMENT DISCHARGE SUMMARY PATIENT: JANICE FAIRCHILD UNIT: [id number] ADM DATE: 03/16/19 AGE: 73 : 46 SEX: F ROOM/BED: D.2305 AUTHOR: TYRON,DOC PHYSICIAN: REFERRING PHYSICIAN: CATA ODONNELL MD DATE OF SERVICE: 03/30/19 Discharge Plan Patient Name: JANICE FAIRCHILD Facility: [facility]:[place] : 1945 Planned Disposition: Instrument And Electrical Technician Acute Care Facility Anticipated Discharge Date: Discharge Date: Expected LOS: Initial Reviewer: [email or web address] Initial Review Date: 03/16/2019 Generated: 03/30/19 7:02 pm Comments DCP- Discharge Planning Updated by [email or web address]: Kavya Lopez on 03/30/19 4:[address] CM [facility] with [facility] after multiple attempts. CM checking on status of referral. Ricardo stated that the accepting physician was concerned that the patient may require additional surgery since WBC are elevated. Ricardo asked if our surgeon would be willing to do P2P to discuss patient. CM called Dr. Alvarenga to see if he would be willing to do P2P. Dr. Alvarenga stated that he would be willing to do P2P and would agree to take patient back if she should need further surgery. CM relayed this information to Ricardo and faxed updated records. Dr. Odonnell had spoke with someone from [facility] earlier today and he stated that [facility]'s physicians are off on vacation until next week. Dr. Odonnell stated to send out referrals to other LTACH facilities. CM spoke with daughter Chelsie and explained that CM would be sending out referrals to other facilities since patient has failed weaning off vent and will most likely need trach soon. [facility] referral sent. CM awaiting decisions from facilities. CM will continue to follow and assist as needed with discharge planning / needs. DCP- Discharge Planning Updated by [email or web address]: Kavya Lopez on 03/28/19 4:[address] CM received notice for LTACH placement . CM contacted Chelsie Pimentel patient's daughter regarding LTACH placement. Chelsie stated her 1st choice is [facility] and 2nd [facility]. CM contacted Yulia @ [facility] and faxed over records for evaluation. CM awaiting decision of approval / denial CM will continue to follow and assist as needed with discharge planning / needs. DCP- Discharge Planning Updated by [email or web address]: Kavya Lopez on 03/18/19 6:[address] CM has spoke with daughter Chelsie today. Chelsie is wanting patient to be placed in [facility] upon discharge. Chelsie doesn't realize the severity of patients condition. CM explained that patient is to have surgery today and again on Thursday. Chelsie states that her mother is very strong willed. CM explained that when patient was closer to discharge then CM would send a referral to [facility]. CM will continue to follow and assist as needed with discharge planning / needs. DCP- Discharge Planning Updated by [email or web address]: Kavya Lopez on 03/16/19 3:[address] Patient Name: JANICE FAIRCHILD Admission Status: ER Accout number: [id number] Admission Date: 03-16-2019 : 1945 Admission Diagnosis: Attending: CATA ODONNELL Current LOS: 1 Anticipated DC Date: Planned Disposition: Nursing Facility [facility] Primary Insurance: MEDICARE A & B Discharge Planning Comments: CM met with patient's daughter Chelsie Pimentel [phone]. Chelsie stated that patient was in [facility] in Memory Care Unit until the last few weeks. Chelsie stated that she has been caring for her mother at home for the last 3 weeks. Chelsie states that she has realized that she is incapable of being able to care for her mother at home. Chelsie states that she does not want patient to go back to [facility]. Chelsie states that she has spoken to Teresa @ [facility] and would like for patient to go there but Teresa stated they don't currently have a memory care bed availability. [facility] signed for [facility] as 1st choice and 2nd choice is a facility locally with memory care unit. Chelsie stated that her mother got out of her home and was missing for 3 hours before police found her at [facility] on bench. Patient will definitely need to be in a facility that has a locked unit. CM contacted [facility], [facility], [facility] none have memory care units. [facility] will have a memory care unit opening March 28. CM contacted [facility] ([facility] [phone]) he stated they did have a memory care unit. CM sent referral to [facility]. CM will continue to follow and assist as needed with discharge planning / needs. Senior Internal Auditor: Kavya CARREON - Discharge Planning Initial Assessment Updated by [id number]: Kavya Lopez on 03/16/19 4:24 pm * Is the patient Alert and Oriented? Yes * PCP ZULY * Preadmission Environment Home with Family * ADLs Partial Dependent * Partial ADLs (Assistance needed) Bathing Dressing Eating Medication Management Toileting Transfers * List name and contact numbers for known caregivers / representatives who currently or will assist patient after discharge: Chelsie Pimentel - daughter - [phone], * Verbal permission to speak to the caregivers and representatives has been obtained from the patient. Yes * Community resources currently utilized None * Additional services required to return to the preadmission environment? No * Can the patient safely return to the preadmission environment? Yes * Has this patient been hospitalized within the prior 30 days at any hospital? No Last DP export: 03/30/19 1:43 pm Patient Name: JANICE FAIRCHILD Page 23536 at 1802 All edits/amendments must be made on the electronic document DICTATION DATE: 03/30/191800 SUPERVISOR CELL EFFICIENCY: JAY 03/30/191800 RPT#: [id number] DC DATE: STATUS: ADM IN [facility] [address] [place] [address] END OF REPORT
--- NOTE | 2019-03-30 19:00 | NUR ---
REPORT RECEIVED. RECEIVED PATIENT IN BED SEDATED/VENTILATED. ETT SECURED/PATENT/ CONNECTED TO [facility] VENT AT ORDERED SETTINGS. HOB UP 40 DEGREES. MONITORS CONNECTED TO PATIENT WITH ALARMS SET. VSS.
--- NOTE | 2019-03-30 21:00 | NUR ---
RESTING WITH EYES CLOSED, ROUSES EASILY TO VERBAL STIMULI. VSS
--- NOTE | 2019-03-30 23:00 | NUR ---
REASSESSMENT COMPLETED PER FLOW SHEET. VSS
[2019-03-31] VITALS (24 sets, daily range): BP systolic 82–142; BP diastolic 48–71
--- NOTE | 2019-03-31 01:00 | NUR ---
RESTING WITH EYES CLOSED, ROUSES EASILY TO VERBAL STIMULI. VSS
--- NOTE | 2019-03-31 03:00 | NUR ---
REASSESSMENT COMPLETED PER FLOW SHEET WITH NO CHANGES OR ACUTE DISTRESS OBSERVED. VSS
--- NOTE | 2019-03-31 05:00 | NUR ---
RESTING WITH EYES CLOSED, EASILY ROUSED TO VERBAL STIMULI. VSS
[2019-03-31 05:59] LABS: ANION GAP 11.3 mmol/L (8-16); CALCIUM 8.1 mg/dL (8.5-10.1); CREATININE - SERUM 0.8 mg/dL (0.6-1.3); POTASSIUM - SERUM 3.3 mmol/L (3.5-5.1); VANCOMYCIN - RANDOM 23.3 ug/mL (10.0-20.0)
[2019-03-31 06:26] LABS: BASOPHILS 0.5 % (0-2); HEMATOCRIT 31.9 % (36.0-48.0); HEMOGLOBIN 10.4 g/dL (12-16); IMMATURE GRANULOCYTES 3.2 % (0-5); LYMPHOCYTES 14.8 % (15-50); MCH 29.8 pg (26.0-34.0); MCHC 32.6 g/dL (31.0-37.0); MCV 91.4 fL (80.0-100.0); MEAN PLATELET VOLUME 10.3 fL (7.4-10.4); NEUTROPHILS 69.5 % (40-80); PLATELET COUNT 418 10x3/uL (130-400); RBC 3.49 10x6/uL (4.00-5.40); RDW 16.6 % (11.5-14.5); WBC 13.6 10x3/uL (4.8-10.8)
--- NOTE | 2019-03-31 07:00 | NUR ---
RECEIVED REPORT. PT RESTING IN BED C VSSS.
--- NOTE | 2019-03-31 09:00 | NUR ---
VSS. NO CHANGES. CHANGED OUT KANGAROO PUMP TUBING.
--- NOTE | 2019-03-31 11:00 | NUR ---
CHANGED COCCYGEAL DRESSING. STAGE TWO WOUND. TURNED TO OTHER SIDE.
--- NOTE | 2019-03-31 13:17 | MORECARE ---
CASE MANAGEMENT DISCHARGE SUMMARY PATIENT: JANICE FAIRCHILD UNIT: [id number] ADM DATE: 03/16/19 AGE: 73 : 46 SEX: F ROOM/BED: D.2305 AUTHOR: TYRON,DOC PHYSICIAN: REFERRING PHYSICIAN: CATA ODONNELL MD DATE OF SERVICE: 03/31/19 Discharge Plan Patient Name: JANICE FAIRCHILD Facility: [facility]:[place] : 1945 Planned Disposition: Boom Supervisor Acute Care Facility Anticipated Discharge Date: Discharge Date: Expected LOS: Initial Reviewer: [email or web address] Initial Review Date: 03/16/2019 Generated: 03/31/19 2:17 pm Comments DCP- Discharge Planning Updated by [email or web address]: Alfie Ortez on 03/31/19 12:[address] Patient Name: JANICE FAIRCHILD Encounter No: [id number] : 1945 Primary Insurance: MEDICARE A & B Anticipated DC Date: Planned Disposition: Boom Supervisor Acute Care Facility External Planned Provider: [facility] DCP follow-up note: CM RECEIVED REQUEST FROM ICU NURSE SHERYL FOR UPDATE ON PLACEMENT. CM CALLED [facility], , SPOKE TO ROLANDA WHO INFORMED CM THAT SHE HAD TALKED TO VALERIE IN ICU WHO IS FAXING [employer] AND TODAYS DOCTOR NOTE TO [facility] NEEDS DR. BELLAMY PHONE NUMBER FOR PEER TO PEER. CM VERIFIED THAT INFORMATION HAD BEEN FAXED BY VALERIE OF ICU. CM NOTIFIED DR. ODONNELL AND OBTAINED PHONE NUMBER FOR PEER TO PEER. CM PROVIDED DR. ODONNELL'S NUMBER TO LOKESH OF [facility] FOR PEER TO PEER. CM WAITING PEER TO PEER TO BE COMPLETED BETWEEN [facility] PHYSICIAN AND DR. ODONNELL WELL ADMISSION DETERMINATION FOR LONG-TERM ACUTE CARE PLACEMENT. Alfie Ortez, CAROL ROCA DCP- Discharge Planning Updated by [id number]: Kavya Lopez on 03/30/19 4:[address] [facility] after multiple attempts. CM checking on status of referral. Ricardo stated that the accepting physician was concerned that the patient may require additional surgery since WBC are elevated. Ricardo asked if our surgeon would be willing to do P2P to discuss patient. CM called Dr. Alvarenga to see if he would be willing to do P2P. Dr. Alvarenga stated that he would be willing to do P2P and would agree to take patient back if she should need further surgery. CM relayed this information to Ricardo and faxed updated records. Dr. Odonnell had spoke with someone from [facility] earlier today and he stated that [facility]'s physicians are off on vacation until next week. Dr. Odonnell stated to send out referrals to other LTACH facilities. CM spoke with daughter Chelsie and explained that CM would be sending out referrals to other facilities since patient has failed weaning off vent and will most likely need trach soon. [facility] referral sent. CM awaiting decisions from facilities. CM will continue to follow and assist as needed with discharge planning / needs. DCP- Discharge Planning Updated by [email or web address]: Kavya Lopez on 03/28/19 4:[address] CM received notice for LTACH placement . CM contacted Chelsie Pimentel patient's daughter regarding LTACH placement. Chelsie stated her 1st choice is [facility] and 2nd [facility]. CM contacted Yulia @ [facility] and faxed over records for evaluation. CM awaiting decision of approval / denial CM will continue to follow and assist as needed with discharge planning / needs. DCP- Discharge Planning Updated by [email or web address]: Kavya Lopez on 03/18/19 6:[address] CM has spoke with daughter Chelsie today. Chelsie is wanting patient to be placed in [facility] upon discharge. Chelsie doesn't realize the severity of patients condition. CM explained that patient is to have surgery today and again on Thursday. Chelsie states that her mother is very strong willed. CM explained that when patient was closer to discharge then CM would send a referral to [facility]. CM will continue to follow and assist as needed with discharge planning / needs. DCP- Discharge Planning Updated by [email or web address]: Kavya Lopez on 03/16/19 3:[address] Patient Name: JANICE FAIRCHILD Admission Status: ER Accout number: [id number] Admission Date: 03-16-2019 : 1945 Admission Diagnosis: Attending: CATA ODONNELL Current LOS: 1 Anticipated DC Date: Planned Disposition: Nursing Facility [facility] Cert Primary Insurance: MEDICARE A & B Discharge Planning Comments: CM met with patient's daughter Chelsie Pimentel [phone]. Chelsie stated that patient was in [facility] in Memory Care Unit until the last few weeks. Chelsie stated that she has been caring for her mother at home for the last 3 weeks. Chelsie states that she has realized that she is incapable of being able to care for her mother at home. Chelsie states that she does not want [facility]. Chelsie states that she has spoken to Teresa @ [facility] and would like for patient to go there but Teresa stated they don't currently have a memory care bed availability. [facility] signed for [facility] as 1st choice and 2nd choice is a facility locally with memory care unit. Chelsie stated that her mother got out of her home and was missing for 3 hours before police found her at [facility] on bench. Patient will definitely need to be in a facility that has a locked unit. CM contacted [facility], [facility], [facility] none have memory care units. [facility] will have a memory care unit opening March 28. CM contacted [facility] ([facility] [phone]) he stated they did have a memory care unit. CM sent referral to [facility]. CM will continue to follow and assist as needed with discharge planning / needs. Firer Boiler: Kavya Lopez DCPIA - Discharge Planning Initial Assessment Updated by [email or web address]: Kavya Lopez on 03/16/19 4:24 pm * Is the patient Alert and Oriented? Yes * PCP ZULY * Preadmission Environment Home with Family * ADLs Partial Dependent * Partial ADLs (Assistance needed) Bathing Dressing Eating Medication Management Toileting Transfers * List name and contact numbers for known caregivers / representatives who currently or will assist patient after discharge: Chelsie Pimentel - daughter - [phone], * Verbal permission to speak to the caregivers and representatives has been obtained from the patient. Yes * Community resources currently utilized None * Additional services required to return to the preadmission environment? No * Can the patient safely return to the preadmission environment? Yes * Has this patient been hospitalized within the prior 30 days at any hospital? No Last DP export: 03/30/19 5:02 pm Patient Name: JANICE FAIRCHILD Page [id number] at 1317 All edits/amendments must be made on the electronic document DICTATION DATE: 03/31/191316 POTATO PEELER: JAY 03/31/191316 RPT#: [id number] DC DATE: STATUS: ADM IN [facility] [address] [place] [address] END OF REPORT
--- NOTE | 2019-03-31 13:35 | MORECARE ---
CASE MANAGEMENT DISCHARGE SUMMARY PATIENT: JANICE FAIRCHILD UNIT: [id number] ADM DATE: 03/16/19 AGE: 73 : 47 SEX: F ROOM/BED: D.2305 AUTHOR: TYRON,DOC PHYSICIAN: REFERRING PHYSICIAN: ACTA ODONNELL MD DATE OF SERVICE: 03/31/19 Discharge Plan Patient Name: JANICE FAIRCHILD Facility: [facility]:[place] : 1945 Planned Disposition: Fpc Acute Care Facility Anticipated Discharge Date: Discharge Date: Expected LOS: Initial Reviewer: [email or web address] Initial Review Date: 03/16/2019 Generated: 03/31/19 2:35 pm Comments DCP- Discharge Planning Updated by [email or web address]: Alfie Ortez on 03/31/19 12:[address] Patient Name: JANICE FAIRCHILD Encounter No: [id number] : 1945 Primary Insurance: MEDICARE A & B Anticipated DC Date: Planned Disposition: Drier Transfer Car Operator Acute Care Facility External Planned Provider: [facility] DCP follow-up note: CM RECEIVED REQUEST FROM ICU NURSE SHERYL FOR UPDATE ON PLACEMENT. CM CALLED [facility], , SPOKE TO ROLANDA WHO INFORMED CM THAT SHE HAD TALKED TO VALERIE IN ICU WHO IS FAXING CULTURE RESULTS AND TODAYS DOCTOR NOTE TO [facility], [facility] NEEDS DR. BELLAMY PHONE NUMBER FOR PEER TO PEER. CM VERIFIED THAT INFORMATION HAD BEEN FAXED BY VALERIE OF ICU. CM NOTIFIED DR. ODONNELL AND OBTAINED PHONE NUMBER FOR PEER TO PEER. CM PROVIDED DR. ODONNELL'S NUMBER TO LOKESH OF [facility] FOR PEER TO PEER. CM WAITING PEER TO PEER TO BE COMPLETED BETWEEN [facility] PHYSICIAN AND DR. ODONNELL WELL ADMISSION DETERMINATION FOR EDUCATIONAL RESOURCE COORDINATOR ACUTE CARE PLACEMENT. Alfie Ortez, CASE MANAGEMENT Appended by Alfie Ortez on 03/31/2019 13:26 CDT: CM RECEIVED CALL FROM LOKESH [facility], , WHO ADVISED THAT DR. MARGARITA RICCI FROM [facility] WILL CALL DR. ODONNELL TOMORROW, 04-01-19; THEY WANT TO MAKE SURE PT IS STABLE AND DOES NOT NEED FURTHER SURGERY. DR. HEAD NOTIFIED OF PENDING CALL TOMORROW. CM WAITING PEER TO PEER TO BE COMPLETED BETWEEN [facility] PHYSICIAN AND DR. ODONNELL WELL ADMISSION DETERMINATION FOR HALF-WAY ACUTE CARE PLACEMENT. Alfie Ortez, CASE MANAGEMENT DCP- Discharge Planning Updated by [id number]: Kavya Lopez on 03/30/19 4:[address] CM [facility] with [facility] after multiple attempts. CM checking on status of referral. Ricardo stated that the accepting physician was concerned that the patient may require additional surgery since WBC are elevated. Ricardo asked if our surgeon would be willing to do P2P to discuss patient. CM called Dr. Alvarenga to see if he would be willing to do P2P. Dr. Alvarenga stated that he would be willing to do P2P and would agree to take patient back if she should need further surgery. CM relayed this information to Ricardo and faxed updated records. Dr. Odonnell had spoke with someone from [facility] earlier today and he stated that [facility]'s physicians are off on vacation until next week. Dr. Odonnell stated to send out referrals to other LTACH facilities. CM spoke with daughter Chelsie and explained that CM would be sending out referrals to other facilities since patient has failed weaning off vent and will most likely need trach soon. [facility] referral sent. CM awaiting decisions from facilities. CM will continue to follow and assist as needed with discharge planning / needs. DCP- Discharge Planning Updated by [id number]: Kavya Lopez on 03/28/19 4:[address] CM received notice for LTACH placement . CM contacted Chelsie Pimentel patient's daughter regarding LTACH placement. Chelsie stated her 1st choice is [facility] and 2nd [facility]. CM contacted Yulia @ [facility] and faxed over records for evaluation. CM awaiting decision of approval / denial CM will continue to follow and assist as needed with discharge planning / needs. DCP- Discharge Planning Updated by [id number]: Kavya Lopez on 03/18/19 6:[address] CM has spoke with daughter Chelsie today. Chelsie is wanting patient to be placed in [facility] upon discharge. Chelsie doesn't realize the severity of patients condition. CM explained that patient is to have surgery today and again on Thursday. Chelsie states that her mother is very strong willed. CM explained that when patient was closer to discharge then CM would send a referral to [facility]. CM will continue to follow and assist as needed with discharge planning / needs. DCP- Discharge Planning Updated by [id number]: Kavya Lopez on 03/16/19 3:[address] Patient Name: JANICE FAIRCHILD Admission Status: ER Accout number: [id number] Admission Date: 03-16-2019 : 1945 Admission Diagnosis: Attending: CATA ODONNELL Current LOS: 1 Anticipated DC Date: Planned Disposition: Nursing Facility [facility] Primary Insurance: MEDICARE A & B Discharge Planning Comments: CM met with patient's daughter Chelsie Pimentel [phone]. Chelsie stated that patient was in [facility] in Memory Care Unit until the last few weeks. Chelsie stated that she has been caring for her mother at home for the last 3 weeks. Chelsie states that she has realized that she is incapable of being able to care for her mother at home. Chelsie states that she does not want patient to go back to [facility]. Chelsie states that she has spoken to Teresa @ [email or web address] and would like for patient to go there but Teresa stated they don't currently have a memory care bed availability. [facility] signed for [email or web address] as 1st choice and 2nd choice is a facility locally with memory care unit. Chelsie stated that her mother got out of her home and was missing for 3 hours before police found her at [facility] on bench. Patient will definitely need to be in a facility that has a locked unit. CM contacted [facility], [facility], [facility] none have memory care units. [facility] will have a memory care unit opening March 28. CM contacted [facility] ([facility] [phone]) he stated they did have a memory care unit. CM sent referral to [facility]. CM will continue to follow and assist as needed with discharge planning / needs. Development Vice President: Kavya Lopez DCPIA - Discharge Planning Initial Assessment Updated by [email or web address]: Kavya Lopez on 03/16/19 4:24 pm * Is the patient Alert and Oriented? Yes * PCP ZULY * Preadmission Environment Home with Family * ADLs Partial Dependent * Partial ADLs (Assistance needed) Bathing Dressing Eating Medication Management Toileting Transfers * List name and contact numbers for known caregivers / representatives who currently or will assist patient after discharge: Chelsie Pimentel - daughter - [phone], * Verbal permission to speak to the caregivers and representatives has been obtained from the patient. Yes * Community resources currently utilized None * Additional services required to return to the preadmission environment? No * Can the patient safely return to the preadmission environment? Yes * Has this patient been hospitalized within the prior 30 days at any hospital? No Last DP export: 03/31/19 12:17 pm Patient Name: JANICE FAIRCHILD Page [phone] at 1335 All edits/amendments must be made on the electronic document DICTATION DATE: 03/31/191333 PRECONSTRUCTION MANAGER: JAY 03/31/191333 RPT#: [id number] DC DATE: STATUS: ADM IN [facility] [address] [place] [address] END OF REPORT
--- NOTE | 2019-03-31 13:55 | MORECARE ---
CASE MANAGEMENT DISCHARGE SUMMARY PATIENT: JANICE FAIRCHILD UNIT: [id number] ADM DATE: 03/16/19 AGE: 73 : 47 SEX: F ROOM/BED: D.2305 AUTHOR: TYRON,DOC PHYSICIAN: REFERRING PHYSICIAN: CATA ODONNELL MD DATE OF SERVICE: 03/31/19 Discharge Plan Patient Name: JANICE FAIRCHILD Facility: [facility]:[place] : 1945 Planned Disposition: Fpc Acute Care Facility Anticipated Discharge Date: 04/01/19 Discharge Date: Expected LOS: 16 Initial Reviewer: [email or web address] Initial Review Date: 03/16/2019 Generated: 03/31/19 2:55 pm Comments DCP- Discharge Planning Updated by [id number]: Alfie Ortez on 03/31/19 12:[address] Patient Name: JANICE FAIRCHILD Encounter No: [id number] : 1945 Primary Insurance: MEDICARE A & B Anticipated DC Date: Planned Disposition: Bookkeeper Receptionist Acute Care Facility External Planned Provider: [facility] DCP follow-up note: CM RECEIVED REQUEST FROM ICU NURSE SHERYL FOR UPDATE ON PLACEMENT. CM CALLED [facility], , SPOKE TO ROLANDA WHO INFORMED CM THAT SHE HAD TALKED TO VALERIE IN ICU WHO IS FAXING CULTURE RESULTS AND TODAYS DOCTOR NOTE TO [facility], [facility] NEEDS DR. BELLAMY PHONE NUMBER FOR PEER TO PEER. CM VERIFIED THAT INFORMATION HAD BEEN FAXED BY VALERIE OF ICU. CM NOTIFIED DR. ODONNELL AND OBTAINED PHONE NUMBER FOR PEER TO PEER. CM PROVIDED DR. ODONNELL'S NUMBER TO LOKESH OF [facility] FOR PEER TO PEER. CM WAITING PEER TO PEER TO BE COMPLETED BETWEEN [facility] PHYSICIAN AND DR. ODONNELL WELL ADMISSION DETERMINATION FOR TEACHER VOCATIONAL TRAINING ACUTE CARE PLACEMENT. Alfie Ortez, CASE MANAGEMENT Appended by Alfie Ortez on 03/31/2019 13:26 CDT: CM RECEIVED CALL FROM LOKESH OF [facility], , WHO ADVISED THAT DR. MARGARITA RICCI FROM [facility] WILL CALL DR. ODONNELL TOMORROW, 04-01-19; THEY WANT TO MAKE SURE PT IS STABLE AND DOES NOT NEED FURTHER SURGERY. DR. HEAD NOTIFIED OF PENDING CALL TOMORROW. CM WAITING PEER TO PEER TO BE COMPLETED BETWEEN [facility] PHYSICIAN AND DR. ODONNELL WELL ADMISSION DETERMINATION FOR TEACHER VOCATIONAL TRAINING ACUTE CARE PLACEMENT. Alfie Ortez, CASE MANAGEMENT DCP- Discharge Planning Updated by [id number]: Kavya Lopez on 03/30/19 4:[address] CM spoke with Ricardo Farias ([facility] ) after multiple attempts. CM checking on status of referral. Ricardo stated that the accepting physician was concerned that the patient may require additional surgery since WBC are elevated. Ricardo asked if our surgeon would be willing to do P2P to discuss patient. CM called Dr. Alvarenga to see if he would be willing to do P2P. Dr. Alvarenga stated that he would be willing to do P2P and would agree to take patient back if she should need further surgery. CM relayed this information to Ricardo and faxed updated records. Dr. Odonnell had spoke with someone from [facility] earlier today and he stated that [facility]'s physicians are off on vacation until next week. Dr. Odonnell stated to send out referrals to other LTACH facilities. CM spoke with daughter Chelsie and explained that CM would be sending out referrals to other facilities since patient has failed weaning off vent and will most likely need trach soon. [facility] referral sent. CM awaiting decisions from facilities. CM will continue to follow and assist as needed with discharge planning / needs. DCP- Discharge Planning Updated by [id number]: Kavya Lopez on 03/28/19 4:[address] CM received notice for LTACH placement . CM contacted Chelsie Pimentel patient's daughter regarding LTACH placement. Chelsie stated her 1st choice is [facility] and 2nd [facility]. CM contacted Yulia @ [facility] and faxed over records for evaluation. CM awaiting decision of approval / denial CM will continue to follow and assist as needed with discharge planning / needs. DCP- Discharge Planning Updated by [id number]: Kavya Lopez on 03/18/19 6:[address] CM has spoke with daughter Chelsie today. Chelsie is wanting patient to be placed in [facility] upon discharge. Chelsie doesn't realize the severity of patients condition. CM explained that patient is to have surgery today and again on Thursday. Chelsie states that her mother is very strong willed. CM explained that when patient was closer to discharge then CM would send a referral to [facility]. CM will continue to follow and assist as needed with discharge planning / needs. DCP- Discharge Planning Updated by [id number]: Kavya Lopez on 03/16/19 3:[address] Patient Name: JANICE FAIRCHILD Admission Status: ER Accout number: [id number] Admission Date: 03-16-2019 : 1945 Admission Diagnosis: Attending: CATA ODONNELL Current LOS: 1 Anticipated DC Date: Planned Disposition: Nursing Facility [facility] Primary Insurance: MEDICARE A & B Discharge Planning Comments: CM met with patient's daughter Chelsie Pimentel [phone]. Chelsie stated that patient was in [facility] in Memory Care Unit until the last few weeks. Chelsie stated that she has been caring for her mother at home for the last 3 weeks. Chelsie states that she has realized that she is incapable of being able to care for her mother at home. Chelsie states that she does not want patient to go back to [facility]. Chelsie states that she has spoken to Teresa @ [facility] and would like for patient to go there but Teresa stated they don't currently have a memory care bed availability. [facility] signed for [place] as 1st choice and 2nd choice is a facility locally with memory care unit. Chelsie stated that her mother got out of her home and was missing for 3 hours before police found her at [facility] on bench. Patient will definitely need to be in a facility that has a locked unit. CM contacted [facility], [facility], [facility] none have memory care units. [facility] will have a memory care unit opening March 28. CM contacted [facility], [facility] ([facility] [phone]) he stated they did have a memory care unit. CM sent referral to [facility]. CM will continue to follow and assist as needed with discharge planning / needs. Outboard Technician: Kavya Lopez DCPIA - Discharge Planning Initial Assessment Updated by [id number]: Kavya Lopez on 03/16/19 4:24 pm * Is the patient Alert and Oriented? Yes * PCP ZULY * Preadmission Environment Home with Family * ADLs Partial Dependent * Partial ADLs (Assistance needed) Bathing Dressing Eating Medication Management Toileting Transfers * List name and contact numbers for known caregivers / representatives who currently or will assist patient after discharge: Chelsie Pimentel - daughter - [phone], * Verbal permission to speak to the caregivers and representatives has been obtained from the patient. Yes * Community resources currently utilized None * Additional services required to return to the preadmission environment? No * Can the patient safely return to the preadmission environment? Yes * Has this patient been hospitalized within the prior 30 days at any hospital? No Last DP export: 03/31/19 12:35 pm Patient Name: JANICE FAIRCHILD Page 49527 at 1355 All edits/amendments must be made on the electronic document DICTATION DATE: 03/31/19 1351 BALLER TENDER: JAY 03/31/19 1354 RPT#: [id number] DC DATE: STATUS: ADM IN [facility] [address] [place] [address] END OF REPORT
--- NOTE | 2019-03-31 14:14 | NUR ---
PT HAD INCONTINENT BM. NURSES CLEANED AND CHANGED ALL LINENS AND GOWN. GAVE FULL HIBBA CLEANSE BATH.
--- NOTE | 2019-03-31 15:53 | NUR ---
RIGHT ABDOMINAL DUODENAL STUMP DRAIN LEAKING BILE CONTENTS UNDERNEATH COLOSTOMY BAG. UNABLE TO REPLACE COLOSTOMY BAG BECAUSE WE DONT HAVE THE RIGHT KIND. REINFORCED ADHESIVE PART WITH TEGADERM AND OTHER TAPE. VERIFIED THAT IT IS OKAY WITH DR. GIORDANO.
--- NOTE | 2019-03-31 17:00 | NUR ---
CHANGED DRESSINGS AROUND ABDOMINAL DRAINS
[2019-03-31 18:06] LABS: FUNGUS STAIN Final report (())
--- NOTE | 2019-03-31 19:00 | NUR ---
REPORT REC'D, PT'S CARE ASSUMED. ASSESSMENT COMPLETED PER FLOWSHEETS. PT SEDATED ON VENT OPENS EYES WITH VOICES. SR ON CM WITH HR AT 84, LUNG SOUNDS CRACKLES TO ULB WITH DIMINISHED TO LLB, UNLABORED. ABD MIDLINE WOUND VAC INTACT TO SUX, RT PINROSE DRAINAGE WITH GREEN DRAINGE AROUND INSERTION SITE, CLEANED AND DRESSING CHANGED. LEFT GTUBE TO GRAVITY WITH DRAINGE AROUND TUBE NOTED. SKIN CARE AND DRESSING CHANGED.MARIA INTACT TO GRAVITY. PPP. WILL CONT TO MONITOR.
--- NOTE | 2019-03-31 21:00 | NUR ---
REPOSITIONED PT FOR COMFORT. MOUTH CARE PROVIDED PER VAP.HOB UP. SIDE RAILS UP. NO VISITORS AT THIS TIME. CPOC.
--- NOTE | 2019-03-31 23:00 | NUR ---
REASSESSMENT COMPLETED PER FLOWSHEETS. NO ACUTE CHANGES NOTED IN PTS CONDITION. VSS. CPOC.
[2019-04-01] VITALS (15 sets, daily range): BP systolic 104–168; BP diastolic 53–69
--- NOTE | 2019-04-01 01:00 | NUR ---
PT INCONTINENT OF STOOL,LIQUID DARK BROWN,COMPLETED BATH, HCG BATH DONE, SKIN CRE DONE, DRESSING CHANGED, LINEN AND GOWN CHANGED. MOUTH CARE DONE. CONT SEDATION FOR PT'S COMFORT ON VENT. HOB UP. SIDE RAILS UP. REPOSITIONED FOR COMFORT. CPOC.
--- NOTE | 2019-04-01 03:00 | NUR ---
REASSESSMENT COMPLETED PER FLOWSHEETS. PT SEDATED ON VENT WITHOUT DISTRESS. VSS.
[2019-04-01 03:49] LABS: BASOPHILS 0.4 % (0-2); EOSINOPHILS 1.7 % (0-7); HEMATOCRIT 31.3 % (36.0-48.0); IMMATURE GRANULOCYTES 1.5 % (0-5); MCH 29.7 pg (26.0-34.0); MCHC 31.9 g/dL (31.0-37.0); MCV 92.9 fL (80.0-100.0); MEAN PLATELET VOLUME 9.5 fL (7.4-10.4); MONOCYTES 11.1 % (2-11); NEUTROPHILS 72.3 % (40-80); PLATELET COUNT 408 10x3/uL (130-400); RBC 3.37 10x6/uL (4.00-5.40); RDW 16.4 % (11.5-14.5); WBC 14.9 10x3/uL (4.8-10.8)
[2019-04-01 04:11] LABS: ALBUMIN 2.5 g/dL (3.4-5.0); ALKALINE PHOSPHATASE 86 U/L (46-116); ALT (SGPT) 20 U/L (10-68); BILIRUBIN - TOTAL 2.09 mg/dL (0.2-1.3); CALC OSMOLALITY 286 mosm/kg (275-300); CALCIUM 7.9 mg/dL (8.5-10.1); CARBON DIOXIDE 30.8 mmol/L (21.0-32.0); CHLORIDE - SERUM 104 mmol/L (98-107); CREATININE - SERUM 0.6 mg/dL (0.6-1.3); GLUCOSE 104 mg/dL (74-106); POTASSIUM - SERUM 3.5 mmol/L (3.5-5.1); PROTEIN - SERUM 5.9 g/dL (6.4-8.2); SODIUM 142 mmol/L (136-145); UREA NITROGEN 25 mg/dL (7-18); eGFR NON AFRICAN AMERICAN > 90 mL/min (90-120)
--- NOTE | 2019-04-01 04:30 | NUR ---
I&O COMPLETED TO CHART.
--- NOTE | 2019-04-01 08:07 | NUR ---
Nutrition follow-up: Pt intubated, sedated Osmolite 1.0 myra @ 75 ml/hr 10 ml H2O flush Q hr +BM, loose Pt tolerating TF RDN following.
--- NOTE | 2019-04-01 11:25 | NUR ---
WOUND CARE NURSE AT BEDSIDE CHANGING WOUND VAC
--- NOTE | 2019-04-01 11:46 | NUR ---
WOUND VAC DRESSING CHANGE DATE: 04/01/19 WOUND LOCATION: midline abdomen WOUND MEASUREMENTS: 28cm x 6cm x 3cm (no change) WOUND DESCRIPTION: red/granulation noted MUSCLE, TENDON, OR BONE EXPOSED? no DRAINAGE AMOUNT/DESCRIPTION: small bloody ODOR? no TYPE OF SPONGE USED AND AMOUNT: 1 black for wound bed + 1 black for TRAC pad SETTINGS: -125mmhg low continuous TEACHING: n/a sedated/intubated
--- NOTE | 2019-04-01 14:03 | NUR ---
REPORT CALLED TO KARINA WILCOX RN AT [facility]. PT HAS BEEN GIVEN FULL BATH AND DRESSINGS TO SABINOUBE AND JTUBE REPLACED.
--- NOTE | 2019-04-01 16:28 | MORECARE ---
CASE MANAGEMENT DISCHARGE SUMMARY PATIENT: JANICE FAIRCHILD UNIT: [id number] ADM DATE: 03/16/19 AGE: 73 : [birth year] SEX: F ROOM/BED: D.2305 AUTHOR: TYRON,DOC PHYSICIAN: REFERRING PHYSICIAN: CATA ODONNELL MD DATE OF SERVICE: 04/01/19 Discharge Plan Patient Name: JANICE FAIRCHILD Facility: [facility]:[place] : 1945 Planned Disposition: [facility] Acute Care Facility Anticipated Discharge Date: 04/01/19 Discharge Date: Expected LOS: 16 Initial Reviewer: [email or web address] Initial Review Date: 03/16/2019 Generated: 04/01/19 5:28 pm Comments DCP- Discharge Planning Updated by [id number]: Kavya Lopez on 04/01/19 3:[address] CM received call early this am from Chelsie Valdes patients daughter she stated that she didn't want patient to go to [facility] in [place]. She is requesting that patient go to [facility] in . CM explained that if [facility] accepts patient and can take her today then that will be fine. Otherwise patient will need to go to [facility] d/t the need for patient to get trach. Chelsie agreed to the circumstances. Ricardo with [facility] stated they would accept patient today. Called back with room number and requested that transfer be set up for 2pm today. CM faxed updated MAR and surgical take back agreement. [facility] for 2 pm. Nursing to call report. Ambulance transfer form completed. CM has discharge packet with facesheet, recent clinical and CD of images to send with patient ready. CM explained D/C IMM to daughter Chelsie Valdes and she agreed verbally via telephone. CM will continue to follow and assist as needed with discharge planning/ needs DCP- Discharge Planning Updated by [id number]: Alfie Ortez on 03/31/19 12:[address] Patient Name: JANICE FAIRCHILD Encounter No: [id number] : 1945 Primary Insurance: MEDICARE A & B Anticipated DC Date: Planned Disposition: [facility] Acute Care Facility External Planned Provider: [facility] DCP follow-up note: CM RECEIVED REQUEST FROM ICU NURSE SHERYL FOR UPDATE ON PLACEMENT. CM CALLED [facility], , SPOKE TO ROLANDA WHO INFORMED CM THAT SHE HAD TALKED TO VALERIE IN ICU WHO IS FAXING CULTURE RESULTS AND TODAYS DOCTOR NOTE TO [facility], [facility] NEEDS DR. BELLAMY PHONE NUMBER FOR PEER TO PEER. CM VERIFIED THAT INFORMATION HAD BEEN FAXED BY VALERIE OF ICU. CM NOTIFIED DR. ODONNELL AND OBTAINED PHONE NUMBER FOR PEER TO PEER. CM PROVIDED DR. ODONNELL'S NUMBER TO [facility] FOR PEER TO PEER. CM WAITING PEER TO PEER TO BE COMPLETED BETWEEN [facility] PHYSICIAN AND DR. ODONNELL WELL ADMISSION DETERMINATION FOR CONCRETE LABORER ACUTE CARE PLACEMENT. Alfie Ortez, CASE MANAGEMENT Appended by Alfie Ortez on 03/31/2019 13:26 CDT: CM RECEIVED CALL FROM [facility], , WHO ADVISED THAT DR. MARGARITA RICCI FROM [facility] WILL CALL DR. ODONNELL TOMORROW, 04-01-19; THEY WANT TO MAKE SURE PT IS STABLE AND DOES NOT NEED FURTHER SURGERY. DR. HEAD NOTIFIED OF PENDING CALL TOMORROW. CM WAITING PEER TO PEER TO BE COMPLETED BETWEEN [facility] PHYSICIAN AND DR. ODONNELL WELL ADMISSION DETERMINATION FOR CONCRETE LABORER ACUTE CARE PLACEMENT. Alfie Ortez, CASE MANAGEMENT DCP- Discharge Planning Updated by [id number]: Kavya Lopez on 03/30/19 4:[address] CM spoke with Ricardo Farias ([facility] ) after multiple attempts. CM checking on status of referral. Ricardo stated that the accepting physician was concerned that the patient may require additional surgery since WBC are elevated. Ricardo asked if our surgeon would be willing to do P2P to discuss patient. CM called Dr. Alvarenga to see if he would be willing to do P2P. Dr. Alvarenga stated that he would be willing to do P2P and would agree to take patient back if she should need further surgery. CM relayed this information to Ricardo and faxed updated records. Dr. Odonnell had spoke with someone from [facility] earlier today and he stated that [facility] physicians are off on vacation until next week. Dr. Odonnell stated to send out referrals to other [facility] facilities. CM spoke with daughter Chelsie and explained that CM would be sending out referrals to other facilities since patient has failed weaning off vent and will most likely need trach soon. [facility] referral sent. CM awaiting decisions from facilities. CM will continue to follow and assist as needed with discharge planning / needs. DCP- Discharge Planning Updated by [id number]: Kavya Lopez on 03/28/19 4:[address] CM received notice for LTACH placement . CM contacted Chelsie Pimentel patient's daughter regarding LTACH placement. Chelsie stated her 1st choice is [facility] and [facility]. CM contacted Yulia @ [facility] and faxed over records for evaluation. CM awaiting decision of approval / denial CM will continue to follow and assist as needed with discharge planning / needs. DCP- Discharge Planning Updated by [id number]: Kavya Lopez on 03/18/19 6:[address] CM has spoke with daughter Chelsie today. Chelsie is wanting patient to be placed in [facility] upon discharge. Chelsie doesn't realize the severity of patients condition. CM explained that patient is to have surgery today and again on Thursday. Chelsie states that her mother is very strong willed. CM explained that when patient was closer to discharge then CM would send a referral to [facility]. CM will continue to follow and assist as needed with discharge planning / needs. DCP- Discharge Planning Updated by [id number]: Kavya Lopez on 03/16/19 3:[address] Patient Name: JANICE FAIRCHILD Admission Status: ER Accout number: [id number] Admission Date: 03-16-2019 : 1945 Admission Diagnosis: Attending: CATA ODONNELL Current LOS: 1 Anticipated DC Date: Planned Disposition: Nursing Facility [facility] Primary Insurance: MEDICARE A & B Discharge Planning Comments: CM met with patient's daughter Chelsie Pimentel [phone]. Chelsie stated that patient was in [facility] in Memory Care Unit until the last few weeks. Chelsie stated that she has been caring for her mother at home for the last 3 weeks. Chelsie states that she has realized that she is incapable of being able to care for her mother at home. Chelsie states that she does not want patient to go back to [facility]. Chelsie states that she has spoken to Teresa @ [facility] and would like for patient to go there but Teresa stated they don't currently have a memory care bed availability. CRISTIANO signed for [facility] as 1st choice and 2nd choice is a facility locally with memory care unit. Chelsie stated that her mother got out of her home and was missing for 3 hours before police found her at [facility] on bench. Patient will definitely need to be in a facility that has a locked unit. CM contacted [facility], [facility], [facility] none have memory care units. [facility] will have a memory care unit opening March 28. CM contacted [facility] ([facility] [phone]) he stated they did have a memory care unit. CM sent referral to [facility]. CM will continue to follow and assist as needed with discharge planning / needs. Freelance Art Director: Kavya CARREON - Discharge Planning Initial Assessment Updated by [id number]: Kavya Lopez on 03/16/19 4:24 pm * Is the patient Alert and Oriented? Yes * PCP ZULY * Preadmission Environment Home with Family * ADLs Partial Dependent * Partial ADLs (Assistance needed) Bathing Dressing Eating Medication Management Toileting Transfers * List name and contact numbers for known caregivers / representatives who currently or will assist patient after discharge: Chelsie Pimentel - daughter - [phone], * Verbal permission to speak to the caregivers and representatives has been obtained from the patient. Yes * Community resources currently utilized None * Additional services required to return to the preadmission environment? No * Can the patient safely return to the preadmission environment? Yes * Has this patient been hospitalized within the prior 30 days at any hospital? No Coverage Notice Reviewer: [id number] - Kavya Lopez Notice Issued Date-Time: 04/01/2019 10:00 Notice Type: IM Discharge Notice Notice Delivered To: Patient Relationship to Patient: Daughter Inventory Specialist Manager Name: Chelsie Valdes Delivery Method: PHONE - Phone [place] Days: Prior Verbal Notification: Recipient Understood Notice: Yes Recipient Signature: Med Rec Note Co-signed by Attending: Coverage Notice Comment: Last DP export: 03/31/19 12:55 pm Patient Name: JANICE FAIRCHILD Page [id number] at 1628 All edits/amendments must be made on the electronic document DICTATION DATE: 04/01/191627 WHEEL LACER AND TRUER: JAY 04/01/191627 RPT#: [id number] DC DATE: STATUS: ADM IN [facility] [address] [place] [address] END OF REPORT
--- NOTE | 2019-04-01 17:10 | NUR ---
SPOKE WITH DAUGHTER TRUONG. IS AWARE PT IN PROCESS OF BEING PICKED UP BY EMS AND TO BE TRANSPORTED TO [facility]. PT CD PLAYER AND CD SENT ALONG WITH HER.
--- NOTE | 2019-04-01 17:12 | NUR ---
CALLED [facility] AND SPOKE WITH ADAM, LET HIM KNOW THAT PT IS IN TRANSIT.
--- NOTE | 2019-04-04 09:51 | MORECARE ---
CASE MANAGEMENT DISCHARGE SUMMARY PATIENT: JANICE FAIRCHILD UNIT: [id number] ADM DATE: 03/16/19 AGE: 73 : [birth year] SEX: F ROOM/BED: D.2305 AUTHOR: TYRON,DOC PHYSICIAN: REFERRING PHYSICIAN: CATA ODONNELL MD DATE OF SERVICE: 04/04/19 Discharge Plan Patient Name: JANICE FAIRCHILD Facility: [facility]:[place] : 1945 Planned Disposition: Senior Living Acute Care Facility Anticipated Discharge Date: 04/01/19 Discharge Date: 04/01/2019 Expected LOS: 16 Initial Reviewer: [email or web address] Initial Review Date: 03/16/2019 Generated: 04/04/19 10:50 am Comments DCP- Discharge Planning Updated by [id number]: Kavya Lopez on 04/01/19 3:[address] CM received call early this am from Chelsie Valdes patients daughter she stated that she didn't want patient to go to [facility] in [place]. She is requesting that patient go to [facility] in . CM explained that if [facility] accepts patient and can take her today then that will be fine. Otherwise patient will need to go to [facility] d/t the need for patient to get trach. Chelsie agreed to the circumstances. Ricardo with [facility] stated they would accept patient today. Called back with room number and requested that transfer be set up for 2pm today. CM faxed updated MAR and surgical take back agreement. [facility] for 2 pm. Nursing to call report. Ambulance transfer form completed. CM has discharge packet with facesheet, recent clinical and CD of images to send with patient ready. CM explained D/C IMM to daughter Chelsie Valdes and she agreed verbally via telephone. CM will continue to follow and assist as needed with discharge planning/ needs DCP- Discharge Planning Updated by [id number]: Alfie Ortez on 03/31/19 12:[address] Patient Name: JANICE FAIRCHILD Encounter No: [id number] : 1945 Primary Insurance: MEDICARE A & B Anticipated DC Date: Planned Disposition: Senior Living Acute Care Facility External Planned Provider: [facility] DCP follow-up note: CM RECEIVED REQUEST FROM ICU NURSE SHERYL FOR UPDATE ON PLACEMENT. CM CALLED [facility], , SPOKE TO ROLANDA WHO INFORMED CM THAT SHE HAD TALKED TO VALERIE IN ICU WHO IS FAXING CULTURE RESULTS AND TODAYS DOCTOR NOTE TO [facility], [facility] NEEDS DR. BELLAMY PHONE NUMBER FOR PEER TO PEER. CM VERIFIED THAT INFORMATION HAD BEEN FAXED BY VALERIE OF ICU. CM NOTIFIED DR. ODONNELL AND OBTAINED PHONE NUMBER FOR PEER TO PEER. CM PROVIDED DR. ODONNELL'S NUMBER TO [facility] FOR PEER TO PEER. CM WAITING PEER TO PEER TO BE COMPLETED BETWEEN [facility] PHYSICIAN AND DR. ODONNELL WELL ADMISSION DETERMINATION FOR CEMENTER MACHINE APPLICATOR ACUTE CARE PLACEMENT. Alfie Ortez, CASE MANAGEMENT Appended by Alfie Ortez on 03/31/2019 13:26 CDT: CM RECEIVED CALL FROM LOKESH OF [facility], , WHO ADVISED THAT DR. MARGARITA RICCI FROM [facility] WILL CALL DR. ODONNELL TOMORROW, 04-01-19; THEY WANT TO MAKE SURE PT IS STABLE AND DOES NOT NEED FURTHER SURGERY. DR. HEAD NOTIFIED OF PENDING CALL TOMORROW. CM WAITING PEER TO PEER TO BE COMPLETED BETWEEN [facility] PHYSICIAN AND DR. ODONNELL WELL ADMISSION DETERMINATION FOR PENITENTIARY ACUTE CARE PLACEMENT. Alfie Ortez, CASE MANAGEMENT DCP- Discharge Planning Updated by [id number]: Kavya Lopez on 03/30/19 4:[address] CM spoke with Ricardo Farias ([facility] ) after multiple attempts. CM checking on status of referral. Ricardo stated that the accepting physician was concerned that the patient may require additional surgery since WBC are elevated. Ricardo asked if our surgeon would be willing to do P2P to discuss patient. HEIDI called Dr. Alvarenga to see if he would be willing to do P2P. Dr. Alvarenga stated that he would be willing to do P2P and would agree to take patient back if she should need further surgery. CM relayed this information to Ricardo and faxed updated records. Dr. Odonnell had spoke with someone from [facility] earlier today and he stated that [facility]'s physicians are off on vacation until next week. Dr. Odonnell stated to send out referrals to other LTACH facilities. CM spoke with daughter Chelsie and explained that CM would be sending out referrals to other facilities since patient has failed weaning off vent and will most likely need trach soon. [facility] referral sent. CM awaiting decisions from facilities. CM will continue to follow and assist as needed with discharge planning / needs. DCP- Discharge Planning Updated by [id number]: Kavya Lopez on 03/28/19 4:[address] CM received notice for LTACH placement . CM contacted Chelsie Pimentel patient's daughter regarding LTACH placement. Chelsie stated her 1st choice is [facility] and [facility]. CM contacted Yulia @ [facility] and faxed over records for evaluation. CM awaiting decision of approval / denial CM will continue to follow and assist as needed with discharge planning / needs. DCP- Discharge Planning Updated by [id number]: Kavya Lopez on 03/18/19 6:[address] CM has spoke with daughter Chelsie today. Chelsie is wanting patient to be placed in [facility] upon discharge. Chelsie doesn't realize the severity of patients condition. CM explained that patient is to have surgery today and again on Thursday. Chelsie states that her mother is very strong willed. CM explained that when patient was closer to discharge then CM would send a referral to [facility]. CM will continue to follow and assist as needed with discharge planning / needs. DCP- Discharge Planning Updated by [id number]: Kavya Lopez on 03/16/19 3:[address] Patient Name: JANICE FAIRCHILD Admission Status: ER Accout number: [id number] Admission Date: 03-16-2019 : 1945 Admission Diagnosis: Attending: CATA ODONNELL Current LOS: 1 Anticipated DC Date: Planned Disposition: Nursing Facility [facility] Primary Insurance: MEDICARE A & B Discharge Planning Comments: CM met with patient's daughter Chelsie Pimentel [phone]. Chelsie stated that patient was in [facility] in Memory Care Unit until the last few weeks. Chelsie stated that she has been caring for her mother at home for the last 3 weeks. Chelsie states that she has realized that she is incapable of being able to care for her mother at home. Chelsie states that she does not want patient to go back to [facility]. Chelsie states that she has spoken to Teresa @ [facility] and would like for patient to go there but Teresa stated they don't currently have a memory care bed availability. CRISTIANO signed for [facility] as 1st choice and 2nd choice is a facility locally with memory care unit. Chelsie stated that her mother got out of her home and was missing for 3 hours before police found her at [facility] on bench. Patient will definitely need to be in a facility that has a locked unit. CM contacted [facility], [facility], [facility] none have memory care units. [facility] will have a memory care unit opening March 28. CM contacted [facility] ([facility] [phone]) he stated they did have a memory care unit. CM sent referral to [facility]. CM will continue to follow and assist as needed with discharge planning / needs. Senior Risk Analyst: Kavya CARREON - Discharge Planning Initial Assessment Updated by [id number]: Kavya Lopez on 03/16/19 4:24 pm * Is the patient Alert and Oriented? Yes * PCP ZULY * Preadmission Environment Home with Family * ADLs Partial Dependent * Partial ADLs (Assistance needed) Bathing Dressing Eating Medication Management Toileting Transfers * List name and contact numbers for known caregivers / representatives who currently or will assist patient after discharge: Chelsie Pimentel - daughter - [phone], * Verbal permission to speak to the caregivers and representatives has been obtained from the patient. Yes * Community resources currently utilized None * Additional services required to return to the preadmission environment? No * Can the patient safely return to the preadmission environment? Yes * Has this patient been hospitalized within the prior 30 days at any hospital? No Coverage Notice Reviewer: [id number] - Kavya Lopez Notice Issued Date-Time: 04/01/2019 10:00 Notice Type: IM Discharge Notice Notice Delivered To: Patient Relationship to Patient: Daughter Aircraft Design Engineer Name: Chelsie Valdes Delivery Method: PHONE - Phone [place] Days: Prior Verbal Notification: Recipient Understood Notice: Yes Recipient Signature: Med Rec Note Co-signed by Attending: Coverage Notice Comment: Last DP export: 04/01/19 3:28 pm Patient Name: JANICE FAIRCHILD Page [id number] at 0951 All edits/amendments must be made on the electronic document DICTATION DATE: 04/04/1949 DRY HEAT CABINET ATTENDANT: JAY 04/04/1949 RPT#: [id number] DC DATE:04/01/19 STATUS: DIS IN [facility] [address] [place] [address] END OF REPORT
[2019-04-04 11:08] LABS: FUNGUS CULTURE RESULT 1 Candida albicans (()); FUNGUS MYCOLOGY CULTURE Preliminary report (())
== END 2019-04-01 18:14 | DRG 326 ==
LOC: D.ER 02:28 → D.ICU 06:10
PROVIDERS: Family Medicine; Internal Medicine Gastroenterology; Internal Medicine Pulmonary Disease; Surgery; ADMIT Internal Medicine Nephrology; ATTEND Internal Medicine Nephrology
PROC: 0W3P4ZZ Control Bleeding in Gastrointestinal Tract, Percutaneous Endoscopic Approach (ICD-10-PCS; 2019-03-16)
PROC: 05HY33Z Insertion of Infusion Device into Upper Vein, Percutaneous Approach (ICD-10-PCS; 2019-03-16)
PROC: 0DB64ZZ Excision of Stomach, Percutaneous Endoscopic Approach (ICD-10-PCS; 2019-03-16)
PROC: 0BH17EZ Insertion of Endotracheal Airway into Trachea, Via Natural or Artificial Opening (ICD-10-PCS; 2019-03-16)
PROC: 5A1955Z Respiratory Ventilation, Greater than 96 Consecutive Hours (ICD-10-PCS; 2019-03-16)
PROC: 0DJ08ZZ Inspection of Upper Intestinal Tract, Via Natural or Artificial Opening Endoscopic (ICD-10-PCS; principal; 2019-03-16 16:00)
PROC: 0D9600Z Drainage of Stomach with Drainage Device, Open Approach (ICD-10-PCS; 2019-03-21)
PROC: 0WJP0ZZ Inspection of Gastrointestinal Tract, Open Approach (ICD-10-PCS; 2019-03-21)
PROC: 0WQF0ZZ Repair Abdominal Wall, Open Approach (ICD-10-PCS; 2019-03-21)
PROC: 0D9670Z Drainage of Stomach with Drainage Device, Via Natural or Artificial Opening (ICD-10-PCS; 2019-03-21)
PROC: 0DHA3UZ Insertion of Feeding Device into Jejunum, Percutaneous Approach (ICD-10-PCS; 2019-03-21)
PROC: 05HY33Z Insertion of Infusion Device into Upper Vein, Percutaneous Approach (ICD-10-PCS; 2019-03-22)
PROC: 0B9B8ZZ Drainage of Left Lower Lobe Bronchus, Via Natural or Artificial Opening Endoscopic (ICD-10-PCS; 2019-03-24)
PROC: 0B968ZZ Drainage of Right Lower Lobe Bronchus, Via Natural or Artificial Opening Endoscopic (ICD-10-PCS; 2019-03-24)
PROC: 0B978ZZ Drainage of Left Main Bronchus, Via Natural or Artificial Opening Endoscopic (ICD-10-PCS; 2019-03-28)
PROC: 0B938ZZ Drainage of Right Main Bronchus, Via Natural or Artificial Opening Endoscopic (ICD-10-PCS; 2019-03-28)
DX: K26.6 Chronic or unspecified duodenal ulcer with both hemorrhage and perforation (principal); E43 Unspecified severe protein-calorie malnutrition; R57.8 Other shock; J96.01 Acute respiratory failure with hypoxia; J15.6 Pneumonia due to other Gram-negative bacteria; D62 Acute posthemorrhagic anemia; N17.9 Acute kidney failure, unspecified; D68.9 Coagulation defect, unspecified; E87.0 Hyperosmolality and hypernatremia; G93.40 Encephalopathy, unspecified; I97.711 Intraoperative cardiac arrest during other surgery; E87.2 Acidosis; I82.622 Acute embolism and thrombosis of deep veins of left upper extremity; R55 Syncope and collapse; I95.9 Hypotension, unspecified; G30.9 Alzheimer's disease, unspecified; F02.80 Dementia in other diseases classified elsewhere, unspecified severity, without behavioral disturbance, psychotic disturbance, mood disturbance, and anxiety; J44.9 Chronic obstructive pulmonary disease, unspecified; E03.9 Hypothyroidism, unspecified; K21.0 Gastro-esophageal reflux disease with esophagitis; K22.2 Esophageal obstruction; E83.39 Other disorders of phosphorus metabolism; I10 Essential (primary) hypertension; E78.5 Hyperlipidemia, unspecified; E87.6 Hypokalemia; Y95 Nosocomial condition